=== PATIENT | female | born 1940 | race Two or more races ===

== ENCOUNTER → 2016-09-14 | Outpatient (CLI) | payer MEDICARE, OTHER ==
[~2016-09-14] MED LIST: GABA-497 OR; HYDR12.56 PO; LISI-646 PO; PANT40TA2 PO; PRAV20TA3 OR; TRAM50TA2 PO
[2016-09-14 09:17] LABS: Basophils # (auto) 0 uL; Basophils % (auto) 0.2 % (0.0-2.0); Eosinophils # (auto) 0.1 uL; Eosinophils % (auto) 1.9 % (0.0-7.0); Hematocrit 39.9 % (36.0-46.0); Hemoglobin 13.6 g/dL (12.2-16.2); Lymphocytes # (auto) 1.3 uL; Lymphocytes % (auto) 22.6 % (10.0-50.0); Mean Corpuscular Hemoglobin 31.3 pg (28.0-32.0); Mean Corpuscular Hgb Conc. 34.2 g/dL (32.0-36.0); Mean Corpuscular Volume 91.8 fL (80.0-100.0); Mean Platelet Volume 8.3 fL (7.4-10.4); Monocytes # (auto) 0.4 uL; Monocytes % (auto) 7.5 % (0.0-12.0); Neutrophils % (auto) 67.8 % (37.0-80.0); Platelet Count (auto) 281 10^3/uL (140-450); Red Cell Distribution Width 13.7 % (11.6-16.0)
[2016-09-14 09:38] LABS: Albumin 3.8 g/dL (3.4-5.0); BUN/Creatinine Ratio 23.3; Bilirubin, Total 0.5 mg/dL (0.2-1.0); Calcium 9.4 mg/dL (8.5-10.1); Potassium 4.3 mmol/L (3.5-5.1); Total Protein 7.9 g/dL (6.4-8.2)
== END | disposition home or self-care (01) ==
LOC: LAB 08:35
PROVIDERS: ATTEND Physician Assistant
DX: E78.5 Hyperlipidemia, unspecified (principal); I10 Essential (primary) hypertension; M46.06 Spinal enthesopathy, lumbar region; G62.9 Polyneuropathy, unspecified; M81.0 Age-related osteoporosis without current pathological fracture; Z68.31 Body mass index [BMI] 31.0-31.9, adult; E78.4 Other hyperlipidemia; R73.9 Hyperglycemia, unspecified
CPT/HCPCS: 36415; 80053; 80061; 82306; 82607; 83036; 85025

== ENCOUNTER → 2017-10-16 | Outpatient (CLI) | payer MEDICARE, OTHER ==
[~2017-10-16] MED LIST changes: -GABA-497 OR; +GABA300C11 OR
[2017-10-16 08:12] LABS: Basophils # (auto) 0 uL; Basophils % (auto) 0.4 % (0.0-2.0); Eosinophils # (auto) 0.1 uL; Eosinophils % (auto) 1.6 % (0.0-7.0); Hematocrit 42.2 % (36.0-46.0); Hemoglobin 14.3 g/dL (12.2-16.2); Lymphocytes # (auto) 1.2 uL; Lymphocytes % (auto) 22.1 % (10.0-50.0); Mean Corpuscular Hemoglobin 30.9 pg (28.0-32.0); Mean Corpuscular Hgb Conc. 33.8 g/dL (32.0-36.0); Mean Corpuscular Volume 91.3 fL (80.0-100.0); Monocytes # (auto) 0.4 uL; Monocytes % (auto) 7.1 % (0.0-12.0); Neutrophils # (auto) 3.6 uL; Neutrophils % (auto) 68.8 % (37.0-80.0); Platelet Count (auto) 270 10^3/uL (140-450); Red Blood Cells 4.62 10^6/uL (4.0-5.20); Red Cell Distribution Width 13.6 % (11.8-14.3); White Blood Cell 5.2 10^3/uL (4.4-10.8)
[2017-10-16 09:05] LABS: BUN/Creatinine Ratio 14.7; Bilirubin, Total 0.6 mg/dL (0.2-1.0); Calcium 9.9 mg/dL (8.5-10.1); Potassium 4.2 mmol/L (3.5-5.1)
[2017-10-17 14:01] LABS: Urine Bacteria FEW /hpf (None Seen); Urine Blood Negative /uL (Negative); Urine Mucus FEW (None Seen); Urine Specific Gravity 1.009 (1.001-1.035); Urine WBC 103 /hpf (0 - 5); Urine WBC Clumps PRESENT /hpf (None Seen)
== END | disposition home or self-care (01) ==
LOC: LAB 07:20
PROVIDERS: ATTEND Nurse Practitioner
DX: I10 Essential (primary) hypertension (principal); E78.5 Hyperlipidemia, unspecified; R68.89 Other general symptoms and signs; R79.9 Abnormal finding of blood chemistry, unspecified; K21.9 Gastro-esophageal reflux disease without esophagitis
CPT/HCPCS: 36415; 80053; 80061; 81001; 83036; 85025

== ENCOUNTER 2017-11-17 12:40 | Emergency (ER) | payer MEDICARE, OTHER ==
[~2017-11-17] VITALS: Ht 152.4 cm; Wt 59.4 kg
[2017-11-17] MEDS ORDERED: SODIUM CHLORIDE 0.9% 1,000 ML IV ONE (16:53)
[2017-11-17] MEDS ORDERED: MORPHINE SULFATE 4 MG/ML SYR/VIAL IV ONE (17:00)
[2017-11-17] MEDS ORDERED: DEXAMETHASONE SOD PHOS 4 MG/1ML SDV INJ IV ONE (17:00)
[2017-11-17] MEDS ORDERED: METOCLOPRAMIDE HCL 5MG/ml INJ 2ml VIAL IV ONE (17:00)
[2017-11-17 17:54] VITALS: BP 151/54
== END 2017-11-17 18:00 | disposition home or self-care (01) ==
LOC: ER 12:40
DX: S32.038A Other fracture of third lumbar vertebra, initial encounter for closed fracture (principal); M80.00XA Age-related osteoporosis with current pathological fracture, unspecified site, initial encounter for fracture; M54.16 Radiculopathy, lumbar region; K21.9 Gastro-esophageal reflux disease without esophagitis; E78.5 Hyperlipidemia, unspecified; I10 Essential (primary) hypertension; Z88.0 Allergy status to penicillin; Z79.899 Other long term (current) drug therapy; Z90.710 Acquired absence of both cervix and uterus; X58.XXXA Exposure to other specified factors, initial encounter; Y93.89 Activity, other specified; Y92.89 Other specified places as the place of occurrence of the external cause; Y99.8 Other external cause status
CPT/HCPCS: 72100; 74018; 93005; 96374; 96375; 99284; J1100; J2270; J2765; J7030; 96361

== ENCOUNTER → 2018-09-17 | Outpatient (CLI) | payer MEDICARE, OTHER ==
[2018-09-17 09:01] LABS: Basophils # (auto) 0 uL; Basophils % (auto) 0.6 % (0.0-2.0); Eosinophils # (auto) 0.1 uL; Eosinophils % (auto) 1.6 % (0.0-7.0); Hematocrit 40.6 % (36.0-46.0); Hemoglobin 13.6 g/dL (12.2-16.2); Lymphocytes # (auto) 1.7 uL; Lymphocytes % (auto) 31.2 % (10.0-50.0); Mean Corpuscular Hgb Conc. 33.4 g/dL (32.0-36.0); Mean Corpuscular Volume 92.9 fL (80.0-100.0); Monocytes # (auto) 0.4 uL; Monocytes % (auto) 8.3 % (0.0-12.0); Neutrophils # (auto) 3.1 uL; Neutrophils % (auto) 58.3 % (37.0-80.0); Platelet Count (auto) 239 10^3/uL (140-450); Red Blood Cells 4.37 10^6/uL (4.0-5.20); Red Cell Distribution Width 12.4 % (11.8-14.3); White Blood Cell 5.4 10^3/uL (4.4-10.8)
[2018-09-17 09:58] LABS: Potassium 4.1 mmol/L (3.5-5.1)
[2018-09-17 09:59] LABS: Albumin 3.9 g/dL (3.4-5.0); Bilirubin, Total 0.5 mg/dL (0.2-1.0); Calcium 9.2 mg/dL (8.5-10.1); Total Protein 7.6 g/dL (6.4-8.2)
== END | disposition home or self-care (01) ==
LOC: LAB 08:22
PROVIDERS: ATTEND Physician Assistant
DX: E78.5 Hyperlipidemia, unspecified (principal); M81.0 Age-related osteoporosis without current pathological fracture; I10 Essential (primary) hypertension; K21.9 Gastro-esophageal reflux disease without esophagitis; E55.9 Vitamin D deficiency, unspecified; R94.6 Abnormal results of thyroid function studies
CPT/HCPCS: 36415; 80053; 80061; 82306; 84443; 85025

== ENCOUNTER → 2020-01-22 | Outpatient (CLI) | payer MEDICARE, OTHER ==
[2020-01-22 08:57] LABS: Albumin 4.1 g/dL (3.4-5.0); Calcium 9.1 mg/dL (8.5-10.1); Potassium 4.2 mmol/L (3.5-5.1)
[2020-01-22 09:03] LABS: BUN/Creatinine Ratio 23.8; Bilirubin, Total 0.6 mg/dL (0.2-1.0); Total Protein 7.9 g/dL (6.4-8.2)
[2020-01-22 09:33] LABS: Basophils # (auto) 0 10 ^3/uL (0-0.2); Basophils % (auto) 0.5 % (0.0-2.0); Eosinophils # (auto) 0.1 10 ^3/uL (0-0.8); Eosinophils % (auto) 1.2 % (0.0-7.0); Hematocrit 39.5 % (36.0-46.0); Hemoglobin 13.8 g/dL (12.2-16.2); Lymphocytes # (auto) 1.2 10 ^3/uL (0.4-5.4); Lymphocytes % (auto) 22.5 % (10.0-50.0); Mean Corpuscular Hemoglobin 32.8 pg (28.0-32.0); Mean Corpuscular Hgb Conc. 34.9 g/dL (32.0-36.0); Mean Corpuscular Volume 94.1 fL (80.0-100.0); Monocytes # (auto) 0.3 10 ^3/uL (0-1.3); Monocytes % (auto) 6.4 % (0.0-12.0); Neutrophils # (auto) 3.7 10 ^3/uL (1.6-8.6); Neutrophils % (auto) 69.4 % (37.0-80.0); Nucleated Red Blood Cells % 0.1 %; Platelet Count (auto) 262 10^3/uL (140-450); Red Cell Distribution Width 12.4 % (11.8-14.3); White Blood Cell 5.3 10^3/uL (4.4-10.8)
== END | disposition home or self-care (01) ==
LOC: LAB 07:29
PROVIDERS: ATTEND Physician Assistant
DX: I10 Essential (primary) hypertension (principal); E78.5 Hyperlipidemia, unspecified; E55.9 Vitamin D deficiency, unspecified; Z00.00 Encounter for general adult medical examination without abnormal findings
CPT/HCPCS: 36415; 80053; 80061; 82306; 85025

== ENCOUNTER → 2020-05-12 | Outpatient (CLI) | payer MEDICARE, OTHER ==
[2020-05-12 11:09] LABS: Basophils # (auto) 0 10 ^3/uL (0-0.2); Basophils % (auto) 0.4 % (0.0-2.0); Eosinophils # (auto) 0.1 10 ^3/uL (0-0.8); Eosinophils % (auto) 2.2 % (0.0-7.0); Hematocrit 37.9 % (36.0-46.0); Hemoglobin 12.6 g/dL (12.2-16.2); Lymphocytes # (auto) 1.1 10 ^3/uL (0.4-5.4); Lymphocytes % (auto) 22.6 % (10.0-50.0); Mean Corpuscular Hemoglobin 31.2 pg (28.0-32.0); Mean Corpuscular Hgb Conc. 33.4 g/dL (32.0-36.0); Mean Corpuscular Volume 93.3 fL (80.0-100.0); Monocytes # (auto) 0.5 10 ^3/uL (0-1.3); Monocytes % (auto) 10.2 % (0.0-12.0); Neutrophils # (auto) 3.2 10 ^3/uL (1.6-8.6); Neutrophils % (auto) 64.6 % (37.0-80.0); Platelet Count (auto) 277 10^3/uL (140-450); Red Blood Cells 4.06 10^6/uL (4.0-5.20); Red Cell Distribution Width 12.6 % (11.8-14.3); White Blood Cell 4.9 10^3/uL (4.4-10.8)
[2020-05-12 11:54] LABS: Albumin 3.8 g/dL (3.4-5.0); Calcium 9.1 mg/dL (8.5-10.1)
[2020-05-12 11:57] LABS: BUN/Creatinine Ratio 17.6; Bilirubin, Total 0.4 mg/dL (0.2-1.0); Total Protein 7.6 g/dL (6.4-8.2)
[2020-05-12 17:24] LABS: Urine Blood Negative /uL (Negative); Urine Specific Gravity 1.012 (1.001-1.035)
== END | disposition home or self-care (01) ==
LOC: LAB 10:48
PROVIDERS: ATTEND Internal Medicine Gastroenterology
DX: R19.7 Diarrhea, unspecified (principal); R10.9 Unspecified abdominal pain
CPT/HCPCS: 36415; 80053; 81003; 82270; 84443; 85025; 85048; 87045; 87177; 87427; 87493

== ENCOUNTER → 2020-06-18 | Outpatient (CLI) | payer MEDICARE | END | disposition home or self-care (01) | LOC: LAB 14:21 | PROVIDERS: ATTEND Internal Medicine Gastroenterology | DX: A04.71 Enterocolitis due to Clostridium difficile, recurrent (principal); Z79.899 Other long term (current) drug therapy | CPT/HCPCS: 87086 ==

== ENCOUNTER 2020-09-28 09:23 | Inpatient (IN) | payer MEDICARE, OTHER ==
[2020-09-28] VITALS (8 sets, daily range): BP systolic 101–150; BP diastolic 39–86
[~2020-09-28] VITALS: Ht 152.4 cm; Wt 53.2 kg
[~2020-09-28 09:23] MED LIST changes: -LISI-646 PO; +LISI20TA28 PO
[2020-09-28 10:20] LABS: Basophils # (auto) 0 10 ^3/uL (0-0.2); Basophils % (auto) 0.7 % (0.0-2.0); Eosinophils # (auto) 0 10 ^3/uL (0-0.8)
[2020-09-28 10:22] LABS: Eosinophils % (auto) 0.3 % (0.0-7.0); Hematocrit 15.4 % (36.0-46.0); Lymphocytes # (auto) 1.4 10 ^3/uL (0.4-5.4); Lymphocytes % (auto) 32.3 % (10.0-50.0); Mean Corpuscular Hemoglobin 20.7 pg (28.0-32.0); Monocytes # (auto) 0.3 10 ^3/uL (0-1.3); Monocytes % (auto) 6.9 % (0.0-12.0); Neutrophils # (auto) 2.7 10 ^3/uL (1.6-8.6); Neutrophils % (auto) 59.8 % (37.0-80.0); Nucleated Red Blood Cells % 2.9 %; Red Blood Cells 2.23 10^6/uL (4.0-5.20); Red Cell Distribution Width 18.9 % (11.8-14.3); White Blood Cell 4.5 10^3/uL (4.4-10.8)
[2020-09-28 10:26] LABS: Albumin 3.5 g/dL (3.4-5.0); Calcium 8.6 mg/dL (8.5-10.1); Potassium 4.2 mmol/L (3.5-5.1)
[2020-09-28 10:29] LABS: Bilirubin, Total 0.6 mg/dL (0.2-1.0); Hemoglobin 4.6 g/dL (12.2-16.2)
[2020-09-28] MEDS ORDERED: ALEN70TA74 PO (10:54)
[2020-09-28] MEDS ORDERED: CHOL4POW4 PO (10:54)
[2020-09-28] MEDS ORDERED: HYDR25TA5 PO (10:54)
[2020-09-28] MEDS ORDERED: PANT40T PO (10:54)
[2020-09-28] MEDS ORDERED: PRAV20TA3 (10:54)
[2020-09-28] MEDS ORDERED: ACET30TA15 (10:54)
[2020-09-28 13:02] LABS: INR 1.03 (0.9-1.15); Partial Thromboplastin Time 22.2 sec (23.0-31.2)
[2020-09-28 13:38] LABS: Urine Bacteria MANY /hpf (None Seen); Urine Blood Negative /uL (Negative); Urine Specific Gravity 1.014 (1.001-1.035); Urine WBC 12 /hpf (0 - 5)
[2020-09-28] MEDS ORDERED: NITROGLYCERIN 0.4 MG SL TAB SL PRN (14:15)
[2020-09-28] MEDS ORDERED: ONDANSETRON HCL 4 MG/2 ML VIAL IV PRN (14:15)
[2020-09-28] MEDS ORDERED: MORPHINE SULFATE INJECTION 2 MG/ML SYRG IV PRN ×2 (14:15)
[2020-09-28] MEDS ORDERED: ACETAMINOPHEN 325 MG TAB PO PRN (14:15)
[2020-09-28 16:15] LABS: Folate (Folic Acid) > 24.00 ng/mL (5.38-24)
[2020-09-28] MEDS: FUROSEMIDE 40 MG/4 ML VIAL IV SCH (18:36)
[2020-09-28] MEDS: ATORVASTATIN 20 MG TAB PO SCH (22:28)
[2020-09-28] MEDS: METOPROLOL TARTRATE 25 MG TAB PO SCH (22:29)
[2020-09-28 23:04] LABS: Hematocrit 19.9 % (36.0-46.0); Hemoglobin 7.6 g/dL (12.2-16.2)
[2020-09-29] VITALS (10 sets, daily range): BP systolic 128–147; BP diastolic 49–72
[2020-09-29] MEDS: ACETAMINOPHEN/CODEINE#3 (300/30mg) TAB PO PRN (03:29)
[2020-09-29] MEDS: FUROSEMIDE 40 MG/4 ML VIAL IV SCH (06:05)
[2020-09-29 06:35] LABS: Basophils # (auto) 0 10 ^3/uL (0-0.2); Basophils % (auto) 0.5 % (0.0-2.0); Eosinophils # (auto) 0.1 10 ^3/uL (0-0.8); Eosinophils % (auto) 0.6 % (0.0-7.0); Hematocrit 23.7 % (36.0-46.0); Hemoglobin 7.7 g/dL (12.2-16.2); Lymphocytes # (auto) 1.3 10 ^3/uL (0.4-5.4); Lymphocytes % (auto) 15.9 % (10.0-50.0); Mean Corpuscular Hemoglobin 23.5 pg (28.0-32.0); Mean Corpuscular Hgb Conc. 32.3 g/dL (32.0-36.0); Mean Corpuscular Volume 72.7 fL (80.0-100.0); Monocytes # (auto) 0.6 10 ^3/uL (0-1.3); Monocytes % (auto) 7.4 % (0.0-12.0); Neutrophils # (auto) 6.2 10 ^3/uL (1.6-8.6); Neutrophils % (auto) 75.6 % (37.0-80.0); Nucleated Red Blood Cells % 3.1 %; Red Blood Cells 3.25 10^6/uL (4.0-5.20); Red Cell Distribution Width 20.4 % (11.8-14.3); White Blood Cell 8.2 10^3/uL (4.4-10.8)
[2020-09-29 06:51] LABS: Calcium 8.3 mg/dL (8.5-10.1); Potassium 4.3 mmol/L (3.5-5.1)
[2020-09-29 06:57] LABS: BUN/Creatinine Ratio 23.9
[2020-09-29] MEDS: METOPROLOL TARTRATE 25 MG TAB PO SCH ×2 (09:45→21:55)
[2020-09-29] MEDS: PANTOPRAZOLE 40 MG TAB PO SCH (09:45)
[2020-09-29] MEDS ORDERED: LISINOPRIL 10 MG TAB PO SCH (10:00)
[2020-09-29] MEDS ORDERED: cefTRIAXone 1GM/50ML D5W 50 ML IV ONE (12:00)
[2020-09-29] MEDS ORDERED: ACETYLCYSTEINE ORAL for CIN 20%(200MG/ML) 4ML PO ONE (17:00)
[2020-09-29] MEDS: ATORVASTATIN 20 MG TAB PO SCH (21:54)
[2020-09-30 04:48] VITALS: BP 150/70
[2020-09-30] MEDS: ACETYLCYSTEINE ORAL for CIN 20%(200MG/ML) 4ML PO SCH ×2 (05:14→18:04)
[2020-09-30 07:23] LABS: Hematocrit 27.7 % (36.0-46.0); Hemoglobin 9.1 g/dL (12.2-16.2); Mean Corpuscular Hemoglobin 26.6 pg (28.0-32.0); White Blood Cell 7.2 10^3/uL (4.4-10.8)
[2020-09-30 07:25] LABS: Mean Corpuscular Hgb Conc. 32.7 g/dL (32.0-36.0); Mean Corpuscular Volume 81.5 fL (80.0-100.0)
[2020-09-30 07:29] LABS: Potassium 3.4 mmol/L (3.5-5.1)
[2020-09-30 07:30] LABS: Red Cell Distribution Width 22.9 % (11.8-14.3)
[2020-09-30 07:32] LABS: Band Neutrophils % (manual) 0; Basophils % (manual) 0 (0.0-2.0); Blast Cells 0; Metamyelocytes % 0; Myelocytes % 0; Promyelocytes % 0; Reactive Lymphocytes 0
[2020-09-30 07:33] LABS: Calcium 8.6 mg/dL (8.5-10.1)
[2020-09-30 08:09] LABS: Eosinophils % (manual) 2 (0-7); Lymphocytes % (manual) 7 (10.0-50.0); Monocytes % (manual) 6 (0-12)
[2020-09-30 08:30] VITALS: BP 139/65
[2020-09-30] MEDS: cefTRIAXone 1GM/50ML D5W 50 ML IV SCH (08:46)
[2020-09-30] MEDS: METOPROLOL TARTRATE 25 MG TAB PO SCH ×2 (08:47→21:56)
[2020-09-30] MEDS ORDERED: POTASSIUM CHL 10 Meq TABLET PO ONE (09:15)
[2020-09-30] MEDS: PANTOPRAZOLE 40 MG TAB PO SCH (09:50)
[2020-09-30] MEDS ORDERED: FUROSEMIDE 40 MG/4 ML VIAL IV SCH (10:00)
[2020-09-30 12:30] VITALS: BP 147/68
[2020-09-30] MEDS ORDERED: ANGIOMAX 250 MG VIAL IV ONE (14:31)
[2020-09-30] MEDS ORDERED: fentaNYL CITRATE 100 MCG/2 ML VL ONE (14:31)
[2020-09-30] MEDS ORDERED: MIDAZOLAM HCL 2MG/2ML 2ml VIAL (1mg/ml) ONE (14:32)
[2020-09-30] MEDS ORDERED: SODIUM CHL 0.9% 0 ML ONE (14:32)
[2020-09-30] MEDS ORDERED: LIDOCAINE 2%HCL (LOCAL ANESTH.) INJ 20ML MDV ONE ×2 (14:32→14:37)
[2020-09-30 17:00] VITALS: BP 134/66
[2020-09-30] MEDS: ACETAMINOPHEN/CODEINE#3 (300/30mg) TAB PO PRN (17:46)
[2020-09-30] MEDS: ATORVASTATIN 20 MG TAB PO SCH (21:55)
[2020-09-30 22:00] VITALS: BP 147/63
[2020-10-01 05:00] VITALS: BP 148/70
[2020-10-01] MEDS: ACETYLCYSTEINE ORAL for CIN 20%(200MG/ML) 4ML PO SCH (05:25)
[2020-10-01] MEDS: ACETAMINOPHEN/CODEINE#3 (300/30mg) TAB PO PRN (05:26)
[2020-10-01 05:40] LABS: Hemoglobin 8.7 g/dL (12.2-16.2)
[2020-10-01 06:01] LABS: Calcium 8.6 mg/dL (8.5-10.1); Potassium 3.6 mmol/L (3.5-5.1)
[2020-10-01 06:03] LABS: BUN/Creatinine Ratio 28.9
[2020-10-01 08:00] VITALS: BP 135/60
[2020-10-01 09:00] VITALS: BP 135/60
[2020-10-01] MEDS: cefTRIAXone 1GM/50ML D5W 50 ML IV SCH (09:48)
[2020-10-01] MEDS: METOPROLOL TARTRATE 25 MG TAB PO SCH (09:49)
[2020-10-01] MEDS: PANTOPRAZOLE 40 MG TAB PO SCH (09:49)
[2020-10-01 12:40] VITALS: BP 120/59
[2020-10-01] MEDS ORDERED: PANT40T PO (13:10)
[2020-10-01] MEDS ORDERED: MET25T PO (13:10)
[2020-10-01] MEDS ORDERED: CEPH500T PO (13:13)
[2020-10-01] MEDS ORDERED: FUROSEMIDE 40 MG TAB PO ONE (13:15)
[2020-10-01] MEDS ORDERED: POTASSIUM CHL 10 Meq TABLET PO ONE (13:15)
[2020-10-01 16:57] VITALS: BP 137/61
[2020-10-01 17:12] VITALS: BP 110/57
[2020-12-14] MEDS ORDERED: FER325T PO (11:05)
== END 2020-10-01 17:40 | disposition home health service (06) | DRG 811 ==
LOC: ER 09:23 → TELE 14:12 → TELE-EAST 17:47
PROVIDERS: ADMIT Nurse Practitioner Acute Care; ATTEND Internal Medicine
PROC: 30233N1 Transfusion of Nonautologous Red Blood Cells into Peripheral Vein, Percutaneous Approach (ICD-10-PCS; 2020-09-28)
PROC: 4A023N8 Measurement of Cardiac Sampling and Pressure, Bilateral, Percutaneous Approach (ICD-10-PCS; principal; 2020-09-30)
PROC: B211YZZ Fluoroscopy of Multiple Coronary Arteries using Other Contrast (ICD-10-PCS; 2020-09-30)
PROC: B215YZZ Fluoroscopy of Left Heart using Other Contrast (ICD-10-PCS; 2020-09-30)
DX: D50.9 Iron deficiency anemia, unspecified (principal); I50.43 Acute on chronic combined systolic (congestive) and diastolic (congestive) heart failure; E87.1 Hypo-osmolality and hyponatremia; N39.0 Urinary tract infection, site not specified; M48.54XA Collapsed vertebra, not elsewhere classified, thoracic region, initial encounter for fracture; I27.20 Pulmonary hypertension, unspecified; I11.0 Hypertensive heart disease with heart failure; R09.89 Other specified symptoms and signs involving the circulatory and respiratory systems; E78.5 Hyperlipidemia, unspecified; M19.90 Unspecified osteoarthritis, unspecified site; M81.0 Age-related osteoporosis without current pathological fracture; B96.20 Unspecified Escherichia coli [E. coli] as the cause of diseases classified elsewhere; K21.9 Gastro-esophageal reflux disease without esophagitis; M43.8X4 Other specified deforming dorsopathies, thoracic region; I50.83 High output heart failure; N81.10 Cystocele, unspecified; K44.9 Diaphragmatic hernia without obstruction or gangrene; Z20.822 Contact with and (suspected) exposure to COVID-19; Z88.0 Allergy status to penicillin; Z90.710 Acquired absence of both cervix and uterus; Z79.899 Other long term (current) drug therapy
CPT/HCPCS: 36415; 36430; 71045; 74176; 80048; 80053; 80061; 81001; 82270; 82607; 82746; 83010; 83615; 83880; 84443; 85007; 85014; 85018; 85025; 85027; 85045; 85610; 85730; 86850; 86880; 86900; 86901; 86920; 87086; 87088; 87186; 87426; 93005; 93306; 93460; 93926; 93970; 96365; 96375; 99152; 99153; C1751; G0378; J0696; J2250

== ENCOUNTER → 2020-10-08 | Outpatient (CLI) | payer MEDICARE ==
[~2020-10-08] MED LIST changes: +ACET30TA15; +ALEN70TA74 PO; +CEPH500T PO; +HYDR25TA5 PO; +MET25T PO; +PANT40T PO; -PRAV20TA3 OR
[2020-10-08 12:35] LABS: Basophils # (auto) 0.1 10 ^3/uL (0-0.2); Eosinophils # (auto) 0.1 10 ^3/uL (0-0.8); Lymphocytes # (auto) 1.4 10 ^3/uL (0.4-5.4); Monocytes # (auto) 0.6 10 ^3/uL (0-1.3); Platelet Count (auto) 326 10^3/uL (140-450)
[2020-10-08 12:37] LABS: Basophils % (auto) 1.1 % (0.0-2.0); Eosinophils % (auto) 1.5 % (0.0-7.0); Hematocrit 23.9 % (36.0-46.0); Lymphocytes % (auto) 28.1 % (10.0-50.0); Mean Corpuscular Hemoglobin 25.4 pg (28.0-32.0); Mean Corpuscular Hgb Conc. 33.6 g/dL (32.0-36.0); Mean Corpuscular Volume 75.8 fL (80.0-100.0); Monocytes % (auto) 11.5 % (0.0-12.0); Neutrophils # (auto) 2.9 10 ^3/uL (1.6-8.6); Neutrophils % (auto) 57.8 % (37.0-80.0); Nucleated Red Blood Cells % 0.1 %; Red Blood Cells 3.15 10^6/uL (4.0-5.20)
[2020-10-08 12:38] LABS: Red Cell Distribution Width 24.4 % (11.8-14.3)
[2020-10-08 12:56] LABS: BUN/Creatinine Ratio 39.7; Calcium 8.5 mg/dL (8.5-10.1); Potassium 4.4 mmol/L (3.5-5.1)
== END | disposition home or self-care (01) ==
LOC: LAB 12:15
PROVIDERS: ATTEND Internal Medicine
DX: D64.9 Anemia, unspecified (principal); I27.20 Pulmonary hypertension, unspecified
CPT/HCPCS: 36415; 80048; 85025

== ENCOUNTER 2020-12-09 17:36 | Inpatient (IN) | payer MEDICARE, OTHER ==
[~2020-12-09] VITALS: Ht 149.9 cm; Wt 57.8 kg
[2020-12-09 19:16] LABS: Basophils # (auto) 0 10 ^3/uL (0-0.2); Monocytes # (auto) 0.5 10 ^3/uL (0-1.3)
[2020-12-09 19:19] LABS: Basophils % (auto) 0.9 % (0.0-2.0); Eosinophils # (auto) 0.1 10 ^3/uL (0-0.8); Hematocrit 18.4 % (36.0-46.0); Lymphocytes % (auto) 18.3 % (10.0-50.0); Mean Corpuscular Hemoglobin 21.4 pg (28.0-32.0); Mean Corpuscular Hgb Conc. 29.6 g/dL (32.0-36.0); Mean Corpuscular Volume 72.3 fL (80.0-100.0); Monocytes % (auto) 8.9 % (0.0-12.0); Neutrophils # (auto) 3.9 10 ^3/uL (1.6-8.6); Neutrophils % (auto) 70.9 % (37.0-80.0); Nucleated Red Blood Cells % 0.9 %; Red Blood Cells 2.54 10^6/uL (4.0-5.20); White Blood Cell 5.5 10^3/uL (4.4-10.8)
[2020-12-09 19:28] LABS: Hemoglobin 5.4 g/dL (12.2-16.2)
[2020-12-09 19:34] LABS: Albumin 2.9 g/dL (3.4-5.0); Calcium 8.4 mg/dL (8.5-10.1); Potassium 4.2 mmol/L (3.5-5.1)
[2020-12-09 19:40] LABS: BUN/Creatinine Ratio 20.4; Bilirubin, Total 0.3 mg/dL (0.2-1.0)
[2020-12-09 20:07] LABS: INR 0.99 (0.9-1.15); Partial Thromboplastin Time 23.9 sec (23.6-33.0)
[2020-12-09 21:31] VITALS: BP 114/39
[2020-12-09] MEDS ORDERED: ALBUMIN 25% 50 ML IV ONE (21:45)
[2020-12-09] MEDS ORDERED: MORPHINE SULFATE INJECTION 2 MG/2 ML SYRG IV PRN (21:45)
[2020-12-09] MEDS ORDERED: DOCUSATE SOD 100 MG CAP PO PRN (21:45)
[2020-12-09] MEDS ORDERED: NITROGLYCERIN 0.4 MG SL TAB SL PRN (21:45)
[2020-12-09] MEDS ORDERED: ONDANSETRON HCL 4 MG/2 ML VIAL IV PRN (21:45)
[2020-12-09] MEDS ORDERED: SODIUM CHLORIDE 0.9% 1,000 ML IV SCH (21:45)
[2020-12-09] MEDS ORDERED: ACETAMINOPHEN 325 MG TAB PO PRN (21:45)
[2020-12-09 21:50] VITALS: BP 115/39
[2020-12-09] MEDS ORDERED: FAMOTIDINE (10MG/ML) 2ML VL IV SCH (22:00)
[2020-12-09] MEDS: ASCORBIC ACID 500 MG TAB PO SCH (22:39)
[2020-12-09] MEDS: FAMOTIDINE (10MG/ML) 2ML VL IV SCH (23:34)
[2020-12-10] MEDS: HYDROcodone-ACET 5/325MG TAB PO PRN ×2 (00:12→10:04)
[2020-12-10 00:39] VITALS: BP 124/44
[2020-12-10 00:49] VITALS: BP 124/44
[2020-12-10 03:00] VITALS: BP 133/65
[2020-12-10 04:00] VITALS: BP 141/64
[2020-12-10 04:31] VITALS: BP 147/60
[2020-12-10 07:43] LABS: Basophils # (auto) 0 10 ^3/uL (0-0.2); Eosinophils # (auto) 0.1 10 ^3/uL (0-0.8); Eosinophils % (auto) 0.9 % (0.0-7.0); Lymphocytes # (auto) 1.2 10 ^3/uL (0.4-5.4); Neutrophils # (auto) 4.4 10 ^3/uL (1.6-8.6)
[2020-12-10 07:45] LABS: Basophils % (auto) 0.7 % (0.0-2.0); Hematocrit 24.8 % (36.0-46.0); Lymphocytes % (auto) 18.9 % (10.0-50.0); Mean Corpuscular Hemoglobin 24.8 pg (28.0-32.0); Mean Corpuscular Hgb Conc. 32.3 g/dL (32.0-36.0); Mean Corpuscular Volume 76.7 fL (80.0-100.0); Monocytes # (auto) 0.7 10 ^3/uL (0-1.3); Monocytes % (auto) 10.4 % (0.0-12.0); Neutrophils % (auto) 69.1 % (37.0-80.0); Nucleated Red Blood Cells % 0.6 %; Red Blood Cells 3.23 10^6/uL (4.0-5.20); White Blood Cell 6.4 10^3/uL (4.4-10.8)
[2020-12-10 07:49] LABS: Red Cell Distribution Width 22.1 % (11.8-14.3)
[2020-12-10 07:58] LABS: Albumin 2.8 g/dL (3.4-5.0); Calcium 8.2 mg/dL (8.5-10.1); Potassium 4.3 mmol/L (3.5-5.1)
[2020-12-10 08:02] LABS: BUN/Creatinine Ratio 24.7; Bilirubin, Total 0.5 mg/dL (0.2-1.0); Total Protein 6.5 g/dL (6.4-8.2)
[2020-12-10] MEDS: FAMOTIDINE (10MG/ML) 2ML VL IV SCH (09:48)
[2020-12-10] MEDS: MULTIPLE VITAMIN TAB PO SCH (09:52)
[2020-12-10] MEDS: ZINC SULFATE 220mg CAP or TAB PO SCH (09:52)
[2020-12-10] MEDS: ASCORBIC ACID 500 MG TAB PO SCH ×2 (09:52→21:17)
[2020-12-10] MEDS ORDERED: PANTOPRAZOLE 40 MG TAB PO ONE (12:15)
[2020-12-10] MEDS: GABAPENTIN 300 MG CAP PO SCH ×2 (15:19→21:17)
[2020-12-10] MEDS: Ensure HIGH Protein Chocolate 8oz Bottle PO SCH (17:45)
[2020-12-10] MEDS: METOPROLOL TARTRATE 25 MG TAB PO SCH (21:16)
[2020-12-10 22:00] VITALS: BP 141/62
[2020-12-10] MEDS: traMADol HCL 50 MG TAB PO PRN (22:33)
[2020-12-10 23:14] LABS: Urine Bacteria FEW /hpf (None Seen); Urine Blood Negative /uL (Negative); Urine Specific Gravity 1.009 (1.001-1.035); Urine WBC 32 /hpf (0 - 5)
[2020-12-11 05:00] VITALS: BP 153/77
[2020-12-11 05:47] LABS: % Iron Saturation 3.1 % (15-50)
[2020-12-11 05:52] LABS: Potassium 4.2 mmol/L (3.5-5.1)
[2020-12-11] MEDS: GABAPENTIN 300 MG CAP PO SCH ×2 (05:58→13:27)
[2020-12-11 06:01] LABS: Albumin 2.8 g/dL (3.4-5.0); Bilirubin, Total 0.6 mg/dL (0.2-1.0); Calcium 8.7 mg/dL (8.5-10.1); Total Protein 6.5 g/dL (6.4-8.2)
[2020-12-11 06:50] LABS: Basophils # (auto) 0 10 ^3/uL (0-0.2); Basophils % (auto) 0.4 % (0.0-2.0); Eosinophils # (auto) 0.1 10 ^3/uL (0-0.8); Eosinophils % (auto) 0.9 % (0.0-7.0); Hematocrit 26.6 % (36.0-46.0); Hemoglobin 8.3 g/dL (12.2-16.2); Lymphocytes # (auto) 1.2 10 ^3/uL (0.4-5.4); Lymphocytes % (auto) 14.5 % (10.0-50.0); Mean Corpuscular Hemoglobin 23.7 pg (28.0-32.0); Mean Corpuscular Volume 76.4 fL (80.0-100.0); Monocytes # (auto) 0.6 10 ^3/uL (0-1.3); Neutrophils # (auto) 6.2 10 ^3/uL (1.6-8.6); Neutrophils % (auto) 76.2 % (37.0-80.0); Nucleated Red Blood Cells % 0.5 %; Red Blood Cells 3.48 10^6/uL (4.0-5.20); Red Cell Distribution Width 22.2 % (11.8-14.3); White Blood Cell 8.1 10^3/uL (4.4-10.8)
[2020-12-11] MEDS: Ensure HIGH Protein Chocolate 8oz Bottle PO SCH ×3 (08:00→18:00)
[2020-12-11 09:00] VITALS: BP 133/76
[2020-12-11] MEDS: ACETAMINOPHEN/CODEINE#3 (300/30mg) TAB PO PRN ×2 (09:30→17:13)
[2020-12-11] MEDS: METOPROLOL TARTRATE 25 MG TAB PO SCH ×2 (10:00→22:23)
[2020-12-11] MEDS: ASCORBIC ACID 500 MG TAB PO SCH ×2 (10:00→22:24)
[2020-12-11] MEDS: LISINOPRIL 10 MG TAB PO SCH (10:00)
[2020-12-11] MEDS: MULTIPLE VITAMIN TAB PO SCH (10:00)
[2020-12-11] MEDS: HCTZ 25 MG TAB PO SCH (10:00)
[2020-12-11] MEDS: PANTOPRAZOLE 40 MG TAB PO SCH (10:00)
[2020-12-11] MEDS: ZINC SULFATE 220mg CAP or TAB PO SCH (10:00)
[2020-12-11] MEDS: FAMOTIDINE (10MG/ML) 2ML VL IV SCH (10:14)
[2020-12-11] MEDS ORDERED: levoFLOXacin 250 MG TAB PO ONE (10:45)
[2020-12-11 13:00] VITALS: BP 121/47
[2020-12-11 17:00] VITALS: BP 119/50
[2020-12-11 22:00] VITALS: BP 132/67
[2020-12-11] MEDS: GABAPENTIN 400 MG CAP PO SCH (22:24)
[2020-12-12] MEDS: ACETAMINOPHEN/CODEINE#3 (300/30mg) TAB PO PRN ×3 (00:47→23:58)
[2020-12-12 05:00] VITALS: BP 132/58
[2020-12-12 07:25] LABS: Basophils # (auto) 0 10 ^3/uL (0-0.2); Basophils % (auto) 0.7 % (0.0-2.0); Eosinophils # (auto) 0.1 10 ^3/uL (0-0.8); Hematocrit 26.9 % (36.0-46.0); Hemoglobin 8.6 g/dL (12.2-16.2); Lymphocytes # (auto) 1.4 10 ^3/uL (0.4-5.4); Lymphocytes % (auto) 23.4 % (10.0-50.0); Mean Corpuscular Hemoglobin 24.8 pg (28.0-32.0); Mean Corpuscular Hgb Conc. 31.9 g/dL (32.0-36.0); Mean Corpuscular Volume 77.9 fL (80.0-100.0); Monocytes # (auto) 0.7 10 ^3/uL (0-1.3); Monocytes % (auto) 11.3 % (0.0-12.0); Neutrophils # (auto) 3.8 10 ^3/uL (1.6-8.6); Neutrophils % (auto) 62.6 % (37.0-80.0); Nucleated Red Blood Cells % 0.4 %; Red Blood Cells 3.45 10^6/uL (4.0-5.20); White Blood Cell 6.1 10^3/uL (4.4-10.8)
[2020-12-12 07:26] LABS: Red Cell Distribution Width 22.5 % (11.8-14.3)
[2020-12-12 07:48] LABS: Calcium 8.8 mg/dL (8.5-10.1); Potassium 4.3 mmol/L (3.5-5.1)
[2020-12-12 07:50] LABS: BUN/Creatinine Ratio 41.4
[2020-12-12 09:00] VITALS: BP 149/75
[2020-12-12] MEDS ORDERED: GOLYTELY 4L KIT PO ONE (10:00)
[2020-12-12] MEDS ORDERED: levoFLOXacin 250 MG TAB PO SCH (10:00)
[2020-12-12] MEDS: FAMOTIDINE (10MG/ML) 2ML VL IV SCH (10:44)
[2020-12-12] MEDS: ZINC SULFATE 220mg CAP or TAB PO SCH (10:46)
[2020-12-12] MEDS: HCTZ 25 MG TAB PO SCH (10:47)
[2020-12-12] MEDS: MULTIPLE VITAMIN TAB PO SCH (10:49)
[2020-12-12] MEDS: METOPROLOL TARTRATE 25 MG TAB PO SCH ×2 (10:49→22:47)
[2020-12-12] MEDS: PANTOPRAZOLE 40 MG TAB PO SCH (10:50)
[2020-12-12] MEDS: ASCORBIC ACID 500 MG TAB PO SCH ×2 (10:50→22:48)
[2020-12-12] MEDS: GABAPENTIN 400 MG CAP PO SCH ×2 (10:50→22:47)
[2020-12-12] MEDS: LISINOPRIL 10 MG TAB PO SCH (10:50)
[2020-12-12] MEDS: Ensure HIGH Protein Chocolate 8oz Bottle PO SCH ×3 (10:58→18:16)
[2020-12-12 13:06] VITALS: BP 148/61
[2020-12-12 16:49] VITALS: BP 147/74
[2020-12-12] MEDS: traMADol HCL 50 MG TAB PO PRN (19:34)
[2020-12-12 22:00] VITALS: BP 121/55
[2020-12-13 05:37] VITALS: BP 140/49
[2020-12-13 06:09] LABS: Basophils # (auto) 0.1 10 ^3/uL (0-0.2); Eosinophils # (auto) 0.1 10 ^3/uL (0-0.8); Eosinophils % (auto) 2.2 % (0.0-7.0); Hematocrit 24.9 % (36.0-46.0); Hemoglobin 8.5 g/dL (12.2-16.2); Lymphocytes # (auto) 1.3 10 ^3/uL (0.4-5.4); Lymphocytes % (auto) 23.5 % (10.0-50.0); Mean Corpuscular Hemoglobin 27.9 pg (28.0-32.0); Mean Corpuscular Volume 81.9 fL (80.0-100.0); Monocytes # (auto) 0.5 10 ^3/uL (0-1.3); Neutrophils # (auto) 3.4 10 ^3/uL (1.6-8.6); Neutrophils % (auto) 63.3 % (37.0-80.0); Nucleated Red Blood Cells % 0.3 %; Red Blood Cells 3.05 10^6/uL (4.0-5.20); White Blood Cell 5.4 10^3/uL (4.4-10.8)
[2020-12-13 06:21] LABS: INR 1.05 (0.9-1.15)
[2020-12-13 06:32] LABS: Potassium 3.5 mmol/L (3.5-5.1)
[2020-12-13 06:54] LABS: BUN/Creatinine Ratio 18.5; Calcium 8.5 mg/dL (8.5-10.1)
[2020-12-13] MEDS: Ensure HIGH Protein Chocolate 8oz Bottle PO SCH ×3 (08:00→18:30)
[2020-12-13 09:00] VITALS: BP 159/76
[2020-12-13] MEDS: HCTZ 25 MG TAB PO SCH (09:55)
[2020-12-13] MEDS: LISINOPRIL 10 MG TAB PO SCH (09:55)
[2020-12-13] MEDS: METOPROLOL TARTRATE 25 MG TAB PO SCH ×2 (09:56→20:30)
[2020-12-13] MEDS: ASCORBIC ACID 500 MG TAB PO SCH ×2 (10:00→20:30)
[2020-12-13] MEDS: GABAPENTIN 400 MG CAP PO SCH ×2 (10:00→20:30)
[2020-12-13 12:51] VITALS: BP 157/72
[2020-12-13] MEDS ORDERED: MIDAZOLAM HCL 2MG/2ML 2ml VIAL (1mg/ml) ONE (13:06)
[2020-12-13] MEDS ORDERED: fentaNYL CITRATE 100 MCG/2 ML VL ONE (13:06)
[2020-12-13] MEDS ORDERED: ONDANSETRON HCL 4 MG/2 ML VIAL ONE (13:40)
[2020-12-13] MEDS ORDERED: ONDANSETRON HCL 4 MG/2 ML VIAL IV PRN (14:45)
[2020-12-13] MEDS: ZINC SULFATE 220mg CAP or TAB PO SCH (16:58)
[2020-12-13] MEDS: MULTIPLE VITAMIN TAB PO SCH (16:58)
[2020-12-13] MEDS: PANTOPRAZOLE 40 MG TAB PO SCH (16:58)
[2020-12-13 17:00] VITALS: BP 144/66
[2020-12-13] MEDS: traMADol HCL 50 MG TAB PO PRN (20:29)
[2020-12-13 22:00] VITALS: BP 121/57
[2020-12-14 05:00] VITALS: BP 132/64
[2020-12-14 06:57] LABS: Hemoglobin 8.5 g/dL (12.2-16.2)
[2020-12-14 07:02] LABS: Potassium 3.7 mmol/L (3.5-5.1)
[2020-12-14 07:03] LABS: Magnesium 1.8 mg/dL (1.6-2.6)
[2020-12-14 08:50] VITALS: BP 154/66
[2020-12-14] MEDS: ACETAMINOPHEN/CODEINE#3 (300/30mg) TAB PO PRN (09:56)
[2020-12-14] MEDS: ASCORBIC ACID 500 MG TAB PO SCH (09:57)
[2020-12-14] MEDS: METOPROLOL TARTRATE 25 MG TAB PO SCH (09:58)
[2020-12-14] MEDS: GABAPENTIN 400 MG CAP PO SCH (09:59)
[2020-12-14] MEDS: HCTZ 25 MG TAB PO SCH (09:59)
[2020-12-14] MEDS: PANTOPRAZOLE 40 MG TAB PO SCH (09:59)
[2020-12-14] MEDS: ZINC SULFATE 220mg CAP or TAB PO SCH (10:00)
[2020-12-14] MEDS: LISINOPRIL 10 MG TAB PO SCH (10:00)
[2020-12-14] MEDS: MULTIPLE VITAMIN TAB PO SCH (10:00)
[2020-12-14] MEDS: Ensure HIGH Protein Chocolate 8oz Bottle PO SCH ×2 (10:01→12:58)
[2020-12-14] MEDS ORDERED: MAGNESIUM SULFATE 1GM/100ML 100 ML IV ONE (10:15)
[2020-12-14] MEDS ORDERED: FER325T PO (11:05)
[2020-12-14 12:20] VITALS: BP 154/66
[2020-12-14] MEDS ORDERED: MAGNESIUM OXIDE 400 MG TAB PO ONE (12:30)
[2020-12-14 13:00] VITALS: BP 134/63
== END 2020-12-14 14:20 | disposition home health service (06) | DRG 812 ==
LOC: ER 17:36 → OVERFLOW 21:35 → WEST WING 12-10 02:56
PROVIDERS: ADMIT Nurse Practitioner Family; ATTEND Internal Medicine
PROC: 30233N1 Transfusion of Nonautologous Red Blood Cells into Peripheral Vein, Percutaneous Approach (ICD-10-PCS; principal; 2020-12-09)
PROC: 0DJ08ZZ Inspection of Upper Intestinal Tract, Via Natural or Artificial Opening Endoscopic (ICD-10-PCS; 2020-12-13)
PROC: 0DJD8ZZ Inspection of Lower Intestinal Tract, Via Natural or Artificial Opening Endoscopic (ICD-10-PCS; 2020-12-13 13:05)
DX: D50.9 Iron deficiency anemia, unspecified (principal); E87.1 Hypo-osmolality and hyponatremia; N17.9 Acute kidney failure, unspecified; E88.09 Other disorders of plasma-protein metabolism, not elsewhere classified; R73.9 Hyperglycemia, unspecified; E78.5 Hyperlipidemia, unspecified; I27.20 Pulmonary hypertension, unspecified; M81.0 Age-related osteoporosis without current pathological fracture; Z20.822 Contact with and (suspected) exposure to COVID-19; I12.9 Hypertensive chronic kidney disease with stage 1 through stage 4 chronic kidney disease, or unspecified chronic kidney disease; K57.30 Diverticulosis of large intestine without perforation or abscess without bleeding; K44.9 Diaphragmatic hernia without obstruction or gangrene; M19.90 Unspecified osteoarthritis, unspecified site; K21.9 Gastro-esophageal reflux disease without esophagitis; N18.9 Chronic kidney disease, unspecified; Z82.49 Family history of ischemic heart disease and other diseases of the circulatory system; Z88.0 Allergy status to penicillin; Z83.3 Family history of diabetes mellitus; Z87.11 Personal history of peptic ulcer disease; Z90.710 Acquired absence of both cervix and uterus
CPT/HCPCS: 36415; 36430; 71045; 80048; 80053; 81001; 83036; 83540; 83550; 83735; 83880; 84132; 84443; 85014; 85018; 85025; 85610; 85730; 86850; 86900; 86901; 86920; 87086; 87426; 93005; 96361; 96365; 97163; G0378; J2250; J2405; J3490

== ENCOUNTER → 2020-12-09 | Outpatient (CLI) | payer MEDICARE, OTHER ==
[2020-12-09 14:53] LABS: Basophils # (auto) 0 10 ^3/uL (0-0.2); Eosinophils # (auto) 0 10 ^3/uL (0-0.8); Eosinophils % (auto) 0.8 % (0.0-7.0); Monocytes # (auto) 0.6 10 ^3/uL (0-1.3); Nucleated Red Blood Cells % 0.4 %; White Blood Cell 5.4 10^3/uL (4.4-10.8)
[2020-12-09 14:54] LABS: Basophils % (auto) 0.7 % (0.0-2.0); Hematocrit 17.6 % (36.0-46.0); Lymphocytes # (auto) 1.7 10 ^3/uL (0.4-5.4); Lymphocytes % (auto) 31.2 % (10.0-50.0); Mean Corpuscular Hgb Conc. 29.4 g/dL (32.0-36.0); Mean Corpuscular Volume 71.4 fL (80.0-100.0); Monocytes % (auto) 10.7 % (0.0-12.0); Neutrophils % (auto) 56.6 % (37.0-80.0); Red Blood Cells 2.47 10^6/uL (4.0-5.20)
[2020-12-09 15:17] LABS: BUN/Creatinine Ratio 23.6; Hemoglobin 5.2 g/dL (12.2-16.2); Potassium 4.2 mmol/L (3.5-5.1)
[2020-12-09 15:20] LABS: Bilirubin, Total 0.3 mg/dL (0.2-1.0); Total Protein 6.7 g/dL (6.4-8.2)
== END | disposition home or self-care (01) ==
LOC: LAB 14:29
PROVIDERS: ATTEND Nurse Practitioner Family
DX: R19.7 Diarrhea, unspecified (principal)
CPT/HCPCS: 36415; 80053; 85025

== ENCOUNTER → 2021-10-10 | Outpatient (CLI) | payer MEDICARE, OTHER ==
[~2021-10-10] MED LIST changes: +FER325T PO
[2021-10-10 11:53] LABS: Basophils # (auto) 0 10 ^3/uL (0-0.2); Eosinophils # (auto) 0.1 10 ^3/uL (0-0.8); Hemoglobin 12.8 g/dL (12.2-16.2); Lymphocytes # (auto) 1.2 10 ^3/uL (0.4-5.4); Monocytes # (auto) 0.4 10 ^3/uL (0-1.3); Red Cell Distribution Width 12.3 % (11.8-14.3)
[2021-10-10 11:58] LABS: Basophils % (auto) 0.3 % (0.0-2.0); Hematocrit 36.2 % (36.0-46.0); Lymphocytes % (auto) 23.5 % (10.0-50.0); Mean Corpuscular Hgb Conc. 35.3 g/dL (32.0-36.0); Monocytes % (auto) 7.7 % (0.0-12.0); Neutrophils # (auto) 3.4 10 ^3/uL (1.6-8.6); Neutrophils % (auto) 67.5 % (37.0-80.0); Red Blood Cells 3.66 10^6/uL (4.0-5.20); White Blood Cell 5.1 10^3/uL (4.4-10.8)
[2021-10-10 13:18] LABS: Potassium 3.5 mmol/L (3.5-5.1)
[2021-10-10 13:24] LABS: Ferritin 52.3 ng/mL (10-322); Folate (Folic Acid) > 24.00 ng/mL (5.38-24)
[2021-10-10 13:31] LABS: Albumin 3.5 g/dL (3.4-5.0); BUN/Creatinine Ratio 22.7; Bilirubin, Total 0.3 mg/dL (0.2-1.0); Calcium 8.9 mg/dL (8.5-10.1); Total Protein 7.4 g/dL (6.4-8.2)
== END | disposition home or self-care (01) ==
LOC: LAB 11:24
PROVIDERS: ATTEND Internal Medicine
DX: D64.9 Anemia, unspecified (principal)
CPT/HCPCS: 36415; 80053; 82607; 82728; 82746; 83540; 83550; 83615; 85025

== ENCOUNTER → 2021-12-05 | Outpatient (CLI) | payer MEDICARE, OTHER ==
[2021-12-05 12:09] LABS: Basophils # (auto) 0 10 ^3/uL (0-0.2); Basophils % (auto) 0.5 % (0.0-2.0); Eosinophils # (auto) 0.1 10 ^3/uL (0-0.8); Eosinophils % (auto) 1.1 % (0.0-7.0); Hematocrit 37.9 % (36.0-46.0); Hemoglobin 12.6 g/dL (12.2-16.2); Lymphocytes # (auto) 1.1 10 ^3/uL (0.4-5.4); Lymphocytes % (auto) 22.8 % (10.0-50.0); Mean Corpuscular Hemoglobin 31.6 pg (28.0-32.0); Mean Corpuscular Hgb Conc. 33.3 g/dL (32.0-36.0); Mean Corpuscular Volume 94.7 fL (80.0-100.0); Monocytes # (auto) 0.4 10 ^3/uL (0-1.3); Monocytes % (auto) 8.9 % (0.0-12.0); Neutrophils # (auto) 3.2 10 ^3/uL (1.6-8.6); Neutrophils % (auto) 66.7 % (37.0-80.0); Nucleated Red Blood Cells % 0.1 %; Red Cell Distribution Width 12.1 % (11.8-14.3); White Blood Cell 4.8 10^3/uL (4.4-10.8)
[2021-12-05 12:38] LABS: Albumin 3.7 g/dL (3.4-5.0); Potassium 4.2 mmol/L (3.5-5.1)
[2021-12-05 12:42] LABS: BUN/Creatinine Ratio 30.6; Bilirubin, Total 0.4 mg/dL (0.2-1.0); Total Protein 7.5 g/dL (6.4-8.2)
== END | disposition home or self-care (01) ==
LOC: LAB 11:48
PROVIDERS: ATTEND Internal Medicine
DX: D64.9 Anemia, unspecified (principal)
CPT/HCPCS: 36415; 80053; 83615; 85025

== ENCOUNTER → 2021-12-12 | Outpatient (CLI) | payer MEDICARE ==
[2021-12-12 12:44] LABS: Eosinophils # (auto) 0 10 ^3/uL (0-0.8); Hemoglobin 12.7 g/dL (12.2-16.2); Monocytes # (auto) 0.4 10 ^3/uL (0-1.3)
[2021-12-12 12:49] LABS: Basophils # (auto) 0 10 ^3/uL (0-0.2); Basophils % (auto) 0.2 % (0.0-2.0); Hematocrit 35.5 % (36.0-46.0); Lymphocytes % (auto) 24.2 % (10.0-50.0); Mean Corpuscular Hemoglobin 35.6 pg (28.0-32.0); Mean Corpuscular Hgb Conc. 35.7 g/dL (32.0-36.0); Mean Corpuscular Volume 99.9 fL (80.0-100.0); Neutrophils # (auto) 2.6 10 ^3/uL (1.6-8.6); Neutrophils % (auto) 65.6 % (37.0-80.0); Red Blood Cells 3.56 10^6/uL (4.0-5.20); Red Cell Distribution Width 12.1 % (11.8-14.3)
[2021-12-12 12:56] LABS: Albumin 3.6 g/dL (3.4-5.0); Calcium 9.3 mg/dL (8.5-10.1); Magnesium 2.5 mg/dL (1.6-2.6); Potassium 3.8 mmol/L (3.5-5.1)
[2021-12-12 13:02] LABS: BUN/Creatinine Ratio 47.6; Bilirubin, Total 0.3 mg/dL (0.2-1.0); Total Protein 7.7 g/dL (6.4-8.2)
[2021-12-12 16:10] LABS: % Iron Saturation 18.6 % (15-50)
== END | disposition home or self-care (01) ==
LOC: LAB 11:49
PROVIDERS: ATTEND Internal Medicine
DX: D64.9 Anemia, unspecified (principal); I10 Essential (primary) hypertension; Z79.899 Other long term (current) drug therapy
CPT/HCPCS: 36415; 80053; 82306; 82728; 83540; 83550; 83615; 83735; 85025

== ENCOUNTER → 2022-03-01 | Outpatient (CLI) | payer MEDICARE, OTHER | END | disposition home or self-care (01) | LOC: LAB 10:57 | DX: R19.7 Diarrhea, unspecified (principal) | CPT/HCPCS: 82784; 83516; 86255 ==

== ENCOUNTER 2022-03-04 08:52 | Emergency (ER) | payer MEDICARE, OTHER ==
[~2022-03-04] VITALS: Ht 160 cm; Wt 60.0 kg
[2022-03-04] MEDS ORDERED: MORPHINE SULFATE INJ 2 MG/ml SYRG IV ONE (13:15)
[2022-03-04] MEDS ORDERED: ONDANSETRON HCL 4 MG/2 ML VIAL IV ONE (13:15)
[2022-03-04] MEDS ORDERED: SODIUM CHLORIDE 0.9% 1,000 ML IV ONE (13:15)
[2022-03-04 13:47] LABS: Basophils # (auto) 0 10 ^3/uL (0-0.2); Basophils % (auto) 0.3 % (0.0-2.0); Eosinophils # (auto) 0 10 ^3/uL (0-0.8); Eosinophils % (auto) 0.1 % (0.0-7.0); Hematocrit 39.5 % (36.0-46.0); Hemoglobin 14.1 g/dL (12.2-16.2); Lymphocytes # (auto) 0.7 10 ^3/uL (0.4-5.4); Lymphocytes % (auto) 7.2 % (10.0-50.0); Mean Corpuscular Hemoglobin 36.9 pg (28.0-32.0); Mean Corpuscular Hgb Conc. 35.8 g/dL (32.0-36.0); Mean Corpuscular Volume 102.9 fL (80.0-100.0); Monocytes # (auto) 0.4 10 ^3/uL (0-1.3); Monocytes % (auto) 4.1 % (0.0-12.0); Neutrophils # (auto) 8.6 10 ^3/uL (1.6-8.6); Neutrophils % (auto) 88.3 % (37.0-80.0); Nucleated Red Blood Cells % 0.1 %; Red Blood Cells 3.83 10^6/uL (4.0-5.20); Red Cell Distribution Width 12.1 % (11.8-14.3); White Blood Cell 9.8 10^3/uL (4.4-10.8)
[2022-03-04 14:00] LABS: Albumin 3.9 g/dL (3.4-5.0); Calcium 9.6 mg/dL (8.5-10.1); Magnesium 2.6 mg/dL (1.6-2.6); Potassium 4.3 mmol/L (3.5-5.1)
[2022-03-04 14:04] LABS: BUN/Creatinine Ratio 48.6; Bilirubin, Total 0.7 mg/dL (0.2-1.0); Total Protein 7.8 g/dL (6.4-8.2)
[2022-03-04] MEDS ORDERED: METOPROLOL SUCCINATE XL 50 MG TAB PO ONE (15:15)
[2022-03-04 15:38] LABS: INR 0.97 (0.9-1.15); Partial Thromboplastin Time 27.3 sec (24.6-33.4)
[2022-03-04 15:53] VITALS: BP 114/39
== END 2022-03-04 16:31 | disposition short-term general hospital (02) ==
LOC: ER 08:52 → EDBD 08:52 → ER 16:31
DX: S22.088A Other fracture of T11-T12 vertebra, initial encounter for closed fracture (principal); S00.03XA Contusion of scalp, initial encounter; I48.91 Unspecified atrial fibrillation; M47.812 Spondylosis without myelopathy or radiculopathy, cervical region; D75.89 Other specified diseases of blood and blood-forming organs; R00.8 Other abnormalities of heart beat; I10 Essential (primary) hypertension; M41.80 Other forms of scoliosis, site unspecified; E78.5 Hyperlipidemia, unspecified; K21.9 Gastro-esophageal reflux disease without esophagitis; Z90.49 Acquired absence of other specified parts of digestive tract; Z90.710 Acquired absence of both cervix and uterus; Z90.89 Acquired absence of other organs; Z79.899 Other long term (current) drug therapy; Z88.0 Allergy status to penicillin; W01.198A Fall on same level from slipping, tripping and stumbling with subsequent striking against other object, initial encounter; Y93.89 Activity, other specified; Y92.89 Other specified places as the place of occurrence of the external cause; Y99.8 Other external cause status
CPT/HCPCS: 36415; 70450; 71045; 72125; 72131; 80053; 83735; 85025; 85610; 85730; 93005; 96361; 96374; 96375; 99285; J2270; J2405; J7030

== ENCOUNTER → 2022-03-06 | Outpatient (CLI) | payer MEDICARE | END | disposition home or self-care (01) | LOC: LAB 13:30 | PROVIDERS: ATTEND Registered Nurse | DX: R19.7 Diarrhea, unspecified (principal) | CPT/HCPCS: 87045; 87177; 87427; 87493 ==

== ENCOUNTER 2023-06-05 09:58 | Inpatient (IN) | payer MEDICARE, OTHER ==
[~2023-06-05] VITALS: Ht 157.5 cm; Wt 61.4 kg
[~2023-06-05 09:58] MED LIST changes: +GABA-1254 OR; -GABA300C11 OR; -HYDR12.56 PO; +HYDR12.59 PO; -LISI20TA28 PO; +LISI20TA56 PO
[2023-06-05] MEDS: ONDANSETRON HCL 4 MG/2 ML VIAL IV ONE (10:30)
[2023-06-05] MEDS: MORPHINE SULFATE INJ 2 MG/ml SYRG IV ONE (10:30)
[2023-06-05 10:56] LABS: Basophils # (auto) 0 10 ^3/uL (0-0.2); Basophils % (auto) 0.2 % (0.0-2.0); Eosinophils # (auto) 0 10 ^3/uL (0-0.8); Eosinophils % (auto) 0.2 % (0.0-7.0); Hematocrit 40.7 % (36.0-46.0); Hemoglobin 13.4 g/dL (12.2-16.2); Lymphocytes # (auto) 0.9 10 ^3/uL (0.4-5.4); Lymphocytes % (auto) 11.4 % (10.0-50.0); Mean Corpuscular Hemoglobin 30.8 pg (28.0-32.0); Mean Corpuscular Volume 93.3 fL (80.0-100.0); Monocytes # (auto) 0.6 10 ^3/uL (0-1.3); Neutrophils # (auto) 6.6 10 ^3/uL (1.6-8.6); Neutrophils % (auto) 81.2 % (37.0-80.0); Red Blood Cells 4.36 10^6/uL (4.0-5.20); Red Cell Distribution Width 13.2 % (11.8-14.3); White Blood Cell 8.1 10^3/uL (4.4-10.8)
[2023-06-05 11:02] LABS: Chloride 101 mmol/L (98-107); Sodium 133 mmol/L (136-145)
[2023-06-05 11:03] LABS: Anion Gap 6 (5-15); Calcium 9.7 mg/dL (8.5-10.1); Carbon Dioxide 26 mmol/L (20-30)
[2023-06-05 11:08] LABS: BUN/Creatinine Ratio 27.3 (10.0-20.0); Blood Urea Nitrogen 21 mg/dL (9-23); Glucose 116 mg/dL (74-106)
[2023-06-05] MEDS ORDERED: ACETAMINOPHEN 325 MG TAB PO PRN (14:30)
[2023-06-05] MEDS: SODIUM CHLORIDE 0.9% 1,000 ML IV ONE (14:30)
[2023-06-05] MEDS ORDERED: ONDANSETRON HCL 4 MG/2 ML VIAL IV PRN (14:30)
[2023-06-05] MEDS ORDERED: ALENDRONATE SODIUM 10 MG TAB PO SCH (14:45)
[2023-06-05] MEDS ORDERED: hydrALAZINE HCL 20 MG/ML VL IV PRN (14:45)
[2023-06-05 15:20] VITALS: PULSE 74; RESP 19; O2SAT 94
[2023-06-05 17:28] VITALS: O2SAT 96
[2023-06-05 17:31] VITALS: BP 162/60; PULSE 77; RESP 15; TEMP 97.4; O2SAT 93
[2023-06-05 20:00] VITALS: O2SAT 96
[2023-06-05 22:00] VITALS: BP 121/42; PULSE 68; RESP 20; TEMP 97.8; O2SAT 95
[2023-06-05] MEDS: METOPROLOL TARTRATE 25 MG TAB PO SCH (22:00)
[2023-06-06] VITALS (7 sets, daily range): BP systolic 129–146; BP diastolic 43–71; PULSE 64–71; RESP 18–22; TEMP 97.6–99.7; O2SAT 93–95
[2023-06-06] MEDS: HYDROcodone-ACET 5/325MG TAB PO PRN (04:13)
[2023-06-06 06:35] LABS: Basophils # (auto) 0 10 ^3/uL (0-0.2); Basophils % (auto) 0.3 % (0.0-2.0); Eosinophils # (auto) 0.1 10 ^3/uL (0-0.8); Hematocrit 40.4 % (36.0-46.0); Hemoglobin 13.1 g/dL (12.2-16.2); Lymphocytes # (auto) 1.1 10 ^3/uL (0.4-5.4); Mean Corpuscular Hemoglobin 30.6 pg (28.0-32.0); Mean Corpuscular Hgb Conc. 32.5 g/dL (32.0-36.0); Mean Corpuscular Volume 94.2 fL (80.0-100.0); Monocytes # (auto) 0.7 10 ^3/uL (0-1.3); Monocytes % (auto) 9.3 % (0.0-12.0); Neutrophils # (auto) 5.3 10 ^3/uL (1.6-8.6); Neutrophils % (auto) 73.4 % (37.0-80.0); Red Blood Cells 4.29 10^6/uL (4.0-5.20); Red Cell Distribution Width 13.2 % (11.8-14.3); White Blood Cell 7.3 10^3/uL (4.4-10.8)
[2023-06-06 07:01] LABS: Alanine Aminotransferase 19 U/L (7-40); Albumin 3.9 g/dL (3.2-4.8); Alkaline Phosphatase 60 U/L (46-116); Anion Gap 5 (5-15); Aspartate Aminotransferase 25 U/L (13-40); BUN/Creatinine Ratio 21.4 (10.0-20.0); Bilirubin, Total 0.5 mg/dL (0.2-1.0); Blood Urea Nitrogen 15 mg/dL (9-23); Calcium 9.5 mg/dL (8.5-10.1); Carbon Dioxide 27 mmol/L (20-30); Chloride 102 mmol/L (98-107); Potassium 4.2 mmol/L (3.5-5.1); Sodium 134 mmol/L (136-145); Total Protein 6.7 g/dL (5.7-8.2)
[2023-06-06 07:09] LABS: Glucose 103 mg/dL (74-106)
[2023-06-06] MEDS: LISINOPRIL 20 MG TAB PO SCH (10:00)
[2023-06-06] MEDS: hydroCHLOROthiazide 25 MG TAB PO SCH (10:01)
[2023-06-06] MEDS: PANTOPRAZOLE 40 MG TAB PO SCH (10:02)
[2023-06-06] MEDS: ENOXAPARIN SOD 40 MG/0.4 ML SYRINGE SC SCH (10:03)
[2023-06-06] MEDS: OMNIPAQUE 12mg/ml 500ml ORAL SOLUTION PO ONE (13:30)
[2023-06-06] MEDS: IOHEXOL 300 MG/ML 100ML BOTTLE IJ ONE (15:54)
[2023-06-06] MEDS: DOCUSATE SOD 100 MG CAP PO PRN (21:15)
[2023-06-07] VITALS (7 sets, daily range): BP systolic 130–141; BP diastolic 52–61; PULSE 67–87; RESP 16–20; TEMP 97.9–98.4; O2SAT 90–97
[2023-06-07 08:07] LABS: AFP Serum Tumor Marker 7.7 ng/mL (0.0-8.7); Carbohydrate Antigen 19-9 9 U/mL (0-35)
[2023-06-07 10:06] LABS: CA 27.29 <9.0 U/mL (0.0-38.6)
[2023-06-07] MEDS ORDERED: LISI10TA34 PO (10:22)
[2023-06-07] MEDS ORDERED: ACET300T51 PO (10:28)
[2023-06-07] MEDS ORDERED: DICL1GEL59 TOP (10:28)
[2023-06-07] MEDS ORDERED: BACL10TA PO (10:28)
[2023-06-07] MEDS ORDERED: HYDR25TA87 PO (10:28)
[2023-06-07] MEDS ORDERED: GADOTERATE MEG 10 MMOL/20ml INJ (0.5MMOL/ml) IV ONE (10:35)
[2023-06-07 11:29] LABS: Urine Bacteria MANY /hpf (None Seen); Urine Blood Negative /uL (Negative); Urine Clarity HAZY (Clear); Urine Color Colorless (Yellow); Urine Protein, UAD TRACE (Negative); Urine Specific Gravity 1.029 (1.001-1.035); Urine Urobilinogen Normal (Negative); Urine WBC 1 /hpf (0 - 5); Urine pH 5.5 (5.0-8.0)
[2023-06-08] MEDS: MORPHINE SULFATE INJ 2 MG/ml SYRG IV PRN (00:49)
[2023-06-08 08:00] VITALS: PULSE 87; RESP 16; O2SAT 95
[2023-06-08] MEDS: levoFLOXacin 250 MG TAB PO ONE ×2 (08:49→08:51)
[2023-06-08 09:00] VITALS: BP 136/55; PULSE 65; RESP 18; TEMP 97.7; O2SAT 94
[2023-06-08] MEDS ORDERED: LEVO500T91 PO (11:30)
[2023-06-08 12:45] VITALS: BP_SYST 116; BP_SYST 140; BP_DIAS 41; BP_DIAS 65; PULSE 65; RESP 18; TEMP 36.5; O2SAT 93
[2023-06-08 16:37] VITALS: BP 115/53; PULSE 71; RESP 18; TEMP 98.4; O2SAT 92
[2023-06-09] MEDS ORDERED: levoFLOXacin 250 MG TAB PO SCH (10:00)
== END 2023-06-08 16:50 | disposition home health service (06) | DRG 543 ==
LOC: ER 09:58 → EDBD 09:58 → CENTRAL 14:24 → OVERFLOW 14:24 → CENTRAL 16:57
PROVIDERS: ADMIT Nurse Practitioner Family; ATTEND Internal Medicine
DX: M48.54XA Collapsed vertebra, not elsewhere classified, thoracic region, initial encounter for fracture (principal); I50.32 Chronic diastolic (congestive) heart failure; N30.00 Acute cystitis without hematuria; M81.0 Age-related osteoporosis without current pathological fracture; M17.0 Bilateral primary osteoarthritis of knee; W18.30XA Fall on same level, unspecified, initial encounter; K21.9 Gastro-esophageal reflux disease without esophagitis; R91.8 Other nonspecific abnormal finding of lung field; I11.0 Hypertensive heart disease with heart failure; Z99.3 Dependence on wheelchair; Y92.009 Unspecified place in unspecified non-institutional (private) residence as the place of occurrence of the external cause; Z88.0 Allergy status to penicillin; Z90.49 Acquired absence of other specified parts of digestive tract; Z90.710 Acquired absence of both cervix and uterus
CPT/HCPCS: 36415; 71260; 72131; 74176; 74177; 74183; 80048; 80053; 81001; 82105; 82306; 82378; 83615; 84439; 84443; 85025; 86300; 86301; 97110; 97116; 97163; 97530; G0378; J2405

== ENCOUNTER → 2023-10-18 | Outpatient (CLI) | payer MEDICARE ==
[~2023-10-18] MED LIST changes: +ACET300T51 PO; -ACET30TA15; +BACL10TA PO; -CEPH500T PO; +DICL1GEL59 TOP; -HYDR25TA5 PO; +HYDR25TA87 PO; +LEVO500T91 PO; +LISI10TA34 PO; -LISI20TA56 PO; -PANT40TA2 PO
[2023-10-18 09:36] LABS: Basophils # (auto) 0 10 ^3/uL (0-0.2); Basophils % (auto) 0.3 % (0.0-2.0); Eosinophils # (auto) 0 10 ^3/uL (0-0.8); Eosinophils % (auto) 0.8 % (0.0-7.0); Hematocrit 39.9 % (36.0-46.0); Hemoglobin 13.5 g/dL (12.2-16.2); Lymphocytes # (auto) 1.6 10 ^3/uL (0.4-5.4); Lymphocytes % (auto) 25.9 % (10.0-50.0); Mean Corpuscular Hemoglobin 31.6 pg (28.0-32.0); Mean Corpuscular Hgb Conc. 33.9 g/dL (32.0-36.0); Mean Corpuscular Volume 93.2 fL (80.0-100.0); Monocytes # (auto) 0.4 10 ^3/uL (0-1.3); Monocytes % (auto) 6.8 % (0.0-12.0); Neutrophils # (auto) 4.1 10 ^3/uL (1.6-8.6); Neutrophils % (auto) 66.2 % (37.0-80.0); Red Blood Cells 4.28 10^6/uL (4.0-5.20); Red Cell Distribution Width 12.2 % (11.8-14.3); White Blood Cell 6.1 10^3/uL (4.4-10.8)
[2023-10-18 10:17] LABS: Alanine Aminotransferase 12 U/L (7-40); Albumin 4.4 g/dL (3.2-4.8); Alkaline Phosphatase 61 U/L (46-116); Anion Gap 4 (5-15); Aspartate Aminotransferase 8 U/L (13-40); BUN/Creatinine Ratio 22.1 (10.0-20.0); Bilirubin, Total 0.4 mg/dL (0.2-1.0); Blood Urea Nitrogen 17 mg/dL (9-23); Calcium 9.7 mg/dL (8.5-10.1); Carbon Dioxide 28 mmol/L (20-30); Chloride 102 mmol/L (98-107); Cholesterol 214 mg/dL (< 200); Glucose 95 mg/dL (74-106); HDL Cholesterol 76 mg/dL (40-59); LDL Cholesterol 132 mg/dL (< 100); Potassium 4.5 mmol/L (3.5-5.1); Sodium 134 mmol/L (136-145); Total Protein 7.4 g/dL (5.7-8.2); Triglycerides 101 mg/dL (< 150)
== END | disposition home or self-care (01) ==
LOC: LAB 09:09
PROVIDERS: ATTEND Nurse Practitioner
DX: I10 Essential (primary) hypertension (principal); E78.5 Hyperlipidemia, unspecified; E03.9 Hypothyroidism, unspecified
CPT/HCPCS: 36415; 80053; 80061; 84443; 85025

== ENCOUNTER → 2024-05-22 | Outpatient (CLI) | payer MEDICARE ==
[2024-05-22 09:47] LABS: Basophils # (auto) 0 10 ^3/uL (0-0.2); Basophils % (auto) 0.3 % (0.0-2.0); Eosinophils # (auto) 0.1 10 ^3/uL (0-0.8); Eosinophils % (auto) 1.1 % (0.0-7.0); Hematocrit 40.5 % (36.0-46.0); Hemoglobin 13.7 g/dL (12.2-16.2); Lymphocytes # (auto) 1.3 10 ^3/uL (0.4-5.4); Lymphocytes % (auto) 20.3 % (10.0-50.0); Mean Corpuscular Hemoglobin 31.8 pg (28.0-32.0); Mean Corpuscular Hgb Conc. 33.7 g/dL (32.0-36.0); Mean Corpuscular Volume 94.3 fL (80.0-100.0); Monocytes # (auto) 0.4 10 ^3/uL (0-1.3); Monocytes % (auto) 6.3 % (0.0-12.0); Neutrophils # (auto) 4.6 10 ^3/uL (1.6-8.6); Platelet Count (auto) 247 10^3/uL (140-450); Red Cell Distribution Width 13.3 % (11.8-14.3); White Blood Cell 6.4 10^3/uL (4.4-10.8)
[2024-05-22 10:37] LABS: Alanine Aminotransferase 15 U/L (7-40); Alkaline Phosphatase 62 U/L (46-116); Anion Gap 7 (5-15); BUN/Creatinine Ratio 22.4 (10.0-20.0); Bilirubin, Total 0.6 mg/dL (0.2-1.0); Blood Urea Nitrogen 19 mg/dL (9-23); Calcium 10.3 mg/dL (8.7-10.4); Carbon Dioxide 28 mmol/L (20-31); Chloride 101 mmol/L (98-107); Potassium 4.6 mmol/L (3.5-5.1); Sodium 136 mmol/L (136-145); Total Protein 7.6 g/dL (5.7-8.2); Triglycerides 90 mg/dL (< 150)
[2024-05-22 10:41] LABS: Albumin 4.9 g/dL (3.2-4.8); Aspartate Aminotransferase 11 U/L (13-40); Cholesterol 223 mg/dL (< 200); Glucose 97 mg/dL (74-106); HDL Cholesterol 90 mg/dL (40-59); LDL Cholesterol 127 mg/dL (< 100)
== END | disposition home or self-care (01) ==
LOC: LAB 09:30
PROVIDERS: ATTEND Nurse Practitioner Family
DX: E78.5 Hyperlipidemia, unspecified (principal)
CPT/HCPCS: 36415; 80053; 80061; 84443; 85025

== ENCOUNTER → 2024-06-26 | Outpatient (CLI) | payer MEDICARE, OTHER | END | disposition home or self-care (01) | LOC: LAB 15:59 | PROVIDERS: ATTEND Nurse Practitioner Family | DX: E04.9 Nontoxic goiter, unspecified (principal) | CPT/HCPCS: 36415; 84439; 84443 ==

== ENCOUNTER 2024-11-19 18:20 | Inpatient (IN) | payer MEDICARE, OTHER ==
[~2024-11-19] VITALS: Ht 147.3 cm; Wt 64.7 kg
[2024-11-19 18:45] VITALS: PULSE 72; RESP 15; O2SAT 95
--- NOTE | 2024-11-19 18:50 | ED.PDOC ---
Musculoskeletal HPI Comments BUSICK: b/l LE swelling redness on doxy, itchy. HPI: Poor Historian. 84-year-old female brought into the ED for evaluation of bilateral lower extremity swelling with redness. Patient also has some slight nonspecific occasional itchiness. Patient is already on doxycycline without any improvement. She says it is getting worse. Denies any other acute symptoms. Past Medical History: Lasix, HCTZ, hypertension, baclofen, Benadryl, patient is DNR Past Surgical History: REVIEW OF SYSTEMS: CONSTITUTIONAL: Denies acute: fever, diaphoresis, chills, HEAD: Denies acute: headache, photophobia Eyes: Denies acute: Double vision, vision loss, eye pain, eye discharge. EARS: Denies acute: tinnitus, hearing loss, ear discharge, ear pain, THROAT: Denies acute: sore throat, swelling, difficulty swallowing , pain with sw allowing, change in voice. NECK: Denies acute: neck pain, neck swelling, stiff neck. HEART: Denies acute : chest pain, palpitations, LUNGS: Denies acute: SOB, wheezing, cough, hemoptysis ABDOMEN: Denies acute: abdominal pain, Nausea, Vomiting, diarrhea, melena , hematemesis, hematochezia SKIN: Denies acute: , , , . EXTREMITIES: Denies acute: calf pain, numbness, tingling, weakness, denies pain in extremity. Denies acute: Low back pain. Neuro: Denies acute: focal neurological deficit, motor or sensory focal neurological deficit, tremors, seizure like activity, confusion, dizziness, change in mental status, loss of bowel or bladder function, cauda equina like symptoms. : Denies acute: dysuria, hematuria, flank pain, increase in urinary frequency. PSYCH: Denies acute: hallucination, suicidal ideation, homicidal ideation. FEMALE: Denies acute: abnormal vaginal bleeding, foul odor, unusual discharge. PHYSICAL EXAM: General: ----no----acute distress, awake and alert. Head: normocephalic, atraumatic. Neck: supple, trachea is midline, no swelling. Throat: Normal phonation. Eyes:, no erythema, no purulent discharge, no proptosis, no icterus. Heart: regular rate, regular rhythm, no significant murmur appreciated. Lungs: no apparent respiratory distress, Able to speak in full sentences. No wheezing, no rhonchi, no crackles. No stridors Clear to auscultation bilaterally. Abdomen: non tender to palpation, non distended, soft, no guarding, no rebound, + bowel sounds. Neuro: Awake, Alert, oriented to name, self, situation, follows commands GCS=15. Speech is normal. Skin: no petechia, no purpura, no cyanosis, non-pale, not jaundice. Lower extremities: --2/4 bilateral- Pitting edema no deformity, no focal swelling, no calf TTP. Noted bilateral erythema of of the ankles. Makes eye contact. moves all four extremities. Face: no apparent facial droop. Pedal pulses are palpable. ED COURSE: DISCLAIMER: This medical document was created using an electronic medical record system with voice recognition software and computerized dictation system. Although this document has been carefully reviewed, there might still be some phonetic and typographical errors. Occasional wrong-word or "sound-alike" substitutions may have occurred due to the inherent limitations of voice recognition software. These areas are purely typographical due to imperfections of the software programs and do not reflect any compromise in the patient's medical care. Please read the chart carefully and recognize, using context, where these substitutions have occurred. Chief Complaint: Lower Extremity Time Seen by MD: 18:32 Primary Care Provider: NONE Reviewed Notes: Allergies Allergies: Coded Allergies: Penicillins (Verified Allergy, Unknown, 10/19/15) Home Meds Active Scripts Levofloxacin Hemihydrate (LEVAQUIN 500 MG) 500 Mg Tab, 500 MG PO DAILY for 5 Days, #5 TAB Prov:ABRAN KENDALL MD 06/08/23 Ferrous Sulfate (FERROUS SULFATE) 325 Mg Tb, 1 TAB PO BID, #60 TAB Prov:JULIANE ARIAS MD 12/14/20 Metoprolol Tartrate (Lopressor) 25 Mg Tb, 12.5 MG PO BID for 30 Days, #30 TAB Metoprolol 12.5 mg po bid Prov:BIBI FLAHERTY MD 10/01/20 Reported Medications Acetaminophen W/ Codeine (Acetaminophen/Codeine) 1 Tab Tab, 1 TAB PO DAILY Acetaminophen/Codeine 300/30 Mg 06/07/23 Diclofenac Sodium (Topical) (Voltaren Arthritis Pain) 1 % Gel, 1 % TOP BID PRN Apply 2 grams to affected area 2 times a day as needed 06/07/23 Hydralazine HCl (Hydralazine HCl) 25 Mg Tab, 1 TAB PO QID 06/07/23 Baclofen (Baclofen) 10 Mg Tab, 5 MG PO BID PRN 06/07/23 Lisinopril (Lisinopril) 10 Mg Tab, 1 TAB PO DAILY 06/07/23 Pantoprazole Sodium Sesquihydr (Pantoprazole Sodium) 40 Mg Tab, 1 TAB PO DAILYPRN 09/28/20 Alendronate Sodium (Alendronate Sodium) 70 Mg Tab, 1 TAB PO QWEEKLY 09/28/20 Tramadol Hcl (Tramadol Hcl) 50 Mg Tab, 50 MG PO PRN, TAB 10/19/15 Gabapentin (NEURONTIN CAPSULE) 300 Mg Cp, 300 MG OR TID, CP 10/19/15 Hydrochlorothiazide (Hydrochlorothiazide) 12.5 Mg Cap, 1 CAP PO DAILY, #30 CAP 5 Refills 10/19/15 Information Source: Patient, Emergency Med Personnel Past Medical History PAST MEDICAL HISTORY: Arthritis, GERD, High Lipids, HTN Surgical History: Cholecystectomy, Hernia Repair, Hysterectomy, Tonsillectomy INK PRINTER History: No Pertinent INK PRINTER History Family History Family History: Unobtainable Social History Smoker: Non-Smoker Alcohol: Denies ETOH Use Drugs: Denies Drug Use Lives In: Home Was a procedure done? Was a procedure done?: No Differential Diagnosis EXT Differential Diagnosis: Cellulitis, Deep Vein Thrombosis, Compartment Syndrome, Sprain, Laceration, Contusion, Neurovascular injury, Arthritis, Other X-Ray, Labs, Meds, VS Vital Signs Date Time Temp Pulse Resp B/P (MAP) Pulse Ox O2 Delivery O2 Flow Rate FiO2 11/19/24 19:45 72 15 95 Room Air* 0 11/19/24 19:45 98.1 75 16 166/66 (99) 98 98.1 11/19/24 18:45 72 15 95 Room Air* 0 11/19/24 18:45 97.9 72 15 166/82 (110) 95 97.9 11/19/24 18:32 98.6 68 16 130/65 (86) 97 98.6 11/19/24 18:21 68 Lab Test 11/19/24 18:48 Range/Units White Blood Count 8.0 4.4-10.8 10^3/uL Red Blood Count 4.70 4.0-5.20 10^6/uL Hemoglobin 14.3 12.2-16.2 g/dL Hematocrit 43.0 36.0-46.0 % Mean Corpuscular Volume 91.4 80.0-100.0 fL Mean Corpuscular Hemoglobin 30.4 28.0-32.0 pg Mean Corpuscular Hemoglobin Concent 33.3 32.0-36.0 g/dL Red Cell Distribution Width 13.9 11.8-14.3 % Platelet Count 265 140-450 10^3/uL Mean Platelet Volume 8.7 6.9-10.8 fL Neutrophils (%) (Auto) 70.6 37.0-80.0 % Lymphocytes (%) (Auto) 14.5 10.0-50.0 % Monocytes (%) (Auto) 8.0 0.0-12.0 % Eosinophils (%) (Auto) 6.5 0.0-7.0 % Basophils (%) (Auto) 0.4 0.0-2.0 % Neutrophils # (Auto) 5.6 1.6-8.6 10 ^3/uL Lymphocytes # (Auto) 1.2 0.4-5.4 10 ^3/uL Monocytes # (Auto) 0.6 0-1.3 10 ^3/uL Eosinophils # (Auto) 0.5 0-0.8 10 ^3/uL Basophils # (Auto) 0 0-0.2 10 ^3/uL Nucleated Red Blood Cells 0.1 % Erythrocyte Sedimentation Rate 33 H 0-20 mm/hr Sodium Level 136 136-145 mmol/L Potassium Level 3.9 3.5-5.1 mmol/L Chloride Level 97 L 98-107 mmol/L Carbon Dioxide Level 30 20-31 mmol/L Anion Gap 9 5-15 Blood Urea Nitrogen 29 H 9-23 mg/dL Creatinine 1.25 H 0.550-1.02 mg/dL Glomerular Filtration Rate Calc 42 >90 mL/min BUN/Creatinine Ratio 23.2 H 10.0-20.0 Serum Glucose 185 H 74-106 mg/dL Hemoglobin A1c 5.8 H <5.7 % A1C Lactic Acid Level 1.6 0.4-2.0 mmol/L Calcium Level 9.6 8.7-10.4 mg/dL Total Bilirubin 0.6 0.2-1.0 mg/dL Aspartate Amino Transferase (AST) 13 13-40 U/L Alanine Aminotransferase (ALT) 11 7-40 U/L Alkaline Phosphatase 68 46-116 U/L Troponin I High Sensitivity 3 L </=34 ng/L C-Reactive Protein High Sensitivity 2.05 H <1.0 mg/dL B-Type Natriuretic Peptide 138.53 0-100 pg/mL Total Protein 7.6 5.7-8.2 g/dL Albumin 4.7 3.2-4.8 g/dL Vitamin B12 Level 888 211-911 pg/mL Vitamin D 25-Hydroxy 40.4 30.0-100 ng/mL Folic Acid 47.32 >5.38 ng/mL Hepatitis B Surface Antigen Negative Negative Hepatitis C Antibody Negative Negative Microbiology Date/Time Source Procedure Growth Status 11/19/24 18:48 Blood Blood Culture - Preliminary NO GROWTH AFTER 48 HOURS OF INCUBATION. Resulted 11/19/24 18:35 Blood Blood Culture - Preliminary NO GROWTH AFTER 48 HOURS OF INCUBATION. Resulted [place] [id number] Ph: [phone] DIAGNOSTIC IMAGING Diagnostic Imaging Report : [id number] Signed PATIENT: MELISSA STACY ACCT: [id number] UNIT: [id number] : 1940 LOC: ER ROOM / BED: / AGE / SEX: 84 / F ADM STATUS: REG ER SERVICE 31 ORDERING PHYSICIAN: MIGUEL NICOLAS DO PROCEDURE(s): BLDVT - BiLat Lower DVT REASON: redness, swelling ORDER NUMBER(s): [id number], ACCESSION NUMBER(s): [id number] BILATERAL LOWER EXTREMITY VENOUS DUPLEX REASON FOR EXAMINATION: Bilateral lower extremity pain and edema. COMPARISON: None TECHNIQUE: Using real-time freeze-frame technique with a high-frequency transducer, multiple longitudinal and transverse sections were obtained. Simultaneous color flow and spectral Doppler imaging was performed. FINDINGS: There is good visualization of the deep venous system with no intraluminal filling defects identified. Normal venous compressibility is seen and there is flow augmentation. Color flow Doppler imaging is unremarkable. IMPRESSION: NO EVIDENCE OF DEEP VENOUS THROMBOSIS. ATED BY: KENDALL BELLO MD DICTATED DATE/TIME: 11/19/241956 SIGNED BY: KENDALL BELLO MD SIGNED DATE/TIME: 11/19/241956 CC: [place] [id number] Ph: [phone] DIAGNOSTIC IMAGING Diagnostic Imaging Report : [id number] Signed PATIENT: MELISSA STACY ACCT: [id number] UNIT: [id number] : 1940 LOC: OVERFLOW ROOM / BED: [facility] / A AGE / SEX: 84 / F ADM STATUS: ADM IN SERVICE 25 ORDERING PHYSICIAN: SAIMA BOYCE RESIDENT PROCEDURE(s): CXR1 - CHEST XRAY 1 VIEW REASON: ?CHF/PNA ORDER NUMBER(s): [id number], ACCESSION NUMBER(s): [id number] CHEST RADIOGRAPH Indication: CHF/PNA Technique: Single frontal view of the chest was obtained Comparison: CXRP on DOS: 03/04/22, EKG on DOS: 03/04/22, EKG on DOS: 03/04/22 FINDINGS: Lines and Tubes: None Lungs: No focal consolidation. Pleura: No effusion. No pneumothorax. Cardiomediastinal contours: Unremarkable Bones: No acute osseous abnormality. IMPRESSION: 1. Patient is rotated right. 2. No acute cardiopulmonary disease. ATED BY: KIMBERLI RANKIN Jr., DO DICTATED DATE/TIME: 11/19/242201 SIGNED BY: KIMBERLI RANKIN Jr., DO SIGNED DATE/TIME: 11/19/242201 CC: Time of 1ST Reevaluation: 00:00 Reevaluation 1ST: N/A Patient Education/Counseling: Diagnosis, Treatment Family Education/Counseling: Other Comments MDM: patient presented with the above HPI.---cellulitis redness of extremity---workup was initiated. patient was found with the above mentioned diagnosis. the following medications were ordered: please refer to order lists of meds and tests obtained by myself Dr. Nicolas. Patient ED course and VS have been stabilized. Patient has been reassessed in the ED and remained in a stable condition. Pertinent incidental findings were discussed with the patient and/or family. Patient/family voices understanding and is agreeable with plan. Patient has been observed in the ED adequate length of time to insure improvement/stability. Escalation of care considered: Consideration of escalation to observation or admission Patient was ADMITTED to the medicine team for further evaluation and treatment of their presentation. All the reports of any imaging studies that were ordered by myself were reviewed by myself. Sepsis Sepsis Reasesment Focused Exam Orders: Laboratory Tests 11/19/24 18:48: Lactic Acid Level 1.6 Departure 1 Departure Time of Disposition: 19:03 Impression: Primary Impression: Cellulitis, leg Additional Impression: Pruritus Disposition: 09 ADMITTED INPATIENT Admit to: Tele Condition: Guarded Discharged With: Self Critical Care Note Critical Care Time?: No MIGUEL NICOLAS DO Nov 19, 2024 18:50
[2024-11-19] MEDS: methylPREDNISolone SOD SUCC 125 MG/2 ML VL IV ONE (18:52)
[2024-11-19 19:07] LABS: Hematocrit 43.0 % (36.0-46.0); Hemoglobin 14.3 g/dL (12.2-16.2); Mean Corpuscular Hemoglobin 30.4 pg (28.0-32.0); Mean Corpuscular Volume 91.4 fL (80.0-100.0); Nucleated Red Blood Cells % 0.1 %
[2024-11-19 19:24] LABS: Alanine Aminotransferase 11 U/L (7-40); Albumin 4.7 g/dL (3.2-4.8); Alkaline Phosphatase 68 U/L (46-116); Anion Gap 9 (5-15); BUN/Creatinine Ratio 23.2 (10.0-20.0); Bilirubin, Total 0.6 mg/dL (0.2-1.0); Calcium 9.6 mg/dL (8.7-10.4); Carbon Dioxide 30 mmol/L (20-31); Potassium 3.9 mmol/L (3.5-5.1); Sodium 136 mmol/L (136-145); Total Protein 7.6 g/dL (5.7-8.2)
[2024-11-19 19:29] LABS: Blood Urea Nitrogen 29 mg/dL (9-23); Chloride 97 mmol/L (98-107); Glucose 185 mg/dL (74-106)
[2024-11-19 19:45] VITALS: PULSE 72; RESP 15; O2SAT 95
--- NOTE | 2024-11-19 19:59 | DVH ---
BILATERAL LOWER EXTREMITY VENOUS DUPLEX REASON FOR EXAMINATION: Bilateral lower extremity pain and edema. COMPARISON: None TECHNIQUE: Using real-time freeze-frame technique with a high-frequency transducer, multiple longitu dinal and transverse sections were obtained. Simultaneous color flow and spectral Doppler imaging wa s performed. FINDINGS: There is good visualization of the deep venous system with no intraluminal filling defects identified. Normal venous compressibility is seen and there is flow augmentation. Color flow Doppler imaging is unremarkable. IMPRESSION: NO EVIDENCE OF DEEP VENOUS THROMBOSIS.
[2024-11-19] MEDS: CLINDAMYCIN 600MG IV 50 ML IV ONE (20:15)
--- NOTE | 2024-11-19 21:23 | DVHHP2 ---
History of Present Illness History of Present Illness Patient is 84 years old female brought in from [facility] with past medical history of hypertension, hyperlipidemia, arthritis, GERD with the complaint of bilateral leg swelling and redness. As per patient she has been having bilateral leg swelling for almost more then 1 week. But she noticed bilateral leg redness on last Sunday following which she went to see her primary care physician and primary care doctor prescribed her antibiotic and other medication assuming she has infection in her leg. But as per patient her redness has gotten worse and spreading to her left arm and upper chest. Patient described redness are itchy but no pain. Patient denied any chest pain, shortness of breath, denied taking new medication before redness of the legs started, denied diarrhea, dysarthria, change in vision. Initial lab workup revealed ESR 33, CRP 2.05, serum creatinine 1.25, GFR 42, BNP 138, sugar 185. Doppler study of the lower extremity negative for DVT. Past Medical History hypertension, hyperlipidemia, arthritis, GERD Past Social History Denies smoking/alcoholism/drug abuse Review of Systems Review of Systems Allergy- PCN Patient was seen today at the bedside. Cardiovascular- deny acute chest pain or shortness of breath or cough or palpitation Respiratory denies cough or short of breath or wheezing Gastrointestinal- denies any rectal bleeding, nausea or vomiting Neurological- denies acute dysarthria, dysphagia, change in vision Psychiatry- denies depression or SI or HI Skin- denies acute rash or purpura Allergies: Coded Allergies: Penicillins (Verified Allergy, Unknown, 10/19/15) Exam Vital Signs Vital Signs Date Time Temp Pulse Resp B/P (MAP) Pulse Ox O2 Delivery O2 Flow Rate FiO2 11/19/24 18:45 72 15 95 Room Air* 0 21 11/19/24 18:45 97.9 166/82 (110) 97.9 Exam General examination- awake, alert, conversive HEENT- PEERLA, no acute nasal discharge Cardiovascular- S1-S2 audible, rate and rhythm regular, no murmur Respiratory- CTAB, no wheeze or rhonchi Gastrointestinal-nontender, bowel sound+. Nondistended Musculoskeletal-no acute joint swelling or tenderness or redness Lower extremity- bilateral leg swelling++, redness++, tender to touch++, bilateral arterial dorsalis pedis palpable++, Neurological- cranial nerves intact, no acute dysarthria or dysphagia Psychiatry- denies depression or SI or HI Skin- no acute rash or purpura Labs/Xrays Labs Test 11/19/24 18:48 Range/Units White Blood Count 8.0 4.4-10.8 10^3/uL Red Blood Count 4.70 4.0-5.20 10^6/uL Hemoglobin 14.3 12.2-16.2 g/dL Hematocrit 43.0 36.0-46.0 % Mean Corpuscular Volume 91.4 80.0-100.0 fL Mean Corpuscular Hemoglobin 30.4 28.0-32.0 pg Mean Corpuscular Hemoglobin Concent 33.3 32.0-36.0 g/dL Red Cell Distribution Width 13.9 11.8-14.3 % Platelet Count 265 140-450 10^3/uL Mean Platelet Volume 8.7 6.9-10.8 fL Neutrophils (%) (Auto) 70.6 37.0-80.0 % Lymphocytes (%) (Auto) 14.5 10.0-50.0 % Monocytes (%) (Auto) 8.0 0.0-12.0 % Eosinophils (%) (Auto) 6.5 0.0-7.0 % Basophils (%) (Auto) 0.4 0.0-2.0 % Neutrophils # (Auto) 5.6 1.6-8.6 10 ^3/uL Lymphocytes # (Auto) 1.2 0.4-5.4 10 ^3/uL Monocytes # (Auto) 0.6 0-1.3 10 ^3/uL Eosinophils # (Auto) 0.5 0-0.8 10 ^3/uL Basophils # (Auto) 0 0-0.2 10 ^3/uL Nucleated Red Blood Cells 0.1 % Erythrocyte Sedimentation Rate 33 H 0-20 mm/hr Sodium Level 136 136-145 mmol/L Potassium Level 3.9 3.5-5.1 mmol/L Chloride Level 97 L 98-107 mmol/L Carbon Dioxide Level 30 20-31 mmol/L Anion Gap 9 5-15 Blood Urea Nitrogen 29 H 9-23 mg/dL Creatinine 1.25 H 0.550-1.02 mg/dL Glomerular Filtration Rate Calc 42 >90 mL/min BUN/Creatinine Ratio 23.2 H 10.0-20.0 Serum Glucose 185 H 74-106 mg/dL Lactic Acid Level 1.6 0.4-2.0 mmol/L Calcium Level 9.6 8.7-10.4 mg/dL Total Bilirubin 0.6 0.2-1.0 mg/dL Aspartate Amino Transferase (AST) 13 13-40 U/L Alanine Aminotransferase (ALT) 11 7-40 U/L Alkaline Phosphatase 68 46-116 U/L C-Reactive Protein High Sensitivity 2.05 H <1.0 mg/dL B-Type Natriuretic Peptide 138.53 0-100 pg/mL Total Protein 7.6 5.7-8.2 g/dL Albumin 4.7 3.2-4.8 g/dL SEPSIS Sepsis Screen Date sepsis recognized/suspect: Nov 19, 2024 Time Sepsis recognized/suspect: 1902 Recent Procedure: No On Antibiotic Therapy: Yes Respiratory Rate >20: No Heart Rate >90: No Temp<36 C (96.8 F) or >38.3 C: No SBP <90 or MAP <65 mmHG: No New Acute Mental Status Change: No Is the patient on CPAP, BIPAP,: No Physician Orders [employer] (11/19/24 ) Bilat Lower Dvt (11/19/24 18:32) Electrocardigram (11/19/24 18:36) Vital Signs Date Time Temp Pulse Resp B/P (MAP) Pulse Ox O2 Delivery O2 Flow Rate FiO2 11/19/24 18:45 72 15 95 Room Air* 0 21 11/19/24 18:45 97.9 72 15 166/82 (110) 95 97.9 11/19/24 18:32 98.6 68 16 130/65 (86) 97 98.6 11/19/24 18:21 68 Laboratory Tests Test 11/19/24 18:48 Lactic Acid Level 1.6 mmol/L (0.4-2.0) White Blood Count 8.0 10^3/uL (4.4-10.8) Medications Medications Dose Ordered Sig/Russell Route Start Time Stop Time Status Last Admin Dose Admin Clindamycin Phosphate 50 ml @ 50 mls/hr ONCE ONCE IV 11/19/24 19:15 11/19/24 20:14 DC 11/19/24 20:15 50 MLS/HR Methylprednisolone Sodium Succinate 125 mg ONCE ONCE IV 11/19/24 18:45 11/19/24 18:46 DC 11/19/24 18:52 125 MG Assessment/Plan Assessment/Plan Assessment and plan #Bilateral lower extremity swelling and redness likely due to acute cellulitis, rule out DVT/allergic reaction/CHF -ESR 33, CRP 2.05 -BNP 138 -Doppler study of the lower extremity negative for DVT -continue clindamycin IV as prescribed -pending blood culture -continue IV normal saline as prescribed # JORDY likely due to VMN -avoid dehydration and nephrotoxic drugs -continue IV normal saline as prescribed #Hypertension -continue lisinopril 10 mg p.o. daily -metoprolol 12.5 mg p.o. b.i.d. -continue hydrochlorothiazide 12.5 mg p.o. daily -monitor blood pressure #PreDM -BPN2A-5.8 -low carb diet #Hyperlipidemia -continue atorvastatin 40 mg p.o. q.h.s. #Arthritis -continue Tylenol p.r.n. # GERD -continue pantoprazole 40 mg p.o. daily Diet-cardiac diet Goals of care, Code status DNR ; discussed with >15 minutes PUD prophylaxis: Pantoprazole DVT prophylaxis: Lovenox Plan discussed with Dr. Bear , nursing staff, Total time spent on patient evaluation, chart review, assessment and plan, discussion discussion >35 minutes Plan discussed with: Patient, Other (RN) Date of Service: Nov 19, 2024 Billing Provider: ABRAN BEAR MD Common Visit Codes: [id number] INP/OBS CARE (HIGH) Secondary Visit Codes: [id number] CARE PLAN 30 MINUTES SAIMA BOYCE RESIDENT Nov 19, 2024 21:23
[2024-11-19] MEDS ORDERED: ACETAMINOPHEN 325 MG TAB PO PRN (21:30)
[2024-11-19] MEDS: FERROUS SULFATE 325mg EC TAB PO SCH (22:00)
[2024-11-19] MEDS: GABAPENTIN 300 MG CAP PO SCH (22:00)
[2024-11-19] MEDS: METOPROLOL TARTRATE 25 MG TAB PO SCH (22:00)
[2024-11-19] MEDS: SODIUM CHLOR 0.9% PF (SALINE LOCK) 10ML VIAL/SYR IV SCH (22:00)
--- NOTE | 2024-11-19 22:05 | DVH ---
CHEST RADIOGRAPH Indication: CHF/PNA Technique: Single frontal view of the chest was obtained Comparison: CXRP on DOS: 03/04/22, EKG on DOS: 03/04/22, EKG on DOS: 03/04/22 FINDINGS: Lines and Tubes: None Lungs: No focal consolidation. Pleura: No effusion. No pneumothorax. Cardiomediastinal contours: Unremarkable Bones: No acute osseous abnormality. IMPRESSION: 1. Patient is rotated right. 2. No acute cardiopulmonary disease.
[2024-11-19 22:57] VITALS: BP 145/65; PULSE 64; RESP 20; TEMP 97.4; O2SAT 91
[2024-11-19 22:59] VITALS: PULSE 63; RESP 17; O2SAT 96
[2024-11-20] VITALS (10 sets, daily range): BP systolic 133–151; BP diastolic 48–82; PULSE 52–85; RESP 16–18; TEMP 97.3–98.2; O2SAT 95–99
[2024-11-20 02:19] LABS: Free T3 3.07 pg/mL (2.3-4.2); Free T4 (Free Thyroxine) 1.19 ng/dL (0.89-1.76)
[2024-11-20] MEDS: SODIUM CHLORIDE 0.9% 1,000 ML IV SCH (06:30)
[2024-11-20] MEDS: MAGNESIUM SULFATE 1GM/100ML 100 ML IV ONE (06:30)
[2024-11-20 07:32] LABS: Hematocrit 44.1 % (36.0-46.0); Hemoglobin 15.1 g/dL (12.2-16.2); Mean Corpuscular Hemoglobin 31.0 pg (28.0-32.0); Mean Corpuscular Volume 90.7 fL (80.0-100.0); Nucleated Red Blood Cells % 0.0 %
[2024-11-20 07:46] LABS: Alanine Aminotransferase 10 U/L (7-40); Alkaline Phosphatase 64 U/L (46-116); Anion Gap 11 (5-15); BUN/Creatinine Ratio 29.5 (10.0-20.0); Calcium 10.3 mg/dL (8.7-10.4); Carbon Dioxide 29 mmol/L (20-31); Potassium 3.9 mmol/L (3.5-5.1); Total Protein 7.4 g/dL (5.7-8.2)
[2024-11-20 07:47] LABS: Albumin 4.7 g/dL (3.2-4.8); Bilirubin, Total 0.6 mg/dL (0.2-1.0); Blood Urea Nitrogen 28 mg/dL (9-23); Chloride 96 mmol/L (98-107); Glucose 157 mg/dL (74-106); Sodium 136 mmol/L (136-145)
[2024-11-20] MEDS: PANTOPRAZOLE 40 MG TAB PO SCH (10:08)
[2024-11-20] MEDS: ENOXAPARIN SOD 40 MG/0.4 ML SYRINGE SC SCH (10:08)
[2024-11-20] MEDS: LISINOPRIL 5 MG TAB PO SCH (10:11)
[2024-11-20] MEDS ORDERED: diphenhdrAMINE HCL 25 MG CAP PO PRN (10:15)
[2024-11-20] MEDS: hydroCHLOROthiazide 25 MG TAB PO SCH (10:15)
[2024-11-20] MEDS: diphenhdrAMINE HCL 25 MG CAP PO ONE (10:58)
[2024-11-20] MEDS: CLINDAMYCIN 600MG IV 50 ML IV ONE (10:59)
[2024-11-20] MEDS: predniSONE 20 MG TAB PO ONE (10:59)
--- NOTE | 2024-11-20 12:11 | DVHPNRES ---
Progress Note Date Seen: Nov 20, 2024 Resident Creating Document: BRANDTGIUSEPPE Rogers RESIDENT Has the PT tested + for MRSA If YES, has PT been informed?: No Medical Necessity Reason Pt with a Central, PICC or Fol: No Subjective Review of Systems The patient living in assisted living facility reports pain in the reddish swelling. She has developed the rash since last 7 days. She could not remember use of any new medications, however patient's home medications revealed recent use of topical Voltaren gel. She has no history of swimming in a pool. She denies shortness of breath, chest pain, fever, abdominal pain or any other complaints. She had a history of the dry cough few days back. She is ambulatory with the use of her walker. The patient reports her PCP Dr. Catarina Bradshaw advised her to see a client relationship manager for heart failure. Review of systems: The patient was seen and examined at the bedside. Overnight events were reviewed. ROS as above. No new complaints reported. Rest of the ROS is negative. Objective vital signs Vital Sign Date Time Temp Pulse Resp B/P (MAP) Pulse Ox O2 Delivery O2 Flow Rate FiO2 11/20/24 12:05 158/86 11/20/24 11:10 82 11/20/24 08:39 97.5 17 96 97.5 11/20/24 08:00 Nasal Cannula* 2 28 medications Current Medications Medications Dose Ordered Sig/Russell Route Start Time Stop Time Status Last Admin Dose Admin Sodium Chloride 10 ml Q8HR IV 11/19/24 22:00 11/20/24 06:00 10 ML Enoxaparin Sodium 40 mg DAILY SC 11/20/24 10:00 11/20/24 10:08 40 MG Acetaminophen 650 mg Q6HP PRN PO 11/19/24 21:30 Ferrous Sulfate 325 mg BID PO 11/19/24 22:00 11/20/24 10:11 325 MG Gabapentin 300 mg TID PO 11/19/24 22:00 11/19/24 22:00 300 MG Hydralazine HCl 25 mg QID PO 11/19/24 22:00 11/20/24 12:05 25 MG Metoprolol Tartrate 12.5 mg BID PO 11/19/24 22:00 11/20/24 10:10 12.5 MG Pantoprazole Sodium 40 mg DAILYPRN PO 11/20/24 10:00 11/20/24 10:08 40 MG Alendronate Sodium 70 mg QWEEKLY PO 11/26/24 06:00 Hydrochlorothiazide 12.5 mg DAILY PO 11/20/24 10:00 11/20/24 10:15 12.5 MG Lisinopril 10 mg DAILY PO 11/20/24 10:00 11/20/24 10:11 10 MG Sodium Chloride 1,000 ml @ 100 mls/hr Q10H IV 11/20/24 01:30 11/20/24 06:30 100 MLS/HR Atorvastatin Calcium 40 mg HS PO 11/20/24 22:00 Prednisone 40 mg DAILY PO 11/21/24 10:00 Clindamycin Phosphate 50 ml @ 50 mls/hr Q8HR IV 11/20/24 14:00 Diphenhydramine HCl 25 mg Q6HP PRN PO 11/20/24 10:15 Examination Pt is lying on bed General Appearance: Alert, Oriented X3, Cooperative, Mild distress HEENT: Atraumatic, Mucous membranes moist/pink Respiratory: Clear to auscultation, Normal air movement, No added sounds Cardiovascular: Regular rate, Normal S1, Normal S2, No murmurs Abdominal/ : Active bowel sounds, Soft, no distention, no tenderness Extremities: No edema, Normal pulses, No tenderness/swelling Skin: Bilateral lower extremity rash measuring 10x5 cm characterized by diffusely erythematous patches and plaques with areas of confluent redness and scattered petechiae or ecchymosis like discoloration. There is no obvious raised borders central clearing. No gross desquamation or vesiculation present. Bilateral upper extremity also have similar rash measuring 6 cm. Neuro: Normal speech, sensorimotor deficits none Psych/Mental Status: Mental status NL, Mood NL Nurse was there as industrial relations representative during examination laboratory and microbiology Laboratory Tests 11/20/24 06:47 Test 11/20/24 06:47 Range/Units Serum Glucose 157 H 74-106 mg/dL Labs and/or images reviewed: Labs reviewed by me, Image(s) reviewed by me Problem List/Assessment/Plan Problem List/Assessment/Plan # bilateral lower extremity swelling and redness due to acute cellulitis or allergic reaction/ CHF #Ruled out DVT -ESR 33, CRP 2.05 -BNP 138 -CXR no acute abnormality -Doppler study of the lower extremity was negative for DVT. -IV Solu-Medrol loading dose 125 was given -Prednisone 40 mg daily -Diphenhydramine -IV clindamycin -blood culture pending #JORDY likely due to VMN Avoid dehydration and nephrotoxic drugs IV continue IV normal saline #Hypertension -continue lisinopril 10 mg p.o. daily -metoprolol 12.5 mg p.o. b.i.d. -continue hydrochlorothiazide 12.5 mg p.o. daily -monitor blood pressure #PreDM -EQX0Q-6.8 -low carb diet #Hyperlipidemia -continue atorvastatin 40 mg p.o. q.h.s. #Arthritis -continue Tylenol p.r.n. # GERD -continue pantoprazole 40 mg p.o. daily Diet-cardiac diet Goals of care, Code status DNR ; discussed with >15 minutes PUD prophylaxis: Pantoprazole DVT prophylaxis: Lovenox Goals of care discussed with the patient for more than 27 minutes: Full code status Case discussed with , patient and RN Plan discussed with: Patient, Other (RN) My Orders My Orders Orders - GIUSEPPE CARLTON RESIDENT Procedure Category Date Status Time Prednisone Tablet PHA 11/21/24 In Process 10:00 Clindamycin 600mg Iv PHA 11/20/24 In Process (Cleocin Iv) 14:00 Mrsa Screen MIKO 11/20/24 Uncollected 10:04 Diphenhdramine PHA 11/20/24 In Process Capsule (Benadryl 10:15 Date of Service: Nov 20, 2024 Billing Provider: GAL LOPEZ MD Common Visit Codes: [id number] INP/OBS CARE(HIGH) GIUSEPPE CARLTON RESIDENT Nov 20, 2024 12:11 GAL LOPEZ MD Nov 22, 2024 00:22
--- NOTE | 2024-11-20 12:45 | ECG ---
[facility] Test Date: 2024-11-19 Test Time: 18:21:44 Pat Name: MELISSA STACY Department: ED Room: 0274 A Gender: F Tape Deck Installer: ILAN : 1940 Requested By: MIGUEL NICOLAS Order Number: [id number] Reading MD: Zack Cabrera Measurements Intervals [place] Rate: 68 P: 43 GA: 192 QRS: -85 QRSD: 134 T: 65 QT: 421 QTc: 448 Interpretive Statements Sinus rhythm Nonspecific IVCD with LAD Probable anteroseptal infarct, recent ST elevation, consider inferior injury Lateral leads are also involved Baseline wander in lead(s) V4,V5,V6 Electronically Signed On 11-26-2024 17:30:18 PDT by Zack Cabrera Please click the below link to view image of tracing.
[2024-11-20] MEDS: CLINDAMYCIN 600MG IV 50 ML IV SCH (14:34)
[2024-11-20] MEDS: ATORVASTATIN 20 MG TAB PO SCH (22:23)
[2024-11-21 05:00] VITALS: BP 188/68; PULSE 82; RESP 18; TEMP 97.9; O2SAT 96
[2024-11-21 05:46] LABS: Hematocrit 41.5 % (36.0-46.0); Hemoglobin 14.0 g/dL (12.2-16.2); Mean Corpuscular Hemoglobin 31.3 pg (28.0-32.0); Mean Corpuscular Volume 93.0 fL (80.0-100.0); Nucleated Red Blood Cells % 0.0 %
[2024-11-21 05:52] LABS: Calcium 10.1 mg/dL (8.7-10.4); Potassium 4.1 mmol/L (3.5-5.1)
[2024-11-21 05:53] LABS: Anion Gap 10 (5-15); Carbon Dioxide 26 mmol/L (20-31)
[2024-11-21 05:58] LABS: BUN/Creatinine Ratio 40.4 (10.0-20.0)
[2024-11-21 06:02] LABS: Blood Urea Nitrogen 36 mg/dL (9-23); Chloride 98 mmol/L (98-107); Glucose 145 mg/dL (74-106); Sodium 134 mmol/L (136-145)
[2024-11-21] MEDS ORDERED: hydrALAZINE HCL 20 MG/ML VL IV PRN (06:45)
[2024-11-21 08:00] VITALS: O2SAT 98
--- NOTE | 2024-11-21 08:40 | DVHSR ---
APPROVED REPORT EXAM: Two-dimensional and M-mode echocardiogram with Doppler and color Doppler. Blood Pressure: 151/54 mmHg INDICATION Dyspnea rule Out CHF/valvular heart disease RISK FACTORS Height: 4'10, Weight: 141 DIMENSIONS LVDd4.1 (3.8-5.7cm)LA (2D)4.0 (1.9-4.0cm)Aortic Root2.8 (2.0-3.7cm) LVDs2.8 (2.5-4.0cm)LA (MM) (1.9-4.0cm)Aortic Cusp Exc1.5 (1.5-2.0cm) EF (%) 60.0 (55-70%)Rt. Atrium3.0 (1.9-4.0cm)Asc. Aorta cm IVSd1.0 (0.7-1.1cm)RV (D)3.6 (1.8-2.4cm) PWd0.7 (0.7-1.1cm) Mitral Valve MitralMitral Stenosis E wave0.79m/sMV Mean GR.mmHg A wave1.15m/sMV Peak GR.108mmHg E/A ratio0.72D MVAcm2 DECEL [id number] 1/2 Timems Aortic Valve Aortic ValveAortic Stenosis V11.18m/Cami Mean GR.10mmHg V22.10m/Cami Peak GR.18mmHg LVOT Diameter1.9 (1.8-2.4cm)Doppler AVA1.59cm2 AI P 1/2 Oanx926.35ms Pulmonic Valve V21.00m/s Tricuspid Valve TR Velocity3.73m/s [id number] Other Information Quality : Technically LimitedRhythm : Conclusion LVEF 60-65%, mild LVH Right ventricle size and function normal Left atrium mildly dilated Mild aortic stenosis Severe pulmonary hypertension, RVSP 60-65 mmgh
[2024-11-21] MEDS: predniSONE 20 MG TAB PO SCH (08:56)
[2024-11-21] MEDS: hydroCHLOROthiazide 25 MG TAB PO SCH (08:59)
[2024-11-21 09:00] VITALS: BP 162/59; PULSE 40; RESP 16; TEMP 96; O2SAT 97
[2024-11-21 10:31] LABS: Hepatitis B Surface Antigen Negative (Negative); Hepatitis C Antibody Negative (Negative)
[2024-11-21] MEDS ORDERED: CALAMINE TOPical LOTION180 ML TOP PRN (11:15)
[2024-11-21] MEDS: CALAMINE TOPical LOTION180 ML TOP ONE (12:18)
[2024-11-21 14:05] VITALS: BP 154/93; PULSE 70; RESP 16; TEMP 97.6; O2SAT 97
[2024-11-21] MEDS: MAGNESIUM OXIDE 400 MG TAB PO ONE (14:42)
[2024-11-21 16:45] VITALS: BP 144/66; PULSE 48; RESP 16; TEMP 97.2; O2SAT 95
--- NOTE | 2024-11-21 20:10 | DVHPNRES ---
Progress Note Date Seen: Nov 21, 2024 Resident Creating Document: SASHARIN CORONADOTIFFANI RESIDENT Has the PT tested + for MRSA If YES, has PT been informed?: No Medical Necessity Reason Pt with a Central, PICC or Fol: No Subjective Review of Systems The patient living in assisted living facility reports pain in the reddish swelling. She has developed the rash since last 7 days. She could not remember use of any new medications, however patient's home medications revealed recent use of topical Voltaren gel. She has no history of swimming in a pool. She denies shortness of breath, chest pain, fever, abdominal pain or any other complaints. She had a history of the dry cough few days back. She is ambulatory with the use of her walker. The patient reports her PCP Dr. Catarina Bradshaw advised her to see a creative services director for heart failure. Review of systems:The patient was seen and examined at the bedside. Overnight events were reviewed. ROS as above. No new complaints reported. Rest of the ROS is negative. Objective vital signs Vital Sign Date Time Temp Pulse Resp B/P (MAP) Pulse Ox O2 Delivery O2 Flow Rate FiO2 11/21/24 17:37 144/66 11/21/24 16:45 97.2 48 16 95 97.2 11/21/24 08:00 Nasal Cannula* 2 28 Total Intake and Output 11/20/24 11/20/24 11/21/24 14:59 22:59 06:59 Intake Total 50 ml 650 ml 1200 ml Balance 50 ml 650 ml 1200 ml medications Current Medications Medications Dose Ordered Sig/Russell Route Start Time Stop Time Status Last Admin Dose Admin Sodium Chloride 10 ml Q8HR IV 11/19/24 22:00 11/21/24 14:38 10 ML Enoxaparin Sodium 40 mg DAILY SC 11/20/24 10:00 11/21/24 08:58 40 MG Acetaminophen 650 mg Q6HP PRN PO 11/19/24 21:30 Ferrous Sulfate 325 mg BID PO 11/19/24 22:00 11/21/24 08:58 325 MG Gabapentin 300 mg TID PO 11/19/24 22:00 11/21/24 05:04 300 MG Hydralazine HCl 25 mg QID PO 11/19/24 22:00 11/21/24 17:37 25 MG Metoprolol Tartrate 12.5 mg BID PO 11/19/24 22:00 11/21/24 08:57 12.5 MG Pantoprazole Sodium 40 mg DAILYPRN PO 11/20/24 10:00 11/21/24 08:56 40 MG Alendronate Sodium 70 mg QWEEKLY PO 11/26/24 06:00 Hydrochlorothiazide 12.5 mg DAILY PO 11/20/24 10:00 11/21/24 08:58 12.5 MG Lisinopril 10 mg DAILY PO 11/20/24 10:00 11/21/24 08:58 10 MG Sodium Chloride 1,000 ml @ 100 mls/hr Q10H IV 11/20/24 01:30 11/21/24 17:37 100 MLS/HR Atorvastatin Calcium 40 mg HS PO 11/20/24 22:00 11/20/24 22:23 40 MG Prednisone 40 mg DAILY PO 11/21/24 10:00 11/21/24 08:56 40 MG Clindamycin Phosphate 50 ml @ 50 mls/hr Q8HR IV 11/20/24 14:00 11/21/24 14:42 50 MLS/HR Diphenhydramine HCl 25 mg Q6HP PRN PO 11/20/24 10:15 Hydralazine HCl 10 mg Q6HP PRN IV 11/21/24 06:45 Hydrochlorothiazide 12.5 mg DAILY PO 11/21/24 10:00 Calamine 1 applic QIDP PRN TOP 11/21/24 11:15 Magnesium Oxide 400 mg BID PO 11/21/24 22:00 Examination Pt is lying on bed General Appearance: Alert, Oriented X3, Cooperative, Mild distress HEENT: Atraumatic, Mucous membranes moist/pink Respiratory: Clear to auscultation, Normal air movement, No added sounds Cardiovascular: Regular rate, Normal S1, Normal S2, No murmurs Abdominal/ : Active bowel sounds, Soft, no distention, no tenderness Extremities: No edema, Normal pulses, No tenderness/swelling Skin: Bilateral lower extremity rash measuring 10x5 cm characterized by diffusely erythematous patches and plaques with areas of confluent redness and scattered petechiae or ecchymosis like discoloration. There is no obvious raised borders central clearing. No gross desquamation or vesiculation present. Bilateral upper extremity also have similar rash measuring 6 cm. Neuro: Normal speech, sensorimotor deficits none Psych/Mental Status: Mental status NL, Mood NL Nurse was there as test director during examination laboratory and microbiology Laboratory Tests 11/21/24 04:11 Test 11/21/24 04:11 Range/Units Serum Glucose 145 H 74-106 mg/dL Microbiology Date/Time Source Procedure Growth Status 11/20/24 12:00 Nose MRSA Screen - Final Complete 11/19/24 18:48 Blood Blood Culture - Preliminary NO GROWTH AFTER 24 HOURS OF INCUBATION. Resulted Labs and/or images reviewed: Labs reviewed by me, Image(s) reviewed by me Problem List/Assessment/Plan Problem List/Assessment/Plan # bilateral lower extremity swelling and redness due to allergic reaction complicated by Acute cellulitis #Ruled out DVT -ESR 33, CRP 2.05 -BNP 138 -CXR no acute abnormality -Doppler study of the lower extremity was negative for DVT. -IV Solu-Medrol loading dose 125 was given -Prednisone 40 mg daily -Diphenhydramine -IV clindamycin -blood culture pending #JORDY likely due to VMN Avoid dehydration and nephrotoxic drugs IV continue IV normal saline #Hypertension -continue lisinopril 10 mg p.o. daily -metoprolol 12.5 mg p.o. b.i.d. -continue hydrochlorothiazide 12.5 mg p.o. daily -monitor blood pressure #PreDM -TEI9Y-5.8 -low carb diet #Hyperlipidemia -continue atorvastatin 40 mg p.o. q.h.s. #Arthritis -continue Tylenol p.r.n. # GERD -continue pantoprazole 40 mg p.o. daily Diet-cardiac diet Goals of care, Code status DNR ; discussed with >15 minutes PUD prophylaxis: Pantoprazole DVT prophylaxis: Lovenox Goals of care discussed with the patient for more than 27 minutes: Full code status Case discussed with , patient and RN. Possible DC tomorrow. Plan discussed with: Patient My Orders My Orders Orders - GIUSEPPE CARLTON RESIDENT Procedure Category Date Status Time Calamine Lotion PHA 11/21/24 In Process 11:15 Date of Service: Nov 21, 2024 Billing Provider: GAL LOPEZ MD Common Visit Codes: [id number] INP/OBS CARE(HIGH) GIUSEPPE CARLTON RESIDENT Nov 21, 2024 20:10 EREN BAEZ RESIDENT Nov 21, 2024 20:18 GAL LOPEZ MD Nov 22, 2024 00:23
[2024-11-21 21:00] VITALS: BP 149/64; PULSE 46; RESP 18; TEMP 97.4; O2SAT 96
[2024-11-21] MEDS: MAGNESIUM OXIDE 400 MG TAB PO SCH (22:19)
[2024-11-22 01:00] VITALS: BP 119/62; PULSE 64; RESP 17; TEMP 97.6; O2SAT 95
[2024-11-22 05:00] VITALS: BP 143/76; PULSE 73; RESP 17; TEMP 97.5; O2SAT 94
[2024-11-22 08:00] VITALS: PULSE 64; RESP 17; O2SAT 95
[2024-11-22 08:00] LABS: Anion Gap 9 (5-15); Carbon Dioxide 27 mmol/L (20-31); Chloride 100 mmol/L (98-107); Sodium 136 mmol/L (136-145)
[2024-11-22 08:01] LABS: Calcium 9.4 mg/dL (8.7-10.4)
[2024-11-22 08:05] LABS: Glucose 101 mg/dL (74-106)
[2024-11-22 08:06] LABS: BUN/Creatinine Ratio 38.9 (10.0-20.0)
[2024-11-22 08:11] LABS: Blood Urea Nitrogen 28 mg/dL (9-23); Potassium 3.5 mmol/L (3.5-5.1)
[2024-11-22 09:00] VITALS: BP 140/70; PULSE 96; RESP 18; TEMP 96.8; O2SAT 96
[2024-11-22] MEDS: POTASSIUM EFFERVESENT TAB 25 MEQ PO ONE (11:36)
[2024-11-22] MEDS ORDERED: CALALOT11 TOP (12:01)
[2024-11-22] MEDS ORDERED: PRED20TA2 PO (12:01)
[2024-11-22 13:00] VITALS: BP 130/45; PULSE 41; RESP 18; TEMP 96.8; O2SAT 96
--- NOTE | 2024-11-22 13:28 | DVHDSRES ---
Discharge Summary Date of Admission Resident Creating Document: EREN BAEZ RESIDENT Nov 19, 2024 at 21:21 Date of Discharge: Nov 22, 2024 Admitting Diagnosis Allergic reaction or cellulitis Labs/Diagnostic Data: Laboratory Results Test 11/22/24 06:33 11/21/24 04:11 11/20/24 06:47 11/20/24 00:26 Sodium Level 136 mmol/L (136-145) Potassium Level 3.5 mmol/L (3.5-5.1) Chloride Level 100 mmol/L (98-107) Carbon Dioxide Level 27 mmol/L (20-31) Anion Gap 9 (5-15) Blood Urea Nitrogen 28 mg/dL (9-23) Creatinine 0.72 mg/dL (0.550-1.02) Glomerular Filtration Rate Calc 81 mL/min (>90) BUN/Creatinine Ratio 38.9 (10.0-20.0) Serum Glucose 101 mg/dL (74-106) Calcium Level 9.4 mg/dL (8.7-10.4) White Blood Count 10.4 10^3/uL (4.4-10.8) Red Blood Count 4.46 10^6/uL (4.0-5.20) Hemoglobin 14.0 g/dL (12.2-16.2) Hematocrit 41.5 % (36.0-46.0) Mean Corpuscular Volume 93.0 fL (80.0-100.0) Mean Corpuscular Hemoglobin 31.3 pg (28.0-32.0) Mean Corpuscular Hemoglobin Concent 33.7 g/dL (32.0-36.0) Red Cell Distribution Width 14.2 % (11.8-14.3) Platelet Count 269 10^3/uL (140-450) Mean Platelet Volume 9.4 fL (6.9-10.8) Neutrophils (%) (Auto) 84.9 % (37.0-80.0) Lymphocytes (%) (Auto) 8.5 % (10.0-50.0) Monocytes (%) (Auto) 6.2 % (0.0-12.0) Eosinophils (%) (Auto) 0.2 % (0.0-7.0) Basophils (%) (Auto) 0.2 % (0.0-2.0) Neutrophils # (Auto) 8.8 10 ^3/uL (1.6-8.6) Lymphocytes # (Auto) 0.9 10 ^3/uL (0.4-5.4) Monocytes # (Auto) 0.6 10 ^3/uL (0-1.3) Eosinophils # (Auto) 0 10 ^3/uL (0-0.8) Basophils # (Auto) 0 10 ^3/uL (0-0.2) Nucleated Red Blood Cells 0.0 % Magnesium Level 2.1 mg/dL (1.6-2.6) Total Bilirubin 0.6 mg/dL (0.2-1.0) Aspartate Amino Transferase (AST) 12 U/L (13-40) Alanine Aminotransferase (ALT) 10 U/L (7-40) Alkaline Phosphatase 64 U/L (46-116) Total Protein 7.4 g/dL (5.7-8.2) Albumin 4.7 g/dL (3.2-4.8) Troponin I High Sensitivity < 3 ng/L (</=34) Free Thyroxine (T4) Calculated 1.19 ng/dL (0.89-1.76) Free Triiodothyronine (T3) pg/mL 3.07 pg/mL (2.3-4.2) Test 11/19/24 21:39 11/19/24 18:48 Thyroid Stimulating Hormone (TSH) 0.46 uIU/mL (0.55-4.78) Erythrocyte Sedimentation Rate 33 mm/hr (0-20) Hemoglobin A1c 5.8 % A1C (<5.7) Lactic Acid Level 1.6 mmol/L (0.4-2.0) C-Reactive Protein High Sensitivity 2.05 mg/dL (<1.0) B-Type Natriuretic Peptide 138.53 pg/mL (0-100) Vitamin B12 Level 888 pg/mL (211-911) Vitamin D 25-Hydroxy 40.4 ng/mL (30.0-100) Folic Acid 47.32 ng/mL (>5.38) Hepatitis B Surface Antigen Negative (Negative) Hepatitis C Antibody Negative (Negative) Other Laboratory Tests 11/22/24 06:33 11/21/24 04:11 Brief Hx & Hospital Course: The patient was admitted with bilateral lower extremity swelling and erythema, initially suspected to be due to an allergic reaction, which was subsequently complicated by acute cellulitis. Deep vein thrombosis (DVT) was ruled out via Doppler ultrasound. Inflammatory markers were elevated (ESR 33, CRP 2.05), and BNP was mildly elevated at 138. Chest X-ray showed no acute abnormalities. The patient was treated with a loading dose of IV Solu-Medrol 125 mg, followed by oral prednisone 40 mg daily, diphenhydramine, and IV clindamycin. Calamine lotion was prescribed for itching. Blood cultures were obtained and are pending at the time of discharge. The patient also developed acute kidney injury (JORDY), likely secondary to volume depletion. Nephrotoxic agents were avoided, and IV normal saline was continued for hydration. The patients blood pressure was managed with continuation of lisinopril 10 mg daily, metoprolol 12.5 mg twice daily, and hydrochlorothiazide 12.5 mg daily, with ongoing monitoring recommended. Additional comorbidities include prediabetes (HbA1c 5.8%), for which a low- carbohydrate diet was advised, and hyperlipidemia, managed with atorvastatin 40 mg at bedtime. The patient also has a history of arthritis, for which acetaminophen was continued as needed, and gastroesophageal reflux disease (GERD), managed with pantoprazole 40 mg daily. A cardiac diet was recommended upon discharge. Pt is lying on bed General Appearance: Alert, Oriented X3, Cooperative, Mild distress HEENT: Atraumatic, Mucous membranes moist/pink Respiratory: Clear to auscultation, Normal air movement, No added sounds Cardiovascular: Regular rate, Normal S1, Normal S2, No murmurs Abdominal/ : Active bowel sounds, Soft, no distention, no tenderness Extremities: No edema, Normal pulses, No tenderness/swelling Skin: Improvement of rash based on previous ronan. Neuro: Normal speech, sensorimotor deficits none Psych/Mental Status: Mental status NL, Mood NL Nurse was there as charity fundraiser during examination Operations or Procedures Extremity venous study: No DVT Chest x-ray: no acute cardiopulmonary disease Condition at Discharge: Stable Final Diagnosis/Problems List Bilateral lower extremity swelling and redness due to an allergic reaction complicated by acute cellulitis Ruled out DVT JORDY likely due to VMN Hypertension Pre DM Hyperlipidemia Arthritis Discharge Disposition: Assisted Living Facility Discharge Instruct/Medications Diet: Consistent carbohydrate, Cardiac 2g Na,low cholest Activity: No Restrictions, As Tolerated Follow Up/Referral: Follow up with PCP in 1 week Medications: As per EMR Scheduled Acetaminophen W/ Codeine (Acetaminophen/Codeine), 1 TAB PO DAILY, (Reported) Alendronate Sodium (Alendronate Sodium), 1 TAB PO QWEEKLY, (Reported) Baclofen (Baclofen), 5 MG PO BID PRN, (Reported) Diclofenac Sodium (Topical) (Voltaren Arthritis Pain), 1 % TOP BID PRN, (Reported) Ferrous Sulfate (Ferrous Sulfate), 1 TAB PO BID Gabapentin (Neurontin Capsule), 300 MG OR TID, (Reported) Hydralazine HCl (Hydralazine HCl), 1 TAB PO QID, (Reported) Hydrochlorothiazide (Hydrochlorothiazide), 1 CAP PO DAILY, (Reported) Levofloxacin Hemihydrate (Levaquin 500 Mg), 500 MG PO DAILY Lisinopril (Lisinopril), 1 TAB PO DAILY, (Reported) Metoprolol Tartrate (Lopressor), 12.5 MG PO BID Pantoprazole Sodium Sesquihydr (Pantoprazole Sodium), 1 TAB PO DAILYPRN, (Reported) Prednisone (Prednisone), 20 MG PO DAILY Tramadol Hcl (Tramadol Hcl), 50 MG PO PRN, (Reported) Scheduled PRN Calamine (Sm Calamine), 1 APPLIC TOP QIDP PRN Discharge Statement: "Patient was advised to return to the ER or call 911 if any headaches, dizziness, shortness of breath, chest pain, abdominal pain, bleeding, fevers, or worsening of medical condition. Patient was counseled about treatment plan, medications, possible side effects, patientverbalized understanding. All questions were answered to the best of my ability. This discharge took greater then 30 minutes in planning, reviewing documentation, counseling the patient, and discussing with other team members." ASSESSMENT ASSESSMENT Assessment Bilateral lower extremity swelling and redness due to an allergic reaction complicated by acute cellulitis Ruled out DVT JORDY likely due to VM and Hypertension Pre DM Hyperlipidemia Arthritis Date of Service: Nov 22, 2024 Billing Provider: GAL LOPEZ MD Common Visit Codes: [id number]/[id number] DISCH DAY >30min GIUSEPPE CARLTON Nov 22, 2024 13:28 GAL LOPEZ MD Nov 24, 2024 10:50
--- NOTE | 2024-11-24 08:38 | ECG ---
[facility] Test Date: 2024-11-21 Test Time: 14:06:37 Pat Name: MELISSA STACY Department: Room: 0274 A Gender: F Geophysicist: YANCI : 1940 Requested By: GAL LOPEZ Order Number: [id number] Reading MD: Zack Cabrera Measurements Intervals [place] Rate: 96 P: 61 MD: 181 QRS: -36 QRSD: 134 T: 121 QT: 398 QTc: 503 Interpretive Statements Sinus rhythm Ventricular bigeminy Left bundle branch block Electronically Signed On 11-26-2024 13:51:43 PDT by Zack Cabrera Please click the below link to view image of tracing.
--- NOTE | 2024-11-25 07:19 | ECG ---
[facility] Test Date: 2024-11-21 Test Time: 14:08:14 Pat Name: MELISSA STACY Department: Room: 0274 A Gender: F Pipe Smoking Machine Operator: YANCI : 1940 Requested By: DARIN CAMARILLO Order Number: [id number] Reading MD: Zack Cabrera Measurements Intervals [place] Rate: 93 P: 37 [place]: 189 QRS: -34 QRSD: 134 T: 119 QT: 398 QTc: 496 Interpretive Statements Sinus rhythm Ventricular bigeminy Left bundle branch block Baseline wander in lead(s) V1,V2 Electronically Signed On 11-26-2024 13:51:46 PDT by Zack Cabrera Please click the below link to view image of tracing.
[2024-11-26] MEDS ORDERED: ALENDRONATE SODIUM 10 MG TAB PO SCH (06:00)
== END 2024-11-22 15:11 | disposition home or self-care (01) | DRG 915 ==
LOC: ER 18:20 → EDBD 18:20 → OVERFLOW 21:21 → WEST WING 23:58
PROVIDERS: ADMIT Internal Medicine; ATTEND Internal Medicine
DX: T78.49XA Other allergy, initial encounter (principal); N17.0 Acute kidney failure with tubular necrosis; L03.116 Cellulitis of left lower limb; L03.115 Cellulitis of right lower limb; K21.9 Gastro-esophageal reflux disease without esophagitis; Z66 Do not resuscitate; L29.9 Pruritus, unspecified; R73.03 Prediabetes; M19.09 Primary osteoarthritis, other specified site; I10 Essential (primary) hypertension; E78.5 Hyperlipidemia, unspecified; Z88.0 Allergy status to penicillin; Z79.899 Other long term (current) drug therapy; Z90.710 Acquired absence of both cervix and uterus; Z90.49 Acquired absence of other specified parts of digestive tract; X58.XXXA Exposure to other specified factors, initial encounter
CPT/HCPCS: 36415; 71045; 80048; 80053; 82306; 82607; 82746; 82785; 83036; 83605; 83735; 83880; 84439; 84443; 84481; 84484; 85025; 85652; 86141; 86803; 87040; 87081; 87340; 93005; 93306; 93970; 96365; 96375; G0378; J3490

== ENCOUNTER 2025-01-20 09:25 | Outpatient (CLI) | payer MEDICARE, OTHER ==
[~2025-01-20 09:25] MED LIST changes: +CALALOT11 TOP; +PRED20TA2 PO
== END 2025-01-20 17:00 | disposition home or self-care (01) ==
LOC: Rad HDHVI 09:25
PROVIDERS: ATTEND Internal Medicine Cardiovascular Disease
DX: I11.0 Hypertensive heart disease with heart failure (principal); I50.23 Acute on chronic systolic (congestive) heart failure
CPT/HCPCS: 93306

== ENCOUNTER 2025-03-23 11:28 | Inpatient (IN) | payer MEDICARE, OTHER ==
[~2025-03-23] VITALS: Ht 152.4 cm; Wt 68.1 kg
[2025-03-23 13:41] LABS: Hematocrit 42.5 % (36.0-46.0); Hemoglobin 14.4 g/dL (12.2-16.2); Mean Corpuscular Hemoglobin 31.3 pg (28.0-32.0); Mean Corpuscular Volume 92.4 fL (80.0-100.0); Nucleated Red Blood Cells % 0.0 %
[2025-03-23 13:57] LABS: Chloride 98 mmol/L (98-107); Potassium 4.9 mmol/L (3.5-5.1); Sodium 137 mmol/L (136-145)
[2025-03-23 13:58] LABS: Anion Gap 8 (5-15); Carbon Dioxide 31 mmol/L (20-31)
[2025-03-23 13:59] LABS: Calcium 9.9 mg/dL (8.7-10.4)
[2025-03-23 14:03] LABS: BUN/Creatinine Ratio 30.5 (10.0-20.0); Glucose 103 mg/dL (74-106)
[2025-03-23 14:09] LABS: Blood Urea Nitrogen 29 mg/dL (9-23)
--- NOTE | 2025-03-23 14:21 | DVH ---
Right lower extremity venous duplex Clinical History: foot pain Comparison: US BILAT LOWER DVT on DOS: 11/19/24 Findings: Duplex Doppler evaluation of the deep venous system of the right lower extremity from the common femoral vein to the popliteal vein including color Doppler and spectral/pulsed waveform analysis was performed. The common femoral vein demonstrates appropriate compressibility and waveform variability. There is compressibility/patency of the great saphenous vein at the proximal thigh. The femoral vein demonstrates appropriate compressibility and waveform variability. The deep femoral vein demonstrates appropriate compressibility and waveform variability. The popliteal vein demonstrates appropriate compressibility and waveform variability. There is normal compressibility at the tibioperoneal trunk. Impression: No right femoropopliteal venous thrombosis. If clinical concern/symptoms persist or worsen, short-interval follow-up study is suggested.
--- NOTE | 2025-03-23 14:22 | DVH ---
Indication: R/o occlusion Technique: Real- time ultrasound images of the right lower extremity with grayscale, color, and spectral wave Doppler. Comparison: None Findings: Moderate plaque in the right GRAVITY PROSPECTING OPERATOR. Diffuse right lower extremity biphasic waveforms. Peak systolic velocities are as follows (in cm/s): Right: Common femoral artery: 167 Profunda femoris: 97 Proximal superficial femoral: 113 Mid superficial femoral artery: 95 Distal superficial femoral artery: 100 Popliteal artery: 76 Posterior tibial artery: 93 Anterior tibial artery: 50 Dorsalis pedis artery: 31 Impression: Moderate plaque within the right GRAVITY PROSPECTING OPERATOR with increased velocity could indicate moderate grade stenosis. No sonographic evidence for arterial occlusion/thrombosis
--- NOTE | 2025-03-23 14:36 | ED.PDOC ---
Musculoskeletal HPI Comments This is a 85 year old female presenting to the ED with chief complaint of right foot pain/discoloration. Patient reports that she is coming from [facility] where while changing her bed sheets yesterday, she had accidentally stepped on an unknown object, injuring her right foot. Patient relays that she ignored it, however, this morning her right foot and toes appeared red with associated pain and swelling to her right foot. Patient denies any numbness, weakness, tingling, fever, chills, SOB, or chest pain. Chief Complaint: Lower Extremity Time Seen by MD: 14:31 Primary Care Provider: NONE Reviewed Notes: Nurses Notes, Medications, Allergies Allergies: Coded Allergies: Penicillins (Verified Allergy, Unknown, 10/19/15) Home Meds Active Scripts Prednisone (Prednisone) 20 Mg Tab, 20 MG PO DAILY for 5 Days, #5 TAB Prov:EREN BAEZ RESIDENT 11/22/24 Calamine (Sm Calamine) Lot, 1 APPLIC TOP QIDP PRN for 15 Days, #2 BOTTLE Prov:EREN BAEZ RESIDENT 11/22/24 Levofloxacin Hemihydrate (LEVAQUIN 500 MG) 500 Mg Tab, 500 MG PO DAILY for 5 Days, #5 TAB Prov:ABRAN KENDALL MD 06/08/23 Ferrous Sulfate (FERROUS SULFATE) 325 Mg Tb, 1 TAB PO BID, #60 TAB Prov:JULIANE ARIAS MD 12/14/20 Metoprolol Tartrate (Lopressor) 25 Mg Tb, 12.5 MG PO BID for 30 Days, #30 TAB Metoprolol 12.5 mg po bid Prov:BIBI FLAHERTY MD 10/01/20 Reported Medications Acetaminophen W/ Codeine (Acetaminophen/Codeine) 1 Tab Tab, 1 TAB PO DAILY Acetaminophen/Codeine 300/30 Mg 06/07/23 Diclofenac Sodium (Topical) (Voltaren Arthritis Pain) 1 % Gel, 1 % TOP BID PRN Apply 2 grams to affected area 2 times a day as needed 06/07/23 Hydralazine HCl (Hydralazine HCl) 25 Mg Tab, 1 TAB PO QID 06/07/23 Baclofen (Baclofen) 10 Mg Tab, 5 MG PO BID PRN 06/07/23 Lisinopril (Lisinopril) 10 Mg Tab, 1 TAB PO DAILY 06/07/23 Pantoprazole Sodium Sesquihydr (Pantoprazole Sodium) 40 Mg Tab, 1 TAB PO DAILYPRN 09/28/20 Alendronate Sodium (Alendronate Sodium) 70 Mg Tab, 1 TAB PO QWEEKLY 09/28/20 Tramadol Hcl (Tramadol Hcl) 50 Mg Tab, 50 MG PO PRN, TAB 10/19/15 Gabapentin (NEURONTIN CAPSULE) 300 Mg Cp, 300 MG OR TID, CP 10/19/15 Hydrochlorothiazide (Hydrochlorothiazide) 12.5 Mg Cap, 1 CAP PO DAILY, #30 CAP 5 Refills 10/19/15 Information Source: Patient Mode of Arrival: EMS Location: Right Extremity Location: Foot Timing: Days Prehospital treatment: None Severity: Moderate Able to Move Extremity: Yes Bear Weight: Limited Pain: Moderate Mechanism: Spontaneous Circumstances: Spontaneous Onset of Symptoms: After Trauma Symptoms: Swelling, Pain, Erythema DVT Risk Factors: NONE Past Medical History PAST MEDICAL HISTORY: Arthritis, GERD, High Lipids, HTN Surgical History: Cholecystectomy, Hernia Repair, Hysterectomy, Tonsillectomy AND [employer] History: No Pertinent [employer] History Family History Family History: Unobtainable Social History Smoker: Non-Smoker Alcohol: Denies ETOH Use Drugs: Denies Drug Use Lives In: Home Constitutional: denies: chills, diaphoresis, fatigue, fever, malaise, sweats, weakness, others EENTM: denies: blurred vision, double vision, ear bleeding, ear discharge, ear drainage, ear pain, ear ringing, eye pain, eye redness, hearing loss, mouth pain, mouth swelling, nasal discharge, nose bleeding, nose congestion, nose pain, photophobia, tearing, throat pain, throat swelling, voice changes, others Respiratory: denies: cough, hemoptysis, orthopnea, SOB at rest, shortness of breath, SOB with excertion, stridor, wheezing, others Cardiovascular: denies: chest pain, dizzy spells, diaphoresis, Dyspnea on exertion, edema, irregular heart beat, left arm pain, lightheadedness, palpitations, PND, syncope, others Gastrointestinal: denies: abdomen distended, abdominal pain, blood streaked bowels, constipated, diarrhea, dysphagia, difficulty swallowing, hematemesis, melena, nausea, poor appetite, poor fluid intake, rectal bleeding, rectal pain, vomiting, others Genitourinary: denies: abnormal vagina bleeding, burning, dyspareunia, dysuria, flank pain, frequency, hematuria, incontinence, pain, , vagina discharge, urgency, others Neurological: denies: dizziness, fainting, headache, left sided numbness, left sided weakness, numbness, paresthesia, pre-existing deficit, right sided numbness, right sided weakness, seizure, speech problems, tingling, tremors, weakness, others Musculoskeletal: reports: others (Rt foot pain and swelling); denies: back pain, gout, joint pain, joint swelling, muscle pain, muscle stiffness, neck pain Integumetry: reports: change in color; denies: bruises, change in hair/nails, dryness, laceration, lesions, lumps, rash, wounds, others Allergic/Immunocompromised: denies: Difficulty Healing, Frequent Infections, Hives, Itching, others Hematologic/Lymphatic: denies: anemia, blood clots, easy bleeding, easy bruising, swollen glands, others Endocrine: denies: excessive hunger, excessive sweating, excessive thirst, excessive urination, flushing, intolerance to cold, intolerance to heat, unexplained weight gain, unexplained weight loss, others Psychiatric: denies: anxiety, bipolar disorder, depression, hopeless, panic disorder, schizophrenia, sleepless, suicidal, others All Other Systems: Reviewed and Negative Physical Exam General Appearance: No Apparent Distress, Normal HEENT: Normal ENT Inspection, Pharynx Normal, TMs Normal Neck: Full Range of Motion, Non-Tender, Normal, Normal Inspection Respiratory: Chest Non-Tender, Lungs Clear, No Accessory Muscle Use, No Respiratory Distress, Normal Breath Sounds Cardiovascular: No Edema, No JVD, No Murmur, No Gallop, Normal Peripheral Pulses, Regular Rate/Rhythm Breast Exam: Deferred Gastrointestinal: No Organomegaly, Non Tender, No Pulsatile Mass, Normal Bowel Sounds, Soft Genitalia: Deferred Pelvic: Deferred Rectal: Deferred Extremities: Swelling (Right ) Musculoskeletal : Apperance: Normal Neurologic: Alert, buff wheel fabricator II-XII nml as Tested, No Motor Deficits, Normal Affect, Normal Mood, No Sensory Deficits Cerebellar Function: Normal Reflexes: Normal Skin: Dry, Warm, Other (Purplish discoloration to right 3rd, 4th, and 5th toes with 1+ swelling to RLE.) Lymphatic: No Adenopathy Was a procedure done? Was a procedure done?: No Images 1 - SCATTERED ERYTHEMATOUS PAPULES TO THE DORSAL ASPECT OF THE OF THE PHALANGES. NEUROVASCULARLY INTACT Differential Diagnosis EXT Differential Diagnosis: Cellulitis, Deep Vein Thrombosis X-Ray, Labs, Meds, VS Vital Signs Date Time Temp Pulse Resp B/P (MAP) Pulse Ox O2 Delivery O2 Flow Rate FiO2 03/23/25 11:30 98.0 75 14 158/90 98 98.0 Lab Test 03/23/25 13:22 Range/Units White Blood Count 6.8 4.4-10.8 10^3/uL Red Blood Count 4.60 4.0-5.20 10^6/uL Hemoglobin 14.4 12.2-16.2 g/dL Hematocrit 42.5 36.0-46.0 % Mean Corpuscular Volume 92.4 80.0-100.0 fL Mean Corpuscular Hemoglobin 31.3 28.0-32.0 pg Mean Corpuscular Hemoglobin Concent 33.9 32.0-36.0 g/dL Red Cell Distribution Width 12.8 11.8-14.3 % Platelet Count 242 140-450 10^3/uL Mean Platelet Volume 8.4 6.9-10.8 fL Neutrophils (%) (Auto) 71.5 37.0-80.0 % Lymphocytes (%) (Auto) 20.9 10.0-50.0 % Monocytes (%) (Auto) 6.4 0.0-12.0 % Eosinophils (%) (Auto) 1.1 0.0-7.0 % Basophils (%) (Auto) 0.1 0.0-2.0 % Neutrophils # (Auto) 4.8 1.6-8.6 10 ^3/uL Lymphocytes # (Auto) 1.4 0.4-5.4 10 ^3/uL Monocytes # (Auto) 0.4 0-1.3 10 ^3/uL Eosinophils # (Auto) 0.1 0-0.8 10 ^3/uL Basophils # (Auto) 0 0-0.2 10 ^3/uL Nucleated Red Blood Cells 0.0 % Sodium Level 137 136-145 mmol/L Potassium Level 4.9 3.5-5.1 mmol/L Chloride Level 98 98-107 mmol/L Carbon Dioxide Level 31 20-31 mmol/L Anion Gap 8 5-15 Blood Urea Nitrogen 29 H 9-23 mg/dL Creatinine 0.95 0.550-1.02 mg/dL Glomerular Filtration Rate Calc 58 >90 mL/min BUN/Creatinine Ratio 30.5 H 10.0-20.0 Serum Glucose 103 74-106 mg/dL Hemoglobin A1c 6.2 H <5.7 % A1C Calcium Level 9.9 8.7-10.4 mg/dL Phosphorus Level 4.5 2.4-5.1 mg/dL Magnesium Level 2.1 1.6-2.6 mg/dL Triglycerides Level 177 H < 150 mg/dL Cholesterol Level 267 H < 200 mg/dL LDL Cholesterol 163 H < 100 mg/dL HDL Cholesterol 83 H 40-59 mg/dL Lipase 28 12-53 U/L Vitamin B12 Level 560 211-911 pg/mL Vitamin D 25-Hydroxy 45.0 30.0-100 ng/mL Thyroid Stimulating Hormone (TSH) 0.70 0.55-4.78 uIU/mL Current Medications Medications (Trade) Dose Ordered Sig/Russell Route Start Time Stop Time Status Last Admin Aspirin 81 mg ONCE ONCE PO 03/23/25 15:00 03/23/25 16:20 DC 03/23/25 16:30 Clindamycin Phosphate 50 ml @ 50 mls/hr ONCE ONCE IV 03/23/25 15:15 03/23/25 16:20 DC 03/23/25 17:00 [place] [id number] Ph: [phone] DIAGNOSTIC IMAGING Diagnostic Imaging Report : [id number] Signed PATIENT: MELISSA STACY ACCT: [id number] UNIT: [id number] : 1940 LOC: ER ROOM / BED: / AGE / SEX: 85 / F ADM STATUS: REG ER SERVICE 1256 ORDERING PHYSICIAN: LESLYE BYERS NP PROCEDURE(s): RLDVT - RT Lower DVT REASON: foot pain ORDER NUMBER(s): [id number], ACCESSION NUMBER(s): [id number] Right lower extremity venous duplex Clinical History: foot pain Comparison: US BILAT LOWER DVT on DOS: 11/19/24 Findings: Duplex Doppler evaluation of the deep venous system of the right lower extremity from the common femoral vein to the popliteal vein including color Doppler and spectral/pulsed waveform analysis was performed. The common femoral vein demonstrates appropriate compressibility and waveform variability. There is compressibility/patency of the great saphenous vein at the proximal thigh. The femoral vein demonstrates appropriate compressibility and waveform variability. The deep femoral vein demonstrates appropriate compressibility and waveform variability. The popliteal vein demonstrates appropriate compressibility and waveform variability. There is normal compressibility at the tibioperoneal trunk. Impression: No right femoropopliteal venous thrombosis. If clinical concern/symptoms persist or worsen, short-interval follow-up study is suggested. ATED BY: KATELYN CHILDRESS MD DICTATED DATE/TIME: 03/23/251417 SIGNED BY: KATELYN CHILDRESS MD SIGNED DATE/TIME: 03/23/251417 CC: [place] [id number] Ph: [phone] DIAGNOSTIC IMAGING Diagnostic Imaging Report : [id number] Signed PATIENT: MELISSA STACY ACCT: [id number] UNIT: [id number] : 1940 LOC: ER ROOM / BED: / AGE / SEX: 85 / F ADM STATUS: REG ER SERVICE 1256 ORDERING PHYSICIAN: LESLYE BYERS NP PROCEDURE(s): RLEAD - Rt Low Ext Art Duplex REASON: R/o occlusion ORDER NUMBER(s): [id number], ACCESSION NUMBER(s): [id number] Indication: R/o occlusion Technique: Real- time ultrasound images of the right lower extremity with grayscale, color, and spectral wave Doppler. Comparison: None Findings: Moderate plaque in the right WEEKEND ANCHOR. Diffuse right lower extremity biphasic waveforms. Peak systolic velocities are as follows (in cm/s): Right: Common femoral artery: 167 Profunda femoris: 97 Proximal superficial femoral: 113 Mid superficial femoral artery: 95 Distal superficial femoral artery: 100 Popliteal artery: 76 Posterior tibial artery: 93 Anterior tibial artery: 50 Dorsalis pedis artery: 31 Impression: Moderate plaque within the right WEEKEND ANCHOR with increased velocity could indicate moderate grade stenosis. No sonographic evidence for arterial occlusion/thrombosis ATED BY: LISA KIRKLAND MD DICTATED DATE/TIME: 03/23/251424 SIGNED BY: LISA KIRKLAND MD SIGNED DATE/TIME: 03/23/251424 CC: X-Ray, Labs, Meds, VS Comment Patient arrives alert and oriented, ABC's intact, afebrile, vital signs stable, saturating well in room air The differential diagnosis includes but is not limited to: DVT, thrombophlebitis, trauma, venous stasis, peripheral edema, cellulitis. Peripheral IV insertion+ labs were ordered. CBC was ordered to exclude anemia, blood loss, or infection. BMP was ordered to exclude electrolyte abnormalities, renal failure, dehydration, hyperglycemia Diagnostic imaging ordered by me and results interpreted by radiology : Rt lower Ext Art Duplex, Rt Lower DVT Patients work up was remarkable for right foot pain and purpura to the affected foot. The patient's workup reveals that the patient needs further evaluation and/or treatment for the above medical conditions. Patient verbalized understanding of the above and is awaiting further evaluation by the admitting service. Time of 1ST Reevaluation: 12:30 Reevaluation 1ST: Unchanged Time of 2ND Reevaluation: 14:39 Reevaluation 2ND: Improved Patient Education/Counseling: Diagnosis, Treatment Family Education/Counseling: No Family Present Departure 1 Departure Time of Disposition: 14:39 Impression: Primary Impression: PAD (peripheral artery disease) Additional Impression: Foot pain Qualified Codes: M79.673 - Pain in unspecified foot Disposition: 09 ADMITTED INPATIENT Condition: Fair Critical Care Note Critical Care Time?: No Stability Stability form required: No Heart Score Heart Score: Heart Score Response (Comments) Value History N/A 0 EKG N/A 0 Age N/A 0 Risk Factors N/A 0 Troponin N/A 0 Total 0 I personally scribed for LESLYE BYERS NP ([email or web address]) on 03/23/25 at 14:35. Electronically submitted by Malick Haile ([email or web address]). LESLYE BYERS NP Mar 23, 2025 14:35
[2025-03-23] MEDS ORDERED: ONDANSETRON HCL 4 MG/2 ML VIAL IV PRN (15:00)
[2025-03-23] MEDS ORDERED: ATORVASTATIN 20 MG TAB PO ONE (15:00)
[2025-03-23] MEDS ORDERED: MORPHINE SULFATE INJ 2 MG/ml SYRG IV PRN (15:00)
[2025-03-23] MEDS ORDERED: ACETAMINOPHEN 325 MG TAB PO PRN (15:00)
--- NOTE | 2025-03-23 15:02 | DVHHPRES ---
History of Present Illness Resident Creating Document: ANGIE ASHER RESIDENT Review of Systems Allergies: Coded Allergies: Penicillins (Verified Allergy, Unknown, 10/19/15) Exam Vital Signs Vital Signs Date Time Temp Pulse Resp B/P (MAP) Pulse Ox O2 Delivery O2 Flow Rate FiO2 03/23/25 11:30 98.0 75 14 158/90 98 98.0 Labs/Xrays Labs Test 03/23/25 13:22 Range/Units White Blood Count 6.8 4.4-10.8 10^3/uL Red Blood Count 4.60 4.0-5.20 10^6/uL Hemoglobin 14.4 12.2-16.2 g/dL Hematocrit 42.5 36.0-46.0 % Mean Corpuscular Volume 92.4 80.0-100.0 fL Mean Corpuscular Hemoglobin 31.3 28.0-32.0 pg Mean Corpuscular Hemoglobin Concent 33.9 32.0-36.0 g/dL Red Cell Distribution Width 12.8 11.8-14.3 % Platelet Count 242 140-450 10^3/uL Mean Platelet Volume 8.4 6.9-10.8 fL Neutrophils (%) (Auto) 71.5 37.0-80.0 % Lymphocytes (%) (Auto) 20.9 10.0-50.0 % Monocytes (%) (Auto) 6.4 0.0-12.0 % Eosinophils (%) (Auto) 1.1 0.0-7.0 % Basophils (%) (Auto) 0.1 0.0-2.0 % Neutrophils # (Auto) 4.8 1.6-8.6 10 ^3/uL Lymphocytes # (Auto) 1.4 0.4-5.4 10 ^3/uL Monocytes # (Auto) 0.4 0-1.3 10 ^3/uL Eosinophils # (Auto) 0.1 0-0.8 10 ^3/uL Basophils # (Auto) 0 0-0.2 10 ^3/uL Nucleated Red Blood Cells 0.0 % Sodium Level 137 136-145 mmol/L Potassium Level 4.9 3.5-5.1 mmol/L Chloride Level 98 98-107 mmol/L Carbon Dioxide Level 31 20-31 mmol/L Anion Gap 8 5-15 Blood Urea Nitrogen 29 H 9-23 mg/dL Creatinine 0.95 0.550-1.02 mg/dL Glomerular Filtration Rate Calc 58 >90 mL/min BUN/Creatinine Ratio 30.5 H 10.0-20.0 Serum Glucose 103 74-106 mg/dL Calcium Level 9.9 8.7-10.4 mg/dL SEPSIS Sepsis Screen Date sepsis recognized/suspect: Mar 23, 2025 Time Sepsis recognized/suspect: 1132 Recent Procedure: No On Antibiotic Therapy: No Respiratory Rate >20: No Heart Rate >90: No Temp<36 C (96.8 F) or >38.3 C: No SBP <90 or MAP <65 mmHG: No New Acute Mental Status Change: No Is the patient on CPAP, BIPAP,: No Physician Orders Rt Lower Dvt (03/23/25 12:56) Rt Low Ext Art Duplex (03/23/25 12:56) Admit (03/23/25 14:55) Code Status (03/23/25 14:55) Acetaminophen Tablet (Tylenol Tablet) (03/23/25 15:00) Ondansetron Hcl (Zofran) (03/23/25 15:00) Complete Blood Count (03/24/25 04:00) Comprehensive Metabolic Panel (03/24/25 04:00) Cardiac Diet-2gna,Lofat,Lochol (03/23/25 Dinner) Morphine Sulfate Injection (03/23/25 15:00) Lovenox 40mg (03/24/25 10:00) Oxygen By Nasal Cannula (03/23/25 14:55) Stat Ekg For Chest Pain (03/23/25 14:55) Notify Md Of Changes From Base (03/23/25 14:55) Cook Helper Preserves For 24 Hours (03/23/25 14:55) Emergency Dysrhythmia Protocol (03/23/25 14:55) Rhythm Strips Once Every Shift (03/23/25 14:55) Baclofen Tablet (Liorisal Tablet) (03/23/25 22:00) Ferrous Sulfate Tablet (03/23/25 22:00) Gabapentin Capsule (Neurontin Capsule) (03/23/25 22:00) Hydralazine Hcl Tablet (Apresoline Table (03/23/25 18:00) Metoprolol Tartrate Tablet (Lopressor Ta (03/23/25 22:00) Pantoprazole Tablet (Protonix Tablet) (03/24/25 10:00) (Nf) Alendronate Sodium (03/23/25 15:00) (Nf) Diclofenac Sodium (Topical) (Voltar (03/23/25 15:00) (Nf) Hydrochlorothiazide (03/24/25 10:00) (Nf) Lisinopril (03/24/25 10:00) Aspirin Tablet (03/24/25 10:00) Aspirin Tablet (03/23/25 15:00) Atorvastatin (Lipitor) (03/23/25 22:00) Atorvastatin (Lipitor) (03/23/25 15:00) R Foot 3 View Xray (03/23/25 14:55) Vital Signs Date Time Temp Pulse Resp B/P (MAP) Pulse Ox O2 Delivery O2 Flow Rate FiO2 03/23/25 11:30 98.0 75 14 158/90 98 98.0 Laboratory Tests Test 03/23/25 13:22 White Blood Count 6.8 10^3/uL (4.4-10.8) Assessment/Plan My Orders Orders - ANGIE ASHER RESIDENT Procedure Category Date Status Time Admit ADMIT 03/23/25 Transmitted 14:55 Code Status CODE 03/23/25 Transmitted 14:55 Acetaminophen Tablet PHA 03/23/25 Transmitted (Tylenol Tablet) 15:00 Ondansetron Hcl PHA 03/23/25 Transmitted (Zofran) 15:00 Complete Blood Count LAB 03/24/25 Verified 04:00 Comprehensive LAB 03/24/25 Verified Metabolic Panel 04:00 Cardiac DIET 03/23/25 Transmitted Diet-2gna,Lofat,Lochol Dinner Morphine Sulfate PHA 03/23/25 Transmitted Injection 15:00 Lovenox 40mg PHA 03/24/25 Transmitted 10:00 Oxygen By Nasal RT 03/23/25 Verified Cannula 14:55 Stat Ekg For Chest [facility] 03/23/25 Verified Pain 14:55 Notify Of Changes [facility] 03/23/25 Verified From Base 14:55 Cook Helper Preserves For [facility] 03/23/25 Verified 24 Hours 14:55 Emergency Dysrhythmia [facility] 03/23/25 Verified Protocol 14:55 Rhythm Strips Once [facility] 03/23/25 Verified Every Shift 14:55 Baclofen Tablet PHA 03/23/25 Verified (Liorisal Tablet) 22:00 Ferrous Sulfate Tablet PHA 03/23/25 Verified 22:00 Gabapentin Capsule PHA 03/23/25 Verified (Neurontin Capsule) 22:00 Hydralazine Hcl PHA 03/23/25 Verified Tablet (Apresoline 18:00 Metoprolol Tartrate PHA 03/23/25 Verified Tablet (Lopressor Ta 22:00 Pantoprazole Tablet PHA 03/24/25 Verified (Protonix Tablet) 10:00 (Nf) Alendronate PHA 03/23/25 Verified Sodium 15:00 (Nf) Diclofenac PHA 03/23/25 Verified Sodium (Topical) 15:00 (NF) PHA 03/24/25 Verified Hydrochlorothiazide 10:00 (Nf) Lisinopril PHA 03/24/25 Verified 10:00 Aspirin Tablet PHA 03/24/25 Verified 10:00 Aspirin Tablet PHA 03/23/25 Verified 15:00 Atorvastatin (Lipitor) PHA 03/23/25 Verified 22:00 Atorvastatin (Lipitor) PHA 03/23/25 Verified 15:00 R Foot 3 View Xray XY 03/23/25 Verified 14:55 ANGIE ASHER RESIDENT Mar 23, 2025 15:02
[2025-03-23] MEDS: CLINDAMYCIN 300MG IV 50 ML IV ONE (17:00)
--- NOTE | 2025-03-23 17:04 | DVHHPRES ---
History of Present Illness Resident Creating Document: ANGIE ASHER RESIDENT History of Present Illness Crissy Reece is a 85-year-old female patient who presents to ED with chief complaint of discoloration of right dorsal foot. Patient reports that discoloration started approximately 10 days before her admission after she stepped on a stone in the assisted living facility. Denies any other associated symptoms including fever, chills, sick contacts and recent travel. Past medical history: Hypertension, dyslipidemia, arthritis, questionable HOCM (followed by Dr. Walker), osteoporosis, neuropathy. Surgical history: Multiple, she does not recall. Family history: Mother had diabetes Social history: Lives in assisted living facility ([facility]), next of kin is daughter. Denies current tobacco, alcohol and other drug abuse Allergies: Penicillins Home medication: Does not recall. Per EMR she is on prednisone, calamine, levofloxacin, ferrous sulfate, metoprolol, codeine, hydralazine, baclofen, lisinopril, pantoprazole, alendronate, tramadol, gabapentin, hydrochlorothiazide Patient seen and examined at bedside. Currently has no new complaints. Patient admitted for further evaluation Past Medical History Per HPI Past Surgical History Per HPI Family History Per HPI Past Social History Per HPI Review of Systems Review of Systems Per HPI Allergies: Coded Allergies: Penicillins (Verified Allergy, Unknown, 10/19/15) Exam Vital Signs Vital Signs Date Time Temp Pulse Resp B/P (MAP) Pulse Ox O2 Delivery O2 Flow Rate FiO2 03/23/25 11:30 98.0 75 14 158/90 98 98.0 Exam Patient lying in bed, in no acute distress General: Lucid, afebrile, mucosae are moist Cardiovascular: Normal S1 and S2. No murmurs, gallops or rubs Respiratory: Normal ventilation mechanics. Clear lung sounds on auscultation Abdomen: Soft, nontender, no organomegaly, normal bowel sounds MSK/skin: Mobilizes 4 limbs. Skin is dry and warm. Diffuse Senile purpura. Patches of erythematous macules and dorsum of right foot, associated varicose veins. Neurological: Oriented in 3 spheres. No motor no sensitive deficits. Pupils are isocoric and reactive Labs/Xrays Labs Test 03/23/25 13:22 Range/Units White Blood Count 6.8 4.4-10.8 10^3/uL Red Blood Count 4.60 4.0-5.20 10^6/uL Hemoglobin 14.4 12.2-16.2 g/dL Hematocrit 42.5 36.0-46.0 % Mean Corpuscular Volume 92.4 80.0-100.0 fL Mean Corpuscular Hemoglobin 31.3 28.0-32.0 pg Mean Corpuscular Hemoglobin Concent 33.9 32.0-36.0 g/dL Red Cell Distribution Width 12.8 11.8-14.3 % Platelet Count 242 140-450 10^3/uL Mean Platelet Volume 8.4 6.9-10.8 fL Neutrophils (%) (Auto) 71.5 37.0-80.0 % Lymphocytes (%) (Auto) 20.9 10.0-50.0 % Monocytes (%) (Auto) 6.4 0.0-12.0 % Eosinophils (%) (Auto) 1.1 0.0-7.0 % Basophils (%) (Auto) 0.1 0.0-2.0 % Neutrophils # (Auto) 4.8 1.6-8.6 10 ^3/uL Lymphocytes # (Auto) 1.4 0.4-5.4 10 ^3/uL Monocytes # (Auto) 0.4 0-1.3 10 ^3/uL Eosinophils # (Auto) 0.1 0-0.8 10 ^3/uL Basophils # (Auto) 0 0-0.2 10 ^3/uL Nucleated Red Blood Cells 0.0 % Sodium Level 137 136-145 mmol/L Potassium Level 4.9 3.5-5.1 mmol/L Chloride Level 98 98-107 mmol/L Carbon Dioxide Level 31 20-31 mmol/L Anion Gap 8 5-15 Blood Urea Nitrogen 29 H 9-23 mg/dL Creatinine 0.95 0.550-1.02 mg/dL Glomerular Filtration Rate Calc 58 >90 mL/min BUN/Creatinine Ratio 30.5 H 10.0-20.0 Serum Glucose 103 74-106 mg/dL Calcium Level 9.9 8.7-10.4 mg/dL SEPSIS Sepsis Screen Date sepsis recognized/suspect: Mar 23, 2025 Time Sepsis recognized/suspect: 1133 Recent Procedure: No On Antibiotic Therapy: No Respiratory Rate >20: No Heart Rate >90: No Temp<36 C (96.8 F) or >38.3 C: No SBP <90 or MAP <65 mmHG: No New Acute Mental Status Change: No Is the patient on CPAP, BIPAP,: No Physician Orders Rt Lower Dvt (03/23/25 12:56) Rt Low Ext Art Duplex (03/23/25 12:56) Code Status (03/23/25 14:55) Complete Blood Count (03/24/25 04:00) Comprehensive Metabolic Panel (03/24/25 04:00) Cardiac Diet-2gna,Lofat,Lochol (03/23/25 Dinner) Oxygen By Nasal Cannula (03/23/25 14:55) Vital Signs Date Time Temp Pulse Resp B/P (MAP) Pulse Ox O2 Delivery O2 Flow Rate FiO2 03/23/25 11:30 98.0 75 14 158/90 98 98.0 Laboratory Tests Test 03/23/25 13:22 White Blood Count 6.8 10^3/uL (4.4-10.8) Medications Medications Dose Ordered Sig/Russell Route Start Time Stop Time Status Last Admin Dose Admin Aspirin 81 mg ONCE ONCE PO 03/23/25 15:00 03/23/25 16:20 DC 03/23/25 16:30 81 MG Assessment/Plan Assessment/Plan ASSESSMENT Probable right foot cellulitis Peripheral artery disease Rule out fracture Hypertension Dyslipidemia Osteoarthritis Osteoporosis Neuropathy Ruled out DVT Ruled out acute limb ischemia/peripheral occlusion PLAN Patient admitted to [facility] Completed ultrasound of right lower limb: Venous showed no DVT, arterial duplex showed moderate plaque within right common femoral artery with moderate grade stenosis (no severe stenosis) Ordered foot x-ray to rule out fractures and collections If deemed necessary, order MRI of foot Wound Care consulted. Due to moderate PAD, indicated Aspirin and Atorvastatin Currently under empiric IV antibiotic with clindamycin. Patient is allergic to penicillin Continued home medication: Lisinopril, gabapentin, hydrochlorothiazide, baclofen, hydralazine, metoprolol alendronate Goals of care discussed with patient for over 18 minutes: DNR/DNI. Per patient she has a advance directives. Discussed plan with Dr. Walden, patient and nurses: Patient admitted to [facility]. Currently on IV antibiotics. Ruled out severe acute ischemia and DVT. Ordered x-ray to rule out fracture and collection. Wound care consulted. Plan discussed with: Patient, Other (Nurses) My Orders Orders - ANGIE ASHER RESIDENT Procedure Category Date Status Time Code Status CODE 03/23/25 Transmitted 14:55 Complete Blood Count LAB 03/24/25 Verified 04:00 Comprehensive LAB 03/24/25 Verified Metabolic Panel 04:00 Cardiac DIET 03/23/25 Transmitted Diet-2gna,Lofat,Lochol Dinner Oxygen By Nasal RT 03/23/25 Transmitted Cannula 14:55 Date of Service: Mar 23, 2025 Billing Provider: LISA WALDEN MD Common Visit Codes: 89772-JPQCECK INP/OBS CARE (HIGH) Secondary Visit Codes: 71808-[id number] CARE PLAN 30 MINUTES ANGIE ASHER RESIDENT Mar 23, 2025 17:04
[2025-03-23 17:40] VITALS: BP 143/51; PULSE 62; RESP 18; TEMP 99; O2SAT 93
[2025-03-23 20:00] VITALS: PULSE 74; RESP 17; O2SAT 94
[2025-03-23 21:00] VITALS: BP 132/51; PULSE 74; RESP 17; TEMP 98.3; O2SAT 94
[2025-03-23 21:35] VITALS: PULSE 64; RESP 18; O2SAT 95
[2025-03-23] MEDS ORDERED: CLINDAMYCIN 300MG IV 50 ML IV SCH (22:00)
[2025-03-23 22:57] LABS: Magnesium 2.1 mg/dL (1.6-2.6)
[2025-03-23 22:58] LABS: Triglycerides 177.0 mg/dL (< 150)
[2025-03-23 23:00] LABS: Cholesterol 267.0 mg/dL (< 200); HDL Cholesterol 83.0 mg/dL (40-59)
[2025-03-23] MEDS: METOPROLOL TARTRATE 25 MG TAB PO SCH (23:01)
[2025-03-23] MEDS: BACLOFEN 10 MG TAB PO SCH (23:01)
[2025-03-23] MEDS: FERROUS SULFATE 325mg EC TAB PO SCH (23:02)
[2025-03-23] MEDS: ATORVASTATIN 20 MG TAB PO SCH (23:02)
[2025-03-23] MEDS: GABAPENTIN 300 MG CAP PO SCH (23:03)
[2025-03-23 23:27] VITALS: BP 147/66; PULSE 64; RESP 18; TEMP 97.4; O2SAT 95
--- NOTE | 2025-03-23 23:31 | DVH ---
CLINICAL INDICATION: CELLULITIS, pain and swelling TECHNIQUE: XYXY R FOOT 3 VIEW XRAY Comparison: None FINDINGS/IMPRESSION: : Bones are demineralized, limiting assessment. No obvious erosive changes or periostitis. No fracture or malalignment.
[2025-03-23 23:35] LABS: Lipase 28.0 U/L (12-53)
[2025-03-23] MEDS: CLINDAMYCIN 300MG IV 50 ML IV SCH (23:44)
[2025-03-23 23:49] LABS: INR 0.94 (0.9-1.15); Partial Thromboplastin Time 26.2 SEC (24.5-34.5); Prothrombin Time 10.0 sec (9.3-11.8)
[2025-03-24] VITALS (8 sets, daily range): BP systolic 115–140; BP diastolic 44–66; PULSE 57–87; RESP 14–18; TEMP 98–98.7; O2SAT 92–96
[2025-03-24 05:07] LABS: Urine Protein, UAD Negative (Negative)
[2025-03-24 05:25] LABS: Amphetamine Screen, Urine Neg (NEGATIVE); Barbiturate Scree,Urine Neg (NEGATIVE); Benzodiazephine Screen, Urine Neg (NEGATIVE); Cannabinoid Screen, Urine Neg (NEGATIVE); Cocaine Screen, Urine Neg (NEGATIVE); Opiate Scree,Urine Neg (NEGATIVE); Phencyclidine Screen, Urine Neg (NEGATIVE)
[2025-03-24 06:59] LABS: Hematocrit 39.2 % (36.0-46.0); Hemoglobin 13.1 g/dL (12.2-16.2); Mean Corpuscular Hemoglobin 31.0 pg (28.0-32.0); Mean Corpuscular Volume 92.6 fL (80.0-100.0); Nucleated Red Blood Cells % 0.1 %
[2025-03-24 07:19] LABS: Alanine Aminotransferase 12 U/L (7-40); Alkaline Phosphatase 61 U/L (46-116); Anion Gap 11 (5-15); BUN/Creatinine Ratio 30.8 (10.0-20.0); Calcium 9.4 mg/dL (8.7-10.4); Carbon Dioxide 27 mmol/L (20-31); Chloride 101 mmol/L (98-107); Glucose 92 mg/dL (74-106); Potassium 4.5 mmol/L (3.5-5.1); Sodium 139 mmol/L (136-145); Total Protein 6.7 g/dL (5.7-8.2)
[2025-03-24 07:20] LABS: Albumin 3.8 g/dL (3.2-4.8); Bilirubin, Total 0.6 mg/dL (0.2-1.0)
[2025-03-24 07:24] LABS: Blood Urea Nitrogen 28 mg/dL (9-23)
[2025-03-24] MEDS ORDERED: PANTOPRAZOLE 40 MG TAB PO ONE (09:30)
[2025-03-24] MEDS: PANTOPRAZOLE 40 MG TAB PO SCH (09:40)
[2025-03-24] MEDS: LISINOPRIL 5 MG TAB PO SCH (09:41)
[2025-03-24] MEDS: hydroCHLOROthiazide 25 MG TAB PO SCH (09:42)
[2025-03-24] MEDS: PANTOPRAZOLE 40 MG TAB PO ONE (09:43)
[2025-03-24] MEDS: ENOXAPARIN SOD 40 MG/0.4 ML SYRINGE SC SCH (10:00)
--- NOTE | 2025-03-24 13:07 | DVHPN2 ---
Progress Note Date Seen: Mar 24, 2025 Medical Necessity Reason Pt with a Central, PICC or Fol: No Subjective Review of Systems Crissy Reece is a 85-year-old female with past medical history of Hypertension, dyslipidemia, arthritis, questionable HOCM (followed by Dr. Walker), osteoporosis, neuropathy. presents to ED with chief complaint of discoloration of right dorsal foot. Patient reports that discoloration started approximately 10 days before her admission after she stepped on a stone in the assisted living facility. Denies any other associated symptoms including fever, chills, sick contacts and recent travel.Doppler study of the right lower extremity No right femoropopliteal venous thrombosis. arterial Doppler of the right lower extremity revealed -Moderate plaque within the right ABRASIVE GRINDER with increased velocity could indicate moderate grade stenosis. x-ray right foot-Bones are demineralized, limiting assessment.No obvious erosive changes or periostitis.No fracture or malalignment. Urinalysis revealed nitrite 2+, WBC 6, bacteria many. Past medical history: Hypertension, dyslipidemia, arthritis, questionable HOCM (followed by Dr. Walker), osteoporosis, neuropathy. Surgical history: Multiple, she does not recall. Family history: Mother had diabetes Social history: Lives in assisted living facility ([facility]), next of kin is daughter. Denies current tobacco, alcohol and other drug abuse Allergies: Penicillins Home medication: Does not recall. Per EMR she is on prednisone, calamine, levofloxacin, ferrous sulfate, metoprolol, codeine, hydralazine, baclofen, lisinopril, pantoprazole, alendronate, tramadol, gabapentin, hydrochlorothiazide Patient was seen today at bedside, labs and chart reviewed. Patient complained of right foot skin discoloration, patient was on clindamycin for right foot cellulitis. Doppler study of the right lower extremity No right femoropopliteal venous thrombosis. arterial Doppler of the right lower extremity revealed - Moderate plaque within the right ABRASIVE GRINDER with increased velocity could indicate moderate grade stenosis. x-ray right foot-Bones are demineralized, limiting assessment.No obvious erosive changes or periostitis.No fracture or malalignment. Ordered ceftriaxone for UTI, Ordered uterine culture. Spoke with the patient in presence of KRISTYN Payne, patient wished to be DNI DNR. Called patient's contact Lashawn [phone], did not chicken picker call, left a voice message. Patient asked me to call Alicia, granddaughter, , spoke to her and answered her questions and discussed the plan of care. Objective vital signs Vital Sign Date Time Temp Pulse Resp B/P (MAP) Pulse Ox O2 Delivery O2 Flow Rate FiO2 03/24/25 12:36 98.7 57 16 115/56 (75) 96 98.7 03/24/25 08:00 Room Air* 0 21 Total Intake and Output 03/23/25 03/23/25 03/24/25 15:00 23:00 07:00 Intake Total 50 ml Balance 50 ml medications Current Medications Medications Dose Ordered Sig/Russell Route Start Time Stop Time Status Last Admin Dose Admin Acetaminophen 325 mg Q4HP PRN PO 03/23/25 15:00 Ondansetron HCl 4 mg Q4HP PRN IV 03/23/25 15:00 Morphine Sulfate 2 mg Q4HPRN PRN IV 03/23/25 15:00 Enoxaparin Sodium 40 mg DAILY SC 03/24/25 10:00 03/24/25 10:00 40 MG Baclofen 5 mg BID PO 03/23/25 22:00 03/24/25 09:42 5 MG Gabapentin 300 mg TID PO 03/23/25 22:00 03/24/25 06:18 300 MG Hydralazine HCl 25 mg QID PO 03/23/25 18:00 03/24/25 06:18 25 MG Metoprolol Tartrate 12.5 mg BID PO 03/23/25 22:00 03/23/25 23:01 12.5 MG Pantoprazole Sodium 40 mg DAILYPRN PO 03/24/25 10:00 03/24/25 09:40 40 MG Patient Own Medication 1 tab QWEEKLY@0600 PO 03/24/25 06:00 Hold Patient Own Medication 1 % BID TOP 03/23/25 15:45 Hydrochlorothiazide 12.5 mg DAILY PO 03/24/25 10:00 03/24/25 09:42 12.5 MG Lisinopril 10 mg DAILY PO 03/24/25 10:00 03/24/25 09:41 10 MG Atorvastatin Calcium 40 mg HS PO 03/23/25 22:00 03/23/25 23:02 40 MG Clindamycin Phosphate 50 ml @ 50 mls/hr Q8HR IV 03/23/25 22:00 03/24/25 06:19 50 MLS/HR Ferrous Sulfate 325 mg DAILY PO 03/25/25 10:00 Aspirin 81 mg DAILY PO 03/25/25 10:00 Examination General examination- HEENT- PEERLA, no acute nasal discharge Cardiovascular- S1-S2 audible, rate and rhythm regular, no murmur Respiratory- CTAB, no wheeze or rhonchi Gastrointestinal-nontender, bowel sound+. Nondistended Musculoskeletal-no acute joint swelling or tenderness or redness Lower extremity- Neurological- cranial nerves intact, no acute dysarthria or dysphagia Psychiatry- denies depression or SI or HI Skin- no acute rash or purpura laboratory and microbiology Laboratory Tests 03/24/25 04:52 Test 03/24/25 04:52 Range/Units Serum Glucose 92 74-106 mg/dL Problem List/Assessment/Plan Problem List/Assessment/Plan Assessment plan #right foot cellulitis Peripheral artery disease Ruled out fracture Ruled out DVT -Doppler study of the right lower extremity No right femoropopliteal venous thrombosis. -arterial Doppler of the right lower extremity revealed -Moderate plaque within the right ABRASIVE GRINDER with increased velocity could indicate moderate grade stenosis. -x-ray right foot-Bones are demineralized, limiting assessment.No obvious erosive changes or periostitis.No fracture or malalignment. -continue ceftriaxone and clindamycin # UTI -urinalysis revealed nitrite 2+, WBC 6, bacteria many. -pending urine culture -continue ceftriaxone 1 g IV daily #Hypertension #Dyslipidemia -continue metoprolol 12.5 mg p.o. b.i.d. -lisinopril 10 mg p.o. daily -hydralazine 25 mg p.o. t.i.d. -atorvastatin 40 mg p.o. q.h.s. #Osteoarthritis #Osteoporosis #Neuropathy -continue gabapentin 300 mg p.o. t.i.d. # diabetes mellitus type 2 -hemoglobin A1c 6.2 -monitor blood sugar -low carb diet Goals of care, Code status DNI/DNR ; discussed with >15 minutes PUD prophylaxis: Pantoprazole DVT prophylaxis: Lovenox Plan discussed with Dr. Walden , nursing staff, Total time spent on patient evaluation, chart review, assessment and plan, discussion discussion >35 minutes Plan discussed with: Patient, Other (RN, grand daughter) My Orders My Orders Orders - SAIMA BOYCE Procedure Category Date Status Time Urine Bacterial MIKO 03/24/25 In Process Culture 08:00 Ferrous Sulfate Tablet PHA 03/25/25 In Process 10:00 Date of Service: Mar 24, 2025 Billing Provider: ILSA WALDEN MD Common Visit Codes: [id number] INP/OBS CARE(HIGH) SAIMA BOYCE Mar 24, 2025 13:07
--- NOTE | 2025-03-24 16:20 | MEDREC ---
PENDING SALE TO [facility] Intervention Section I PENDING SALE TO [facility] Intervention: IV to PO conversion (Suggest changing Clindamycin form IV to PO, as pt tolerating PO medications and enteral nutrition, is afebrile, and has no open wound) STEPHEN MONTANA PHARMACIST Mar 24, 2025 16:20
[2025-03-25 01:25] VITALS: BP 106/46; PULSE 62; RESP 17; TEMP 97.8; O2SAT 92
[2025-03-25 05:03] VITALS: BP 126/71; PULSE 57; RESP 18; TEMP 97.7; O2SAT 96
[2025-03-25 05:34] LABS: Hematocrit 40.8 % (36.0-46.0); Hemoglobin 13.8 g/dL (12.2-16.2); Mean Corpuscular Hemoglobin 31.6 pg (28.0-32.0); Mean Corpuscular Volume 93.2 fL (80.0-100.0); Nucleated Red Blood Cells % 0.0 %
[2025-03-25 05:42] LABS: Chloride 101 mmol/L (98-107); Potassium 4.7 mmol/L (3.5-5.1); Sodium 137 mmol/L (136-145)
[2025-03-25 05:43] LABS: Anion Gap 8 (5-15); Carbon Dioxide 28 mmol/L (20-31)
[2025-03-25 05:44] LABS: Calcium 9.6 mg/dL (8.7-10.4)
[2025-03-25 05:48] LABS: Glucose 100 mg/dL (74-106)
[2025-03-25 05:49] LABS: BUN/Creatinine Ratio 32.7 (10.0-20.0)
[2025-03-25 05:54] LABS: Blood Urea Nitrogen 33 mg/dL (9-23)
[2025-03-25 08:00] VITALS: PULSE 59; RESP 18; O2SAT 97
[2025-03-25 09:00] VITALS: BP 157/72; PULSE 59; RESP 18; TEMP 98.7; O2SAT 97
--- NOTE | 2025-03-25 09:38 | DVHDSRES ---
Discharge Summary Date of Admission Resident Creating Document: SAIMA BOYCE RESIDENT Mar 23, 2025 at 17:03 Date of Discharge: Mar 25, 2025 Admitting Diagnosis Right foot cellulitis Labs/Diagnostic Data: Laboratory Results Test 03/25/25 04:35 03/24/25 04:52 03/24/25 04:10 03/23/25 22:50 White Blood Count 6.2 10^3/uL (4.4-10.8) Red Blood Count 4.37 10^6/uL (4.0-5.20) Hemoglobin 13.8 g/dL (12.2-16.2) Hematocrit 40.8 % (36.0-46.0) Mean Corpuscular Volume 93.2 fL (80.0-100.0) Mean Corpuscular Hemoglobin 31.6 pg (28.0-32.0) Mean Corpuscular Hemoglobin Concent 33.9 g/dL (32.0-36.0) Red Cell Distribution Width 13.0 % (11.8-14.3) Platelet Count 209 10^3/uL (140-450) Mean Platelet Volume 9.1 fL (6.9-10.8) Neutrophils (%) (Auto) 64.0 % (37.0-80.0) Lymphocytes (%) (Auto) 24.3 % (10.0-50.0) Monocytes (%) (Auto) 8.9 % (0.0-12.0) Eosinophils (%) (Auto) 2.7 % (0.0-7.0) Basophils (%) (Auto) 0.1 % (0.0-2.0) Neutrophils # (Auto) 4.0 10 ^3/uL (1.6-8.6) Lymphocytes # (Auto) 1.5 10 ^3/uL (0.4-5.4) Monocytes # (Auto) 0.6 10 ^3/uL (0-1.3) Eosinophils # (Auto) 0.2 10 ^3/uL (0-0.8) Basophils # (Auto) 0 10 ^3/uL (0-0.2) Nucleated Red Blood Cells 0.0 % Sodium Level 137 mmol/L (136-145) Potassium Level 4.7 mmol/L (3.5-5.1) Chloride Level 101 mmol/L (98-107) Carbon Dioxide Level 28 mmol/L (20-31) Anion Gap 8 (5-15) Blood Urea Nitrogen 33 mg/dL (9-23) Creatinine 1.01 mg/dL (0.550-1.02) Glomerular Filtration Rate Calc 54 mL/min (>90) BUN/Creatinine Ratio 32.7 (10.0-20.0) Serum Glucose 100 mg/dL (74-106) Calcium Level 9.6 mg/dL (8.7-10.4) Total Bilirubin 0.6 mg/dL (0.2-1.0) Aspartate Amino Transferase (AST) 13 U/L (13-40) Alanine Aminotransferase (ALT) 12 U/L (7-40) Alkaline Phosphatase 61 U/L (46-116) Total Protein 6.7 g/dL (5.7-8.2) Albumin 3.8 g/dL (3.2-4.8) Urine Color Light-yellow (Yellow) Urine Clarity Clear (Clear) Urine pH 7.0 (5.0-9.0) Urine Specific [place] 1.017 (1.001-1.035) Urine Protein Negative (Negative) Urine Ketones Negative (Negative) Urine Blood Negative /uL (Negative) Urine Nitrite 2+ (Negative) Urine Bilirubin Negative (Negative) Urine Urobilinogen Normal mg/dL (Negative) Urine Leukocyte Esterase Negative /uL (Negative) Urine RBC None seen /hpf (0 - 4) Urine Microscopic WBC 6 /HPF (0-5) Urine Squamous Epithelial Cells Mod /hpf (<5) Urine Bacteria Many /hpf (None Seen) Urine Mucus Few (None Seen) Urine Glucose Normal mg/dL (Normal) Urine Opiates Screen Neg (NEGATIVE) Urine Fentanyl Screen Neg (NEGATIVE) Urine Barbiturates Screen Neg (NEGATIVE) Urine Phencyclidine Screen Neg (NEGATIVE) Urine Amphetamines Screen Neg (NEGATIVE) Urine Benzodiazepines Screen Neg (NEGATIVE) Urine Cocaine Screen Neg (NEGATIVE) Urine Cannabinoids Screen Neg (NEGATIVE) Prothrombin Time 10.0 sec (9.3-11.8) Prothrombin Time INR 0.94 (0.9-1.15) Activated Partial Thromboplast Time 26.2 SEC (24.5-34.5) Lactic Acid Level 0.8 mmol/L (0.4-2.0) Test 03/23/25 13:22 Hemoglobin A1c 6.2 % A1C (<5.7) Phosphorus Level 4.5 mg/dL (2.4-5.1) Magnesium Level 2.1 mg/dL (1.6-2.6) Triglycerides Level 177 mg/dL (< 150) Cholesterol Level 267 mg/dL (< 200) LDL Cholesterol 163 mg/dL (< 100) HDL Cholesterol 83 mg/dL (40-59) Lipase 28 U/L (12-53) Vitamin B12 Level 560 pg/mL (211-911) Vitamin D 25-Hydroxy 45.0 ng/mL (30.0-100) Thyroid Stimulating Hormone (TSH) 0.70 uIU/mL (0.55-4.78) Other Laboratory Tests 03/25/25 04:35 Brief Hx & Hospital Course: Crissy Stacy is a 85-year-old female with past medical history of Hypertension, dyslipidemia, arthritis, questionable HOCM (followed by Dr. Walker), osteoporosis, neuropathy. presents to ED with chief complaint of discoloration of right dorsal foot. Patient reports that discoloration started approximately 10 days before her admission after she stepped on a stone in the assisted living facility. Denies any other associated symptoms including fever, chills, sick contacts and recent travel.Doppler study of the right lower extremity No right femoropopliteal venous thrombosis. arterial Doppler of the right lower extremity revealed -Moderate plaque within the right [employer]IST with increased velocity could indicate moderate grade stenosis. x-ray right foot-Bones are demineralized, limiting assessment.No obvious erosive changes or periostitis.No fracture or malalignment. Urinalysis revealed nitrite 2+, WBC 6, bacteria many. Patient is treated conservatively with the IV antibiotic ceftriaxone and clindamycin for UTI and cellulitis. Patient clinically improving. Patient is being discharged to the facility she came from [facility] with levofloxacin 250 mg p.o. daily for 5 days.. Patient was advised to follow up with at the discharge clinic, PCP. Patient was hemodynamically stable discharge General examination- awake, alert, oriented HEENT- PEERLA, no acute nasal discharge Cardiovascular- S1-S2 audible, rate and rhythm regular, no murmur Respiratory- CTAB, no wheeze or rhonchi Gastrointestinal-nontender, bowel sound+. Nondistended Musculoskeletal-no acute joint swelling or tenderness or redness Lower extremity- reduce on the still part of the dorsum of the right foot and also plantar surface of the right foot Neurological- cranial nerves intact, no acute dysarthria or dysphagia Psychiatry- denies depression or SI or HI Skin- no acute rash or purpura Plan of care discussed with Dr. Walden Operations or Procedures [place] [id number] Ph: [phone] DIAGNOSTIC IMAGING Diagnostic Imaging Report : [id number] Signed PATIENT: MELISSA STACY ACCT: [id number] UNIT: [id number] : 1940 LOC: ER ROOM / BED: / AGE / SEX: 85 / F ADM STATUS: REG ER SERVICE 1256 ORDERING PHYSICIAN: LESLYE BYERS NP PROCEDURE(s): RLEAD - Rt Low Ext Art Duplex REASON: R/o occlusion ORDER NUMBER(s): [id number], ACCESSION NUMBER(s): [id number] Indication: R/o occlusion Technique: Real- time ultrasound images of the right lower extremity with grayscale, color, and spectral wave Doppler. Comparison: None Findings: Moderate plaque in the right [employer]S SPECIALIST. Diffuse right lower extremity biphasic waveforms. Peak systolic velocities are as follows (in cm/s): Right: Common femoral artery: 167 Profunda femoris: 97 Proximal superficial femoral: 113 Mid superficial femoral artery: 95 Distal superficial femoral artery: 100 Popliteal artery: 76 Posterior tibial artery: 93 Anterior tibial artery: 50 Dorsalis pedis artery: 31 Impression: Moderate plaque within the right PARTS SPECIALIST with increased velocity could indicate moderate grade stenosis. No sonographic evidence for arterial occlusion/thrombosis ATED BY: LISA KIRKLAND MD DICTATED DATE/TIME: 03/23/251424 SIGNED BY: LISA KIRKLAND MD SIGNED DATE/TIME: 03/23/251424 CC: [address] [id number] Ph: [phone] DIAGNOSTIC IMAGING Diagnostic Imaging Report : [id number] Signed PATIENT: MELISSA STACY ACCT: [id number] UNIT: [id number] : 1940 LOC: ER ROOM / BED: / AGE / SEX: 85 / F ADM STATUS: REG ER SERVICE 1256 ORDERING PHYSICIAN: LESLYE BYERS NP PROCEDURE(s): RLDVT - RT Lower DVT REASON: foot pain ORDER NUMBER(s): [id number], ACCESSION NUMBER(s): [id number] Right lower extremity venous duplex Clinical History: foot pain Comparison: US BILAT LOWER DVT on DOS: 11/19/24 Findings: Duplex Doppler evaluation of the deep venous system of the right lower extremity from the common femoral vein to the popliteal vein including color Doppler and spectral/pulsed waveform analysis was performed. The common femoral vein demonstrates appropriate compressibility and waveform variability. There is compressibility/patency of the great saphenous vein at the proximal thigh. The femoral vein demonstrates appropriate compressibility and waveform variability. The deep femoral vein demonstrates appropriate compressibility and waveform variability. The popliteal vein demonstrates appropriate compressibility and waveform variability. There is normal compressibility at the tibioperoneal trunk. Impression: No right femoropopliteal venous thrombosis. If clinical concern/symptoms persist or worsen, short-interval follow-up study is suggested. ATED BY: KATELYN CHILDRESS MD DICTATED DATE/TIME: 03/23/251417 SIGNED BY: KATELYN CHILDRESS MD SIGNED DATE/TIME: 03/23/251417 CC: [place] [id number] Ph: [phone] DIAGNOSTIC IMAGING Diagnostic Imaging Report : [id number] Signed PATIENT: MELISSA STACY ACCT: [id number] UNIT: [id number] : 1940 LOC: [facility] ROOM / BED: [address] [place] [address] AGE / SEX: 85 / F ADM STATUS: ADM IN SERVICE ORDERING PHYSICIAN: ANGIE ASHER PROCEDURE(s): RFOOT - R FOOT 3 VIEW XRAY REASON: CELLULITIS ORDER NUMBER(s): [id number], ACCESSION NUMBER(s): [id number] CLINICAL INDICATION: CELLULITIS, pain and swelling TECHNIQUE: XYXY R FOOT 3 VIEW XRAY Comparison: None FINDINGS/IMPRESSION: : Bones are demineralized, limiting assessment. No obvious erosive changes or periostitis. No fracture or malalignment. ATED BY: KATELYN CHILDRESS MD DICTATED DATE/TIME: 03/23/252327 SIGNED BY: KATELYN CHILDRESS MD SIGNED DATE/TIME: 03/23/252327 CC: Condition at Discharge: Stable Final Diagnosis/Problems List #right foot cellulitis Peripheral artery disease Ruled out fracture Ruled out DVT # UTI #Hypertension #Dyslipidemia #Osteoarthritis #Osteoporosis #Neuropathy # diabetes mellitus type 2 Discharge Disposition: Assisted Living Facility Discharge Instruct/Medications Diet: Consistent carbohydrate, Cardiac 2g Na,low cholest Activity: Light activity Follow Up/Referral: DC clinic PCP Medications: See prescription Scheduled Acetaminophen W/ Codeine (Acetaminophen/Codeine), 1 TAB PO DAILY, (Reported) Alendronate Sodium (Alendronate Sodium), 1 TAB PO QWEEKLY, (Reported) Baclofen (Baclofen), 5 MG PO BID PRN, (Reported) Diclofenac Sodium (Topical) (Voltaren Arthritis Pain), 1 % TOP BID PRN, (Reported) Ferrous Sulfate (Ferrous Sulfate), 1 TAB PO BID Gabapentin (Neurontin Capsule), 300 MG OR TID, (Reported) Hydralazine HCl (Hydralazine HCl), 1 TAB PO QID, (Reported) Hydrochlorothiazide (Hydrochlorothiazide), 1 CAP PO DAILY, (Reported) Levofloxacin Hemihydrate (Levaquin 500 Mg), 500 MG PO DAILY Levofloxacin Hemihydrate (Levofloxacin), 250 MG PO DAILY Lisinopril (Lisinopril), 1 TAB PO DAILY, (Reported) Metoprolol Tartrate (Lopressor), 12.5 MG PO BID Pantoprazole Sodium Sesquihydr (Pantoprazole Sodium), 1 TAB PO DAILYPRN, (Reported) Prednisone (Prednisone), 20 MG PO DAILY Tramadol Hcl (Tramadol Hcl), 50 MG PO PRN, (Reported) Scheduled PRN Calamine (Sm Calamine), 1 APPLIC TOP QIDP PRN Discharge Statement: "Patient was advised to return to the ER or call 911 if any headaches, dizziness, shortness of breath, chest pain, abdominal pain, bleeding, fevers, or worsening of medical condition. Patient was counseled about treatment plan, medications, possible side effects, patientverbalized understanding. All questions were answered to the best of my ability. This discharge took greater then 30 minutes in planning, reviewing documentation, counseling the patient, and discussing with other team members." ASSESSMENT ASSESSMENT Assessment Date of Service: Mar 25, 2025 Billing Provider: LISA WALDEN MD Common Visit Codes: 30625-FTH/OBS DISCH DAY >30min SAIMA BOYCE RESIDENT Mar 25, 2025 09:38
[2025-03-25] MEDS: FERROUS SULFATE 325mg EC TAB PO SCH (10:04)
[2025-03-25] MEDS: PANTOPRAZOLE 40 MG TAB PO SCH (10:06)
[2025-03-25] MEDS: ASPirin-EC 81 mg tab PO SCH (10:19)
[2025-03-25 12:44] VITALS: BP 123/52; PULSE 64; RESP 16; TEMP 98.5; O2SAT 94
[2025-03-25] MEDS ORDERED: LEVO250T58 PO (13:00)
[2025-03-25 15:16] VITALS: PULSE 61; TEMP 36.9
== END 2025-03-25 16:05 | disposition home or self-care (01) | DRG 300 ==
LOC: ER 11:28 → EDBD 11:28 → OVERFLOW 14:55 → UNDOADMIN 14:55 → ER 15:01 → OVERFLOW 17:03 → WEST WING 21:12
PROVIDERS: ADMIT Internal Medicine Geriatric Medicine; ATTEND Internal Medicine Geriatric Medicine
DX: E11.51 Type 2 diabetes mellitus with diabetic peripheral angiopathy without gangrene (principal); L03.115 Cellulitis of right lower limb; N39.0 Urinary tract infection, site not specified; E11.40 Type 2 diabetes mellitus with diabetic neuropathy, unspecified; I10 Essential (primary) hypertension; E78.5 Hyperlipidemia, unspecified; M81.0 Age-related osteoporosis without current pathological fracture; M19.09 Primary osteoarthritis, other specified site; Z88.0 Allergy status to penicillin; Z79.899 Other long term (current) drug therapy; Z90.49 Acquired absence of other specified parts of digestive tract; Z90.710 Acquired absence of both cervix and uterus; Z83.3 Family history of diabetes mellitus
CPT/HCPCS: 36415; 73630; 80048; 80053; 80061; 80307; 81001; 82306; 82607; 83036; 83605; 83690; 83735; 84100; 84443; 85025; 85610; 85730; 87086; 93926; 93971; 96365; G0378; J3490